=== PATIENT | male | born 1945 | race Caucasian/White ===

== ENCOUNTER 2018-07-07 11:53 | Emergency (ER) | payer MEDICARE, OTHER, SELFPAY ==
[2018-07-07 11:54] VITALS: BP 154/82; PULSE 96; RESP 17; TEMP 37.9; O2SAT 97; BMI 27.9
[2018-07-07] MEDS: 0.9% Normal Saline 1,000 ML 999 ML IV (12:52)
[2018-07-07 12:55] LABS: Mucous, Urine 0 SEEN /hpf (<or=2+)
[2018-07-07 12:56] LABS: Absolute Lymphocyte Count 0.92 X10^3/ul (0.83-4.51); Absolute Neutrophil Count 13.9 X10^3/uL (2.0-7.7); Basophil# 0.04 X10^3/uL; Basophil% 0.3 % (0-1); Eosinophil# 0.04 X10^3/uL; Eosinophils% 0.3 % (0-5); Hematocrit 41.8 % (40-54); Hemoglobin 14.1 g/dl (13.0-16.5); Lymphocyte # 0.92 X10^3/ul (4.0); Lymphocyte % 5.8 % (19-41); Mean Corp Hgb Conc 33.7 g/gl (32-36); Mean Corpuscular Hgb 31.3 pg (27.0-32.0); Mean Corpuscular Volume 92.9 fL (80-94); Mean Platelet Vol. 9.7 fl (6.2-12.0); Monocyte# 1.09 X10^3/uL; Monocyte% 6.8 % (0-10); Neutrophil # 13.85 X10^3/uL (2.7-7.7); Neutrophil % 86.6 % (47-70); Platelet Count 143 K/mm3 (150-450); RBC Distribution Width CV 12.2 % (11.6-14.6)
[2018-07-07 12:56] LABS: Color, Urine Yellow (Yellow); Glucose, Dipstick Normal (Normal); Ketone-Dipstick Negative (Negative); Leukocyte Esterase-Dipstick 500 /ul (Negative); Nitrite-Dipstick Positive (Negative); Occult Blood-Urine 150 /ul (Negative); Protein-Dipstick 30 mg/dl (Negative); Urine Bilirubin Dipstick Negative (Negative); Urine Clarity Cloudy (Clear); Urine Urobilinogen 1 mg/dl (Normal)
[2018-07-07 12:57] LABS: POSITIVE COUNT NO; POSITIVE DIFFERENTIAL NO; POSITIVE MORPHOLOGY NO
[2018-07-07 13:04] LABS: Bacteria 2+ /hpf (None Seen); Red Blood Cells-Urine 0-5 SEEN /hpf (0-5); Squamous Epithelial Cells - UA 0-5 SEEN /hpf (0-5); White Blood Cells 50-100 SEEN /hpf (0-5)
[2018-07-07 13:06] LABS: Anion Gap 10 (5-15); BUN 16 mg/dL (7-18); BUN/Creat Ratio 14.3 RATIO (10-20); Calcium,Total 8.9 mg/dL (8.5-10.1); Chloride 105 mmol/L (98-107); Creatinine, Serum 1.12 mg/dL (0.70-1.30); EST Glomerular Filtration Rate 69 mL/min (>60); Est Glom Filt Rate - Afr Amer 83 mL/min (>60); Estimated Creatinine Clearance 61.56 ml/min; Glucose 108 mg/dL (74-106); Potassium 4.1 mmol/L (3.5-5.1); Sodium Level 141 mmol/L (136-145)
[2018-07-07 13:11] LABS: Lactic Acid 1.8 mmol/L (0.4-2.0)
--- NOTE | 2018-07-07 13:25 | ED.DCSUM_ITS ---
- ER Visit Summary Date of Service: 07/07/18 Chief Complaint: Fever and UTI History of Present Illness: The patient is a 73 M who presents with dysuria frequency and urgency. This is been present for about 3 days. He was seen at the urgent care earlier today and diagnosed with a UTI and prescribed Cipro. His temperature was 100.5. He states the healthcare provider warned them multiple times that if his temperature was over 101 however he needed to go to the emergency department. He was monitoring his temperature at home and had a fever of 101.3. He also reports some associated headache and nausea. He complains of chronic cough and chronic back pain which are unchanged. He does have a history of BPH. No vomiting. No diarrhea. Physical Examination: Temperature 100.2 vitals otherwise unremarkable Moist mucous membranes Heart regular rate and rhythm Lungs clear Abdomen soft nontender Alert Test Results: Laboratory studies notable for white blood cell count 16,000. Urinalysis is consistent with infection with 500 leukocyte esterase, positive nitrates, 50-100 WBCs and 2+ bacteria. Renal function is normal and lactic acid is normal. Emergency Department Course and Treatment: Patient was treated with IV fluids here. On reevaluation he states that he feels well. He does have a leukocytosis but he does not have evidence of severe sepsis or septic shock. We discussed hospital observation versus close outpatient follow-up. The patient would prefer to go home. He was instructed on specific signs and symptoms to monitor for. He was given clear instructions to return to the emergency departm ent for any new or worsening symptoms and will follow up with his primary care physician as an outpatient. We also sent a urine culture. Patient discharged. Treatment Plan: [] Disposition: Discharge Impression: UTI This note was generated with [employer] dictation software. It may contain incorrect words, spelling, and punctuation that were not noted in review of the chart prior to signing ED Disposition - Plan for ED Patient: Chief Complaint: Fever Referrals: Adam Jones MD [Primary Care Provider] -
--- NOTE | 2018-07-07 13:25 | ED.DEP ---
ED Disposition - Plan for ED Patient: Chief Complaint: Fever Instructions: ED UTI Cystitis Male Referrals: Adam Jones MD [Primary Care Provider] -
[2018-07-07 13:36] VITALS: PULSE 95; RESP 17; O2SAT 100
== END 2018-07-07 13:37 | disposition home or self-care (01) ==
LOC: ED 12:37
PROVIDERS: Emergency Provider Emergency Medicine; Family Provider Family Medicine; PCP Family Medicine
DX: N39.0 Urinary tract infection, site not specified (principal); I25.10 Atherosclerotic heart disease of native coronary artery without angina pectoris; I25.2 Old myocardial infarction; I10 Essential (primary) hypertension; N40.1 Benign prostatic hyperplasia with lower urinary tract symptoms; R35.0 Frequency of micturition; R39.15 Urgency of urination; Z79.82 Long term (current) use of aspirin; Z79.899 Other long term (current) drug therapy
CPT/HCPCS: 36415; 80048; 81001; 83605; 85025; 87040; 87086; 87088; 96360; 99283; J7030

== ENCOUNTER 2018-07-08 19:12 | Emergency (ER) | payer MEDICARE, OTHER, SELFPAY ==
[2018-07-08 19:13] VITALS: BP 115/77; PULSE 122; RESP 19; TEMP 39.4; O2SAT 98; BMI 26.6
[2018-07-08 20:22] LABS: Absolute Lymphocyte Count 0.89 X10^3/ul (0.83-4.51); Absolute Neutrophil Count 15.9 X10^3/uL (2.0-7.7); Basophil# 0.02 X10^3/uL; Basophil% 0.1 % (0-1); Differential Indicated SCAN CRITERIA MET; Eosinophil# 0.01 X10^3/uL; Eosinophils% 0.1 % (0-5); Hematocrit 39.2 % (40-54); Hemoglobin 12.9 g/dl (13.0-16.5); Lymphocyte # 0.89 X10^3/ul (4.0); Lymphocyte % 4.9 % (19-41); Mean Corp Hgb Conc 32.9 g/gl (32-36); Mean Corpuscular Hgb 30.6 pg (27.0-32.0); Mean Corpuscular Volume 93.1 fL (80-94); Mean Platelet Vol. 10.4 fl (6.2-12.0); Monocyte# 1.53 X10^3/uL; Monocyte% 8.3 % (0-10); Neutrophil # 15.85 X10^3/uL (2.7-7.7); Neutrophil % 86.4 % (47-70); POSITIVE COUNT NO; POSITIVE DIFFERENTIAL YES; POSITIVE MORPHOLOGY YES; Platelet Count 116 K/mm3 (150-450); RBC Distribution Width CV 12.8 % (11.6-14.6); RBC Distribution Width SD 43.4 fl (35.1-43.9); Red Blood Count 4.21 M/mm3 (4.6-6.2); White Blood Count 18.3 K/mm3 (4.4-11.0)
[2018-07-08] MEDS: 0.9% Normal Saline 1,000 ML 1000 ML IV (20:22)
[2018-07-08] MEDS: Ceftriaxone 1 GM/50 ML BAG IV (20:22)
[2018-07-08] MEDS: Ibuprofen 600 MG Tablet PO (20:22)
[2018-07-08 20:31] LABS: Anion Gap 7 (5-15); BUN 19 mg/dL (7-18); BUN/Creat Ratio 14.8 RATIO (10-20); Calcium,Total 8.8 mg/dL (8.5-10.1); Chloride 105 mmol/L (98-107); Creatinine, Serum 1.28 mg/dL (0.70-1.30); EST Glomerular Filtration Rate 59 mL/min (>60); Est Glom Filt Rate - Afr Amer 71 mL/min (>60); Estimated Creatinine Clearance 53.86 ml/min; Glucose 104 mg/dL (74-106); Potassium 3.7 mmol/L (3.5-5.1); Sodium Level 137 mmol/L (136-145)
[2018-07-08 20:43] LABS: Anisocytosis RARE; Macrocytosis RARE; Platelet Estimate SLT DEC (ADEQ)
[2018-07-08 22:03] VITALS: BP 137/86; PULSE 87; RESP 17; TEMP 37.1; O2SAT 96
--- NOTE | 2018-07-08 22:13 | ED.VISSUMM ---
- ER Visit Summary Date of Service: 07/08/18 Chief Complaint: Fever History of Present Illness: The patient is a 73 M history of hypertension and BPH. Prior CABG and bovine heart valve. Patient was seen and treated yesterday in the emergency department. Diagnosed with a UTI. And discharged home on Cipro. He had blood and urine culture sent yesterday which have not returned as of yet. He had continued fever today and they brought him in for further evaluation. He has had nausea and vomited once today. No diarrhea. No cough. Physical Examination: Vital signs are stable. Fever is 102.9. Pulse ox 98% on room air. No hypoxia. Initial blood pressure is 115/77. He does not look septic. He does not look toxic. He does not look significantly dehydrated. H EENT exam unremarkable. Moist mucous membranes. Neck nontender. No meningismus. Lungs there to auscultation bilaterally. Heart regular rhythm rate about 120 no murmur. Abdomen soft. Nondistended. Normal bowel sounds. Mild suprapubic discomfort. No hernias or masses. No peritoneal signs. He is moving all 4 extremities. Calves are nontender without edema. Skin is without rashes. No petechiae or purpura. Back is nontender. Neurologically he is awake and alert with no focal motor deficits. I did do a rectal exam on the patient he has a firm nontender and non-boggy prostate. Currently he does not have signs of a prostate infection. Test Results: CBC showed a white count of 18,300. Yesterday it was 16,000. Hemoglobin of 12.1. No bands. Chemistries normal. Creatinine of 1.2. Emergency Department Course and Treatment: Patient treated with IV fluids. P.o. Motrin in the ER. And 1 g of IV Rocephin. Repeat exam he is doing very well at 2205. He feels comfortable being discharged home. He has been up ambulating. His blood pressure is stable. Currently he is afebrile. Both he and his are comfortable with him being discharged home. Treatment Plan: Tenuous current medications and his current antibiotic. Follow-up with his primary care physician Dr. Jones in the next several days. Return if worse. Disposition discharge Impression: Acute fever secondary to UTI This note was generated with [employer] dictation software. It may contain incorrect words, spelling, and punctuation that were not noted in review of the chart prior to signing ED Disposition - Plan for ED Patient: Chief Complaint: Fever Referrals: Adam Jones MD [Primary Care Provider] -
--- NOTE | 2018-07-08 22:18 | ED.DEP ---
ED Disposition - Plan for ED Patient: Disposition: Home or Assisted Living Chief Complaint: Fever Instructions: ED UTI Cystitis Male Referrals: Adam Jones MD [Primary Care Provider] - As soon as possible Additional Instructions: Plenty of fluids and rest. Tylenol for fever and limited Motrin. Continue your current antibiotics. If the blood or urine cultures come back and are different than the antibiotic you are on he will be notified. Follow-up with your doctor this week. Return if feeling worse.
[2018-07-08 22:29] VITALS: BP 146/70; PULSE 76; RESP 20; O2SAT 96
[2018-07-10 09:12] LABS: Pathologist Review Reviewed
== END 2018-07-08 22:30 | disposition home or self-care (01) ==
PROVIDERS: Emergency Provider Emergency Medicine; Family Provider Family Medicine; PCP Family Medicine
DX: N39.0 Urinary tract infection, site not specified (principal); R50.9 Fever, unspecified; I10 Essential (primary) hypertension; N40.0 Benign prostatic hyperplasia without lower urinary tract symptoms; I25.10 Atherosclerotic heart disease of native coronary artery without angina pectoris; Z95.1 Presence of aortocoronary bypass graft
CPT/HCPCS: 80048; 85025; 96365; 96366; 99284; J7030; A4216

== ENCOUNTER → 2020-04-13 09:55 | Outpatient (CLI) | payer MEDICARE, OTHER, SELFPAY ==
[2020-04-13 09:14] VITALS: BMI 27.5
[2020-04-13 10:55] LABS: AST(SGOT) 20 U/L (15-37); Alanine Aminotransfer ALT/SGPT 18 U/L (16-61); Albumin, Serum 3.6 g/dL (3.2-5.0); Alkaline Phosphatase 84 U/L (45-117); Bilirubin, Direct 0.16 mg/dL (0.00-0.30); Cholesterol 113 mg/dL (200); Globulin 3.2 g/dL (2.2-4.2); High Density Lipoprotein 34 mg/dL; Protein, Total 6.8 g/dL (6.4-8.2); Triglycerides 109 mg/dL; Very Low Density Lipoprotein 22 mg/dL (5-40)
== END ==
PROVIDERS: PCP Family Medicine; Referring Provider Internal Medicine Cardiovascular Disease; Visit Provider Internal Medicine Cardiovascular Disease
DX: E78.00 Pure hypercholesterolemia, unspecified (principal)
CPT/HCPCS: 36415; 80061; 80076

== ENCOUNTER → 2020-04-28 06:40 | Outpatient (CLI) | payer MEDICARE, OTHER, SELFPAY ==
[2020-04-13 09:14] VITALS: BMI 27.5
--- NOTE | 2020-04-28 06:41 | ECHOD_ITS ---
Reason For Study: VALVE REPL Procedure This was a 2D Doppler, Color Flow transthoracic echocardiogram. Exam performed in department. Left Ventricle Normal LV size. Left ventricular systolic function is normal. The estimated ejection fraction is 55 %. No regional wall motion abnormalities noted. Right Ventricle Normal RV size. Normal systolic function. Atria Normal left atrium. Normal right atrium. Mitral Valve Normal mitral valve. Aortic Valve Bioprosthetic aortic valve. Stable appearing bioprosthetic aortic valve apparatus. Great Vessels Mildly dilated aortic root. The pulmonary artery is normal size. Mobile echo noted in RV outflow tract- small. Pericardium/Pleural No pericardial effusion. MMode/2D Measurements & Calculations LVIDd: 4.5 cm IVSd: 1.1 cm Ao root diam: 4.6 cm LVIDs: 2.7 cm LVPWd: 1.1 cm RVDd: 3.7 cm FS: 39.5 % LAV(MOD-bp): 52.2 ml SV(MOD-sp4): 46.0 ml LVAd ap4: 28.7 cm2 LAV(MOD-bp) Indexed: 25.6 ml/m2 EDV(MOD-sp4): 83.6 ml LAV(MOD-sp2): 52.8 ml EDV(sp4-el): 83.8 ml LAV(MOD-sp4): 43.7 ml LVAs ap4: 17.7 cm2 ESV(MOD-sp4): 37.6 ml ESV(sp4-el): 37.3 ml EF(MOD-sp4): 55.1 % EF(sp4-el): 55.5 % SV(sp4-el): 46.5 ml LA dimension(2D): 3.8 cm LA A4 area: 15.8 cm2 RA A4 area: 14.9 cm2 Time Measurements MV dec time: 0.30 sec Doppler Measurements & Calculations MV E max ranjeet: 52.0 cm/sec Lat Peak E' Ranjeet: 7.2 cm/sec Med Peak E' Ranjeet: 7.2 cm/sec MV A max ranjeet: 36.1 cm/sec E/E' lat: 7.3 E/E' med: 7.3 MV E/A: 1.4 Ao V2 max: 181.3 cm/sec AI max ranjeet: 462.3 cm/sec LV V1 max: 77.7 cm/sec Ao max P.2 mmHg AI max P.5 mmHg LV V1 max P.4 mmHg Ao V2 mean: 125.4 cm/sec LV V1 mean P.4 mmHg Ao mean P.0 mmHg AI dec slope: 219.3 cm/sec2 LV V1 mean: 55.5 cm/sec Ao V2 VTI: 36.9 cm AI P1/2t: 617.5 msec LV V1 VTI: 18.6 cm PA V2 max: 85.5 cm/sec TR max ranjeet: 197.2 cm/sec TR max P.6 mmHg Interpretation Summary Normal LV size. Left ventricular systolic function is normal. The estimated ejection fraction is 55 %. Stable appearing bioprosthetic aortic valve apparatus. Mildly dilated aortic root. Ordering Physician: Tiago Howell Referring Physician: LETITIA CABRERA Performed By: Guicho MCDOWELL, Desiree FISHMAN and Student
--- NOTE | 2020-04-28 13:03 | STRESSREP_ITS ---
Stress Test Report Exercise myocardial perfusion stress test. 74-year-old man with a history of a bioprosthetic aortic valve. Stress protocol: Resting EKG demonstrates sinus bradycardia with a rate of 53 bpm normal intervals are noted resting blood pressure is 120/74 mmHg. The patient exercised according to regular Dane protocol for total duration of 9 minutes. The maximum heart rate attained was 146 bpm which was 99% of maximum predicted heart rate the maximum workload was 10.1 metabolic equivalents. The patient maintained sinus rhythm throughout the recording. At rest there were no ST or T wave changes noted to suggest ischemia at peak exercise upsloping ST changes only were noted with no meet the criteria for ischemia. The resting blood p ressure was 120/74 with a peak blood pressure 154/70 mmHg. Myocardial perfusion protocol. 11.4 mCi of technetium 99m sestamibi was injected at rest. The patient exercised according to regular Dane protocol for a total duration of 9 minutes. At peak exercise 33.3 mCi of technetium 99m sestamibi was injected stress images were obtained stress and rest images were reconstructed and compared in the short axis vertical long horizontal long axis. Gated images were also obtained Perfusion SPECT analysis: Review of the stress images demonstrate normal uptake of tracer noted in all areas of the myocardium the resting images similar demonstrate normal uptake of tracer noted in all areas of the myocardium. No areas of reversibility are noted suggest ischemia no previous infarct is noted. Gated SPECT analysis: The gated ejection fraction is noted to be 59%. Conclusion: Normal exercise myocardial perfusion stress test with no evidence of ischemia at a high workload. Preserved ejection fraction.
== END ==
PROVIDERS: PCP Family Medicine; Referring Provider Internal Medicine Cardiovascular Disease; Visit Provider Internal Medicine Cardiovascular Disease
DX: I25.10 Atherosclerotic heart disease of native coronary artery without angina pectoris (principal); Z95.1 Presence of aortocoronary bypass graft
CPT/HCPCS: 78452; 93017; 93306; A9500; A4216

== ENCOUNTER → 2020-05-10 07:42 | Outpatient (CLI) | payer MEDICARE, OTHER, SELFPAY ==
[2020-04-13 09:14] VITALS: BMI 27.5
--- NOTE | 2020-05-10 07:42 | CT_ITS ---
STUDY: CTA CHEST REASON FOR EXAM: Male, 74 years old. DILATED AORTA, PREV VALVE REPLACEMENT SURG, HTN RADIATION DOSAGE (If Supplied By Facility): CTDIvol = ( 14.61 ) mGy, DLP = ( 484.06 ) mGycm TECHNIQUE: The examination was performed with the intravenous administration of 100ML ISOVUE 370. Post-processing of the angiographic images was performed, with multiplanar reformation and 3D reconstruction. Individualized dose optimization techniques were used for this CT. COMPARISON: None. FINDINGS: Small benign-appearing bilateral axillary lymph nodes. Normal enhancement of the main pulmonary artery and right and left pulmonary arteries. Normal enhancement of the bilateral peripheral pulmonary arteries. There is no demonstrated pulmonary embolism. There is aneurysmal dilatation of the ascending aorta. The transverse diameter of the ascending aorta measures 46 mm''s. There is no demonstrated aortic dissection. There are calcifications of the coronary arteries. Sternal cerclage wires and vascular clips are present from a prior sternotomy and coronary artery bypass graft procedure (CABG). Normal mediastinum. Normal hilar regions. Normal visualized trachea and bronchi. The lungs are well expanded. Minimal increased markings at the lung bases suggestive of linear scarring. Normal pleura. Normal chest wall structures. There are degenerative changes of thoracic spine. Normal visualized upper abdomen. CT/CTA Chest W/WO Contrast IMPRESSION: There is aneurysmal dilatation of the ascending aorta measuring 46 mm. Electronically Signed: Loco Bee, at 8:58 EDT , Service support ,
[2020-05-10 08:20] LABS: CREATININE FINGERSTICK 1.1 mg/dL (0.70-1.30); EGFR FINGERSTICK > 60.0000 mL/min (>60)
== END ==
PROVIDERS: PCP Family Medicine; Referring Provider Internal Medicine Cardiovascular Disease; Visit Provider Internal Medicine Cardiovascular Disease
DX: Z95.2 Presence of prosthetic heart valve (principal)
CPT/HCPCS: 71275; Q9967

== ENCOUNTER 2022-04-04 06:22 | Day surgery (SDC) | payer OTHER, SELFPAY ==
[2022-04-04] MEDS: Lactated Ringers 1,000 ML 15 ML IV (06:35)
[2022-04-04 06:43] VITALS: BP 121/74; PULSE 65; RESP 16; TEMP 36.6; O2SAT 99; BMI 26.9
--- NOTE | 2022-04-04 07:30 | COLBX_PTH ---
PATIENT: PURA VEGA LOC: EN U#:[id number] AGE/SX: 76/M ROOM: RE04/04/[address]: Dr. Rakesh Tipton MD : 1945 BED: DIS: 04/04/2022 SPEC #: [id number] RECD: 04/04/22 11:27 STATUS: LISSETTE YESIKA #: [id number] CHRIS: 04/04/22 07:[address]: Rakesh Tipton DEPT: SURGICAL PATHOLOGY RECD BY: Soy Rollins ENTERED: 04/04/22 13:49 SP TYPE: COLON BX OTHR DR: Dr. Wade Barclay MD Tissues: Sigmoid colon biopsy Procedures: Surgery Specimen Level IV HEADER OPERATION: Colonoscopy (MAC) PRE-OP DIAGNOSIS: History of colon polyps TISSUE SUBMITTED: Sigmoid polyp MICROSCOPIC DIAGNOSIS Sigmoid colon polyp, biopsy: Hyperplastic polyp. AM:marie 04/05/2022 MICROSCOPIC DESCRIPTION Slides are reviewed. GROSS DESCRIPTION Received in fixative is one container labeled with the patient's name and designated sigmoid polyp. The specimen consists of multiple irregular fragments of light feliciano soft tissue that in aggregate measure 1 x 0.5 x 0.1 cm. The specimen is totally submitted in one cassette. / SJ:marie 04/04/2022 TC:5 CPT: 09985
--- NOTE | 2022-04-04 07:31 | PCM.HP.BLA ---
History and Physical Date of Admission: 04/04/22 Intake Vital Signs ? 03/13/2208:08 Height 5 ft 10 in Weight: 196 lb 8 oz BMI 28.2 BP 121/76 H Blood Pressure Location Rt brachial Position Sitting Respiration 16 Pulse 56 L Pulse Source Monitor Temp 97.5 F L Temp Source Temporal Pulse Oximetry (%) 97 Oxygen Delivery Method room air Intake Visit Reasons:?COLONOSCOPY Chief Complaint: colonoscopy consult Integrity Assessor Required: No Accompanied by: Is patient in pain?: No Allergies No Known Allergies Allergy (Verified 04/19/21 08:53) Medications aspirin 81 mg PO DAILY@0800? tab.chew 09/04/16 [Rx Confirmed 03/13/22] hydrochlorothiazide 25 mg tablet 25 mg PO DAILY #90 tab 04/19/21 [Rx Confirmed 03/13/22] tiotropium bromide 2.5 mcg/actuation mist for inhalation 2 inh INHALATION QAM 04/19/21 [History Confirmed 03/13/22] lisinopril 20 mg tablet 20 mg PO QDAY #90 tab 08/12/21 [Rx Confirmed 03/13/22] atorvastatin 40 mg tablet 40 mg PO QHS #90 tab 11/14/21 [Rx Confirmed 03/13/22] pantoprazole 40 mg tablet,delayed release 40 mg PO DAILY 03/13/22 [History Confirmed 03/13/22] paroxetine HCl 20 mg tablet 20 mg PO DAILY 03/13/22 [History Confirmed 03/13/22] PFSH Medical History? Atherosclerotic heart disease of [place] coronary artery without angina pectoris COPD (chronic obstructive pulmonary disease) Essential (primary) hypertension History of non-ST elevation myocardial infarction (NSTEMI) (08/2016) Hyperlipidemia Non-rheumatic aortic stenosis Thoracic aortic aneurysm (TAA) Surgical History? H/O coronary artery bypass surgery (10/11/16) History of aortic valve replacement (10/11/16) History of left heart catheterization (09/02/16) Family History? Father CAD (coronary artery disease)Brother CAD (coronary artery disease) Social History? Smoking Status:? Never smoker alcohol intake:? never caffeine:? Yes Type: coffee Number of servings: 3 HPI HPI HPI: PURA VEGA, is a 76 M who presents to the office today for history of polyps.? Patient has last colonoscopy in 2014 and had 3 polyps at that time and was recommended to have another one in 3 years and did not.? The patient is denying any abdominal pain or blood in his stool. ROS General General: No weight change, appetite, fatigue, colon cancer, breast cancer or weakness HEENT HEENT: No difficulty swallowing, eye injury, eye surgery, swollen glands or hoarseness Endo Endocrine: No thyroid disease, diabetes mellitus, thyroid cancer, Hair loss, heat intolerance or cold intolerance Skin Skin: No rash or changing moles Breast Breast: No left breast lump, right breast lump, nipple discharge, breast pain, abnormal mammogram, abnormal US or breast enlargement Musc Musculoskeletal: Yes arthritis; No back problems, rheumatoid arthritis, gout or joint pain Cardio Cardiovascular: Yes murmur and heart disease; No pacemaker, atrial fibrillation, high blood pressure, heart attack, heart stent, palpitations, shortness of breat with exertion or chest pain Psych Psychiatric: Yes anxiety; No depression or hearing voices Additional Details: PTSD Resp Respiratory: No shortness of breath, No sleep apnea, No cough, Yes COPD, No asthma, No emphysema and No wheezing Gastro Gastrointestinal: No abdominal pain, No nausea or vomiting, No diarrhea, No constipation, No blood in stool, No acid reflux, No hemorrhoids, No ulcers, No gallbladder problem and No black,tarry stools Nj Hematologic: Yes blood thinners, No blood disorders, No bleeding, No anemia and No blood clots Additional Details: 81mg ASA Neuro Neurologic: No system reviewed and no additional complaints, except as documented, No as per HPI, No abnormal gait, No abnormal hearing, No abnormal movements, No abnormal speech, No behavioral changes, No burning sensations, No confusion, No convulsions, No disequilibrium, No dizziness, No localized weakness, No frequent falls, No headache(s), No lack of coordination, No loss of vision, No memory loss, No numbness, No other visual disturbances, No radicular pain, No restless legs, No sensory deficit, No syncope, No tingling, No tremor(s), No weakness and No other Exam Const General: cooperative Orientation: alert and oriented x3 HENMT Head: normal to inspection Neck Neck: normal visual inspection and full ROM Chest Chest palpation & inspection: normal inspection of the chest Resp Effort & Inspection: normal respiratory effort Auscultation: clear to auscultation bilaterally Cardio Rate: regular rate Rhythm: regular rhythm GI Inspection: non-distended Palpation: soft and nontender Skin General: no rashes or lesions noted Neuro General: patient alert and patient oriented x3 Extrem General: full ROM Psych Appearance: grossly normal Mental Status: mental status grossly normal Assessment and Plan Assessment and Plan (1) History of colon polyps: ?Status:?Acute ? ? ? Orders:?Orders: ? Colonoscopy Today ?Plan - Dr. Rakesh Tipton MD: Patient has a history of colon polyps and needs a surveillance colonoscopy. I explained endoscopy in detail to the patient.? I explained the risks including but not limited to stroke or heart attack with anesthesia, perforation of the GI tract, bleeding, infection.? I explained that any of these could necessitate further emergency surgery.? The patient understands and all questions were answered sufficiently.? The patient wishes to proceed with procedure. Rakesh Tipton MD Pager: [facility] [address] [place] [address], [address] [place] [address] Office: I have re-examined the patient. There are no clinical changes since date of exam.
[2022-04-04 07:52] VITALS: BP 121/74; BP 71/50; PULSE 53; RESP 16; O2SAT 98
[2022-04-04 07:53] VITALS: BP 121/74; BP 72/56; PULSE 57; RESP 16; TEMP 36.2; O2SAT 99
--- NOTE | 2022-04-04 07:54 | OP.CCLET_ITS ---
04/04/2022 Out Of Town Doctor Re : Colonoscopy procedure for Guilherme Young Dear [facility] Doctor This procedure was performed on Monday, April 04, 2022. My impressions and recommendations are as follows: Impressions : - One small polyp in the sigmoid colon, removed with a hot snare. Resected and retrieved. - The examination was otherwise normal on direct and retroflexion views. Recommendations : - Discharge patient to home. - Resume previous diet. - Continue present medications. - Await pathology results. - Repeat colonoscopy date to be determined after pending pathology results are reviewed for surveillance based on pathology results. My findings are described in the full procedure note, which is enclosed. If I can be of further assistance, please feel free to contact me at Doctor phone number(s): , Work: . Sincerely, Rakesh Tipton MD 04/04/2022 7:53:45 AM This report has been signed electronically.
--- NOTE | 2022-04-04 07:54 | OP.COLON_ITS ---
Patient Name: Guilherme Young Procedure Date: 04/04/2022 7:22 AM Date of : 1945 Age: 76 Procedure: Colonoscopy Indications: High risk colon cancer surveillance: Personal history of colonic polyps Providers: Rakesh Tipton MD Medicines: Monitored Anesthesia Care Patient Profile: This is a 76 year old male. Refer to note in patient chart for documentation of history and physical. Last Colonoscopy: 5 years ago. Complications: No immediate complications. Procedure: Pre-Anesthesia Assessment: - Prior to the procedure, a History and Physical was performed, and patient medications and allergies were reviewed. The patient's tolerance of previous anesthesia was also reviewed. The risks and benefits of the procedure and the sedation options and risks were discussed with the patient. All questions were answered, and informed consent was obtained. Prior Anticoagulants: The patient has taken no previous anticoagulant or antiplatelet agents. After reviewing the risks and benefits, the patient was deemed in satisfactory condition to undergo the procedure. After I obtained informed consent, the scope was passed under direct vision. Throughout the procedure, the patient's blood pressure, pulse, and oxygen saturations were monitored continuously. The colonoscope was introduced through the anus and advanced to the cecum, identified by appendiceal orifice and ileocecal valve. The colonoscopy was performed without difficulty. The patient tolerated the procedure well. The quality of the bowel preparation was good. Scope In: 7:33:25 AM Scope Withdrawal Time 0 hours 10 minutes 20 seconds Scope Out: 7:49:11 AM Total Procedure Duration Time 0 hours 15 minutes 46 seconds Findings: A small polyp was found in the sigmoid colon. The polyp was removed with a hot snare. Resection and retrieval were complete. The exam was otherwise without abnormality on direct and retroflexion views. Impression: - One small polyp in the sigmoid colon, removed with a hot snare. Resected and retrieved. - The examination was otherwise normal on direct and retroflexion views. Recommendation: - Discharge patient to home. - Resume previous diet. - Continue present medications. - Await pathology results. - Repeat colonoscopy date to be determined after pending pathology results are reviewed for surveillance based on pathology results. Procedure Code(s): --- Professional --- 75841, Colonoscopy, flexible; with removal of tumor(s), polyp(s), or other lesion(s) by snare technique Diagnosis Code(s): --- Professional --- Z86.010, Personal history of colonic polyps D12.5, Benign neoplasm of sigmoid colon CPT copyright 2017 [employer]. All rights reserved. The codes documented in this report are preliminary and upon global chief creative officer review may be revised to meet current compliance requirements. Rakesh Tipton MD 04/04/2022 7:53:45 AM This report has been signed electronically. Number of Addenda: 0 Note Initiated On: 04/04/2022 7:22 AM
[2022-04-04 08:05] VITALS: BP 121/74; BP 84/57; PULSE 52; RESP 16; O2SAT 96
[2022-04-04 08:10] VITALS: BP 121/74; BP 73/46; PULSE 53; RESP 16; O2SAT 97
[2022-04-04 08:13] VITALS: BP 101/73; BP 121/74; PULSE 58; RESP 16; TEMP 36.6; O2SAT 97
== END 2022-04-04 09:01 | disposition home or self-care (01) ==
LOC: EN 06:23 → AC 06:27
PROVIDERS: PCP Family Medicine; Referring Provider Family Medicine; Visit Provider Surgery
PROC: 0DJD8ZZ Inspection of Lower Intestinal Tract, Via Natural or Artificial Opening Endoscopic (ICD-10-PCS; CPT 45378; principal; 2022-04-04 07:25)
DX: Z12.11 Encounter for screening for malignant neoplasm of colon (principal); J44.9 Chronic obstructive pulmonary disease, unspecified; D12.5 Benign neoplasm of sigmoid colon; I25.10 Atherosclerotic heart disease of native coronary artery without angina pectoris; I25.2 Old myocardial infarction; I10 Essential (primary) hypertension; Z95.1 Presence of aortocoronary bypass graft; Z95.4 Presence of other heart-valve replacement; Z79.82 Long term (current) use of aspirin; Z79.899 Other long term (current) drug therapy; Z86.010 Personal history of colon polyps
CPT/HCPCS: 45385; 88305; J7120; J2405

== ENCOUNTER 2022-05-20 12:41 | Emergency (ER) | payer MEDICARE, OTHER, SELFPAY ==
[2022-05-20 12:42] VITALS: BP 154/68; PULSE 76; RESP 16; TEMP 36.3; O2SAT 99; BMI 27.2
--- NOTE | 2022-05-20 12:58 | EDS_ITS ---
HPI History of Present Illness Chief Complaint: Back Detail of Chief Complaint: Back pain that started initially 3 days ago. Informant: patient Narrative Narrative: Patient presents the emergency department complaint of back pain which she thinks is sciatica that started 3 days ago. Patient states that 3 days ago he climbed a ladder and when he came back down the ladder he had pain in his right low back going down his right leg. Symptoms gradually improved and mostly resolved yesterday and he felt well this morning when he first woke up. Patient climbed a ladder again and when he walked back down the ladder he noted that discomfort came back and stating that there is severe pain radiating down the back of his right leg to his ankle. He denies any weakness in the extremity. He denies change in bowel or bladder function. He denies fall or injury. He denies recent illness. Prior similar symptoms: No PFSH PFS Medical History (Updated 05/20/22 @ 13:[address] Debbie Palacios, DO) Anxiety Arthritis Atherosclerotic heart disease of [place] coronary artery without angina pectoris Back pain Chronic cough COPD (chronic obstructive pulmonary disease) Depression Essential (primary) hypertension Former smoker History of colon polyps History of non-ST elevation myocardial infarction (NSTEMI) (08/2016) Hyperlipidemia Leg cramps Non-rheumatic aortic stenosis Shortness of breath on exertion Thoracic aortic aneurysm (TAA) Wears dentures Wears glasses Wears hearing aid Home Medications aspirin 81 mg chewable tablet 81 mg PO DAILY@0800 09/04/16 [Rx Last Taken Unknown] tiotropium bromide 2.5 mcg/actuation mist for inhalation (Spiriva Respimat) 2 inh inhalation QAM 04/19/21 [History Last Taken Unknown] lisinopril 20 mg tablet 20 mg PO QDAY #90 tabs 08/12/21 [Rx Last Taken Unknown] pantoprazole 40 mg tablet,delayed release 40 mg PO DAILY 03/13/22 [History Last Taken Unknown] paroxetine HCl 20 mg tablet 20 mg PO DAILY 03/13/22 [History Last Taken Unknown] potassium 99 mg tablet 99 mg PO DAILY 03/29/22 [History Last Taken Unknown] hydrochlorothiazide 25 mg tablet 25 mg PO DAILY #90 tabs 04/17/22 [Rx Last Taken Unknown] atorvastatin 40 mg tablet 40 mg PO QHS 04/20/22 [History Last Taken Unknown] cyclobenzaprine 10 mg tablet 10 mg PO TID PRN Muscle Spasm #20 TABLETS 05/20/22 [Rx Last Taken Unknown] hydrocodone-acetaminophen 5-325mg 5mg-325mg 1 tab PO Q4H PRN PRN Pain 3 days #15 TABLETS 05/20/22 [Rx Last Taken Unknown] methylprednisolone 4 mg tablets in a dose pack (Medrol (Anuel)) 4 mg PO DAILY #21 tabs 05/20/22 [Rx Last Taken Unknown] Allergy/AdvReac Type Severity Reaction Status Date / Time No Known Allergies Allergy Verified 05/20/22 12:42 Family History Father CAD (coronary artery disease) Brother CAD (coronary artery disease) Surgical History H/O coronary artery bypass surgery (10/11/16) History of aortic valve replacement (10/11/16) History of left heart catheterization (09/02/16) Hx of colonoscopy Hx of surgical procedure Social History Smoking Status: Former smoker alcohol intake: never caffeine: Yes Type: coffee Number of servings: 3 ROS ROS ED Review of Systems ROS Unobtainable: other Constitutional Constitutional ED: Reports lethargy; Denies chills, fever(s), sweats or weight loss Eyes Eyes: Denies blurry vision, change in vision or diplopia ENT ENT ED: Denies rhinorrhea or sore throat Cardiovascular Cardiovascular: Reports chest pain and racing heartbeat; Denies orthopnea Respiratory/Chest Respiratory/Chest: Reports dyspnea and dyspnea on exertion; Denies cough, orthopnea or sputum Gastrointestinal Gastrointestinal: Denies abdominal pain, diarrhea, nausea or vomiting Genitourinary Genitourinary ED: Denies dysuria, hematuria or urinary frequency Musculoskeletal Musculoskeletal: Reports back pain and other Details: Back pain with pain down right leg ; Denies arthralgias, myalgias or neck pain Integumentary Denies abscess, Abrasions or rash Neurologic Neurologic: Denies headache(s) or weakness Psychiatric Psychiatric: Denies anxiety, depression or suicidal thoughts Endocrine Endocrinology: Denies polydipsia, polyphagia or polyuria Hematologic/Lymphatic Hematologic/Lymphatic: Denies easy bleeding, easy bruising or lymphadenopathy Allergic/Immunologic Allergic/Immunologic ED: Denies mouth swelling, tongue swelling or urticaria EXAM Physical Exam Const Vital Signs: 05/20/22 12:42 Temperature 97.3 F L Temperature Source Temporal Pulse Rate 76 Respiratory Rate 16 Blood Pressure 154/68 H Blood Pressure Mean 96 Pulse Ox 99 Oxygen Delivery Method Room Air Positive well nourished and well developed General Appearance ED: well developed and NAD HEENT Reports TM's clear and moist mucous membranes normocephalic and atraumatic; Negative for trauma or tenderness Tympanic Membrane ED: Yes TM's clear Eyes PERRL and EOMs intact bilaterally General Eye ED: Negative for pale conjunctiva or scleral icterus Neck no lymphadenopathy, supple and no JVD General: Negative for tenderness Chest Wall inspection of chest normal and palpation of chest normal Chest: Negative for tenderness Resp normal respiratory effort and clear to auscultation bilaterally Effort and Inspection: Negative for respiratory distress or pain with movement Auscultation: Negative for rhonchi, wheezes or diminished lung sounds Cardio regular rate, regular rhythm, S1 normal heart sound, S2 normal heart sound and no murmurs Peripheral Pulses: pulses 2+ throughout GI normal to inspection, nondistended, normoactive bowel sounds, soft to palpation, non-tender, non-distended and no masses Back/Spine no CVA tenderness and no thoracic nor lumbar tenderness Back/Spine Narrative: I am unable to reproduce patient's pain with palpation of his back. Patient has a positive straight leg raise while seated at approximately 45 degrees. Deep tendon reflexes are +2-4 bilaterally at the patella and Achilles. Patient has normal 5 extension bilaterally. Patient has normal sensation to light touch. Extremity normal to inspection Extremity Narrative: Normal pulses both lower extremities. Extremities are warm with normal cap refill. General Extremety ED: Negative for edema General Extremity: Negative for edema Neuro oriented x3, CN's II-XII intact bilaterally, no sensory deficits noted and gait normal Sensorium / Orientation: awake, alert, oriented to person, oriented to place and oriented to time Motor Exam: strength 5/5 throughout and strength abnormal Psych mental status grossly normal Skin no rashes or lesions noted and no wounds MDM MDM MDM Narrative Medical decision making narrative: Patient was medicated with Dilaudid, Norflex, and Zofran. I suspect he has sciatica. I do not feel any type of x-rays and or imaging is indicated. No red flag symptoms or signs of cauda equina. Patient will be given a prescription for Flexeril, [place], and Medrol Dosepak. Patient to follow-up with primary care physician in 3 to 5 days. Patient advised to return if worsening pain, weakness in extremity, change in bowel or bladder function, or condition should worsen anyway. Discharge Plan Triage Chief Complaint: Back ED Provider: Debbie Palacios Dx/Rx/DC Orders Clinical Impression: Sciatica Instructions: ED Back Pain (Acute or Chronic), ED Sciatica Prescriptions: New cyclobenzaprine [cyclobenzaprine] 10 mg tablet 10 mg PO TID PRN (Reason: Muscle Spasm) Qty: 20 0RF hydrocodone-acetaminophen [hydrocodone-acetaminophen] 5-325 mg tablet 1 tab PO Q4H PRN PRN (Reason: Pain) 3 Days Qty: 15 0RF methylprednisolone [Medrol (Anuel)] 4 mg tablets,dose pack 4 mg PO DAILY Qty: 21 0RF No Action Spiriva Respimat 2.5 mcg/actuation mist 2 inh inhalation QAM pantoprazole 40 mg tablet,delayed release (DR/EC) 40 mg PO DAILY paroxetine HCl 20 mg tablet 20 mg PO DAILY aspirin 81 MG tablet,chewable 81 mg PO DAILY@0800 0RF potassium 99 mg Tablet 99 mg PO DAILY atorvastatin 40 mg tablet 40 mg PO QHS lisinopril 20 mg tablet 20 mg PO QDAY Qty: 90 3RF hydrochlorothiazide 25 mg tablet 25 mg PO DAILY Qty: 90 3RF Primary Care Provider: Wade Barclay Referrals: Wade Barclay MD [Primary Care Provider] - 3-5 Days Disposition Disposition: Home, Self Care
[2022-05-20] MEDS: Orphenadrine 60 MG/2 ML Ampul IM (13:05)
[2022-05-20] MEDS: HYDROmorphone 1 MG/ML Syringe IM (13:05)
[2022-05-20] MEDS: Ondansetron 4 MG/2 ML Vial IM (13:05)
[2022-05-20] MEDS: predniSONE 20 MG Tablet 40 MG PO (13:47)
[2022-05-20] MEDS: HYDROmorphone 1 MG/ML Syringe IV (13:48)
== END 2022-05-20 14:22 | disposition home or self-care (01) ==
LOC: ED 13:11
PROVIDERS: Emergency Provider Emergency Medicine; PCP Family Medicine; Visit Provider Emergency Medicine
DX: M54.41 Lumbago with sciatica, right side (principal); J44.9 Chronic obstructive pulmonary disease, unspecified; I25.10 Atherosclerotic heart disease of native coronary artery without angina pectoris; I25.2 Old myocardial infarction; I10 Essential (primary) hypertension; E78.5 Hyperlipidemia, unspecified; Z95.1 Presence of aortocoronary bypass graft; Z95.4 Presence of other heart-valve replacement; Z79.82 Long term (current) use of aspirin; Z79.899 Other long term (current) drug therapy; Z87.891 Personal history of nicotine dependence
CPT/HCPCS: 96372; 96374; 99281; 99283; J2405

== ENCOUNTER 2022-05-26 14:56 | Observation (INO) | payer OTHER, SELFPAY ==
[2022-05-26 15:02] VITALS: BP 105/78; PULSE 88; RESP 18; TEMP 36.2; O2SAT 97; BMI 27.2
--- NOTE | 2022-05-26 15:49 | CT_ITS ---
STUDY: CT BRAIN WITHOUT CONTRAST REASON FOR EXAM: Male, 76 years old. Altered mental status. Hallucinations. RADIATION DOSAGE (If Supplied By Facility): CTDIvol = ( 44.99 ) mGy, DLP = ( 762.36 ) mGycm TECHNIQUE: Transaxial CT imaging of the brain was performed without administration of intravenous contrast material. Individualized dose optimization techniques were used for this CT. COMPARISON: No relevant priors. FINDINGS: Normal soft tissue structures. Normal calvarium. Normal size ventricles and extra-axial spaces for the patient''s age. Normal white matter tracts of the cerebral hemispheres. Normal basal ganglia and thalami. Normal brainstem. Normal cerebellum. There is no intracranial hemorrhage. There are no findings of an acute ischemic infarction. Normal visualized paranasal sinuses. CT/Brain/Head without Contrast IMPRESSION: No acute intracranial or calvarial abnormality. Electronically Signed: José Miguel Smith DO at 17:03 EDT ,
--- NOTE | 2022-05-26 15:49 | CT_ITS ---
STUDY: CT LUMBAR SPINE WITHOUT CONTRAST REASON FOR EXAM: Male, 76 years old. Neck pain. Lower leg pain. RADIATION DOSAGE (If Supplied By Facility): CTDIvol = ( 14.72 ) mGy, DLP = ( 401.9 ) mGycm TECHNIQUE: The patient was scanned in a multi detector CT scanner. High resolution transaxial imaging was performed. Images were obtained from L1 to the sacrum. Sagittal and coronal images were reconstructed. Individualized dose optimization techniques were used for this CT. COMPARISON: None FINDINGS: Mild dextroscoliosis with convexity at L3. Normal lumbar lordosis. Normal alignment of the lumbar vertebral bodies. Normal vertebrae of the lumbar spine. L1-2: Minimal endplate spondylosis. Slight loss of disc height with minimal bulging annulus. Mild facet joint degenerative change. Normal central canal and bilateral lateral recesses. Normal bilateral intervertebral neural foramina. L2-3: Normal endplates. Mild bulging annulus without loss of disc height. Facet joint degenerative change. Normal central canal and bilateral lateral recesses. Normal bilateral intervertebral neural foramina. L3-4: Endplate spondylosis. Marked loss of disc height with vacuum disc phenomenon diffusely bulging annulus. Facet joint degenerative change. Normal central canal and bilateral lateral recesses. Normal bilateral intervertebral neural foramina. L4-5: Normal endplates. Mild loss of disc height with bulging annulus. Facet joint degenerative change. Normal central canal and bilateral lateral recesses. Normal bilateral intervertebral neural foramina. L5-S1: Normal endplates. Mild bulging annulus. Facet joint degenerative change. Normal central canal and bilateral lateral recesses. Normal bilateral intervertebral neural foramina. Atherosclerotic changes of the abdominal aorta and iliac arteries. CT/Spine Lumbar without Contrast IMPRESSION: Mild degenerative change lumbar spine with dextroscoliosis. Electronically Signed: José Miguel Smith DO at 17:06 EDT Reading Location ID and State: [id number] Tel [phone], Service support ,
--- NOTE | 2022-05-26 15:58 | EKG12_ITS ---
Test Reason : Blood Pressure : / mmHG Vent. Rate : 073 BPM Atrial Rate : 073 BPM P-R Int : 156 ms QRS Dur : 088 ms QT Int : 396 ms P-R-T Axes : 057 001 059 degrees QTc Int : 436 ms Sinus rhythm with Premature supraventricular complexes Otherwise normal ECG Confirmed by SONIA LOPEZ, SABAS ([id number]), purchasing expeditor CHRISTIN SRIVASTAVA ([id number]) on 05/29/2022 9:38:35 AM Referred By: Confirmed By:DANIEL SCOTT MD
--- NOTE | 2022-05-26 16:02 | EX.ED.DYSGE1 ---
HPI <MICHELA Knight - Last Filed: 05/26/22 18:05> History of Present Illness Chief Complaint: Lower Extremity Injury Narrative Narrative: 76-year-old male with history of PTSD, CAD, hypertension hyperlipidemia presents to the emergency department with 1 week of right lower back pain, pain down the right leg. Patient was seen here in the emergency department on May 20, patient was given hydrocodone, Flexeril and Medrol Dosepak, patient had limited relief to his back, right leg however patient did began to have visual hallucinations. Per the , she called the doctor, the patient was taken off the hydrocodone, prednisone and was switched to Percocet. The hallucinations persisted, last evening, the patient was on his hands and knees looking at bugs, the stated that there were none there. Patient is still having pain to the right leg, negative for any bowel or bladder incontinence negative for any weakness, negative for any fever or chills. PFSH <MICHELA Knight - Last Filed: 05/26/22 18:05> [facility] Medical History (Updated 05/26/22 @ 18:05 by MICHELA Knight) Anxiety Arthritis Atherosclerotic heart disease of [place] coronary artery without angina pectoris Back pain Chronic cough COPD (chronic obstructive pulmonary disease) Depression Essential (primary) hypertension Former smoker History of colon polyps History of non-ST elevation myocardial infarction (NSTEMI) (08/2016) Hyperlipidemia Leg cramps Non-rheumatic aortic stenosis Shortness of breath on exertion Thoracic aortic aneurysm (TAA) Wears dentures Wears glasses Wears hearing aid Home Medications aspirin 81 mg chewable tablet 81 mg PO DAILY@0800 09/04/16 [Rx Last Taken Unknown] tiotropium bromide 2.5 mcg/actuation mist for inhalation (Spiriva Respimat) 2 inh inhalation QAM 04/19/21 [History Last Taken Unknown] lisinopril 20 mg tablet 20 mg PO QDAY #90 tabs 08/12/21 [Rx Last Taken Unknown] pantoprazole 40 mg tablet,delayed release 40 mg PO DAILY 03/13/22 [History Last Taken Unknown] paroxetine HCl 20 mg tablet 20 mg PO DAILY 03/13/22 [History Last Taken Unknown] potassium 99 mg tablet 99 mg PO DAILY 03/29/22 [History Last Taken Unknown] hydrochlorothiazide 25 mg tablet 25 mg PO DAILY #90 tabs 04/17/22 [Rx Last Taken Unknown] atorvastatin 40 mg tablet 40 mg PO QHS 04/20/22 [History Last Taken Unknown] cyclobenzaprine 10 mg tablet 10 mg PO TID PRN Muscle Spasm #20 TABLETS 05/20/22 [Rx Last Taken Unknown] hydrocodone-acetaminophen 5-325mg 5mg-325mg 1 tab PO Q4H PRN PRN Pain 3 days #15 TABLETS 05/20/22 [Rx Last Taken Unknown] methylprednisolone 4 mg tablets in a dose pack (Medrol (Anuel)) 4 mg PO DAILY #21 tabs 05/20/22 [Rx Last Taken Unknown] Allergy/AdvReac Type Severity Reaction Status Date / Time acetaminophen [From [place]] AdvReac Hallucinati Verified 05/26/22 15:01 ons hydrocodone [From [place]] AdvReac Hallucinati Verified 05/26/22 15:01 ons oxycodone AdvReac Hallucinati Verified 05/26/22 15:01 ons prednisone AdvReac Other Verified 05/26/22 15:01 Family History Father CAD (coronary artery disease) Brother CAD (coronary artery disease) Surgical History H/O coronary artery bypass surgery (10/11/16) History of aortic valve replacement (10/11/16) History of left heart catheterization (09/02/16) Hx of colonoscopy Hx of surgical procedure Social History Smoking Status: Former smoker alcohol intake: never caffeine: Yes Type: coffee Number of servings: 3 ROS <MICHELA Knight - Last Filed: 05/26/22 18:05> ROS ED ROS Narrative Constitutional: Negative for fever, chills, weight loss, weakness Eyes: Negative for vision loss, vision change, double vision ENT: Negative for any sore throat, ear pain, congestion Cardiovascular: Negative for any chest pain, tightness, palpitations Respiratory: Negative for any cough, sputum production, hemoptysis, dyspnea, dyspnea on exertion, orthopnea Gastrointestinal: Negative for any abdominal pain, nausea, vomiting, diarrhea, constipation, blood in stool, blood in vomit : Negative for any urinary frequency, dysuria, retention, blood in urine Muscle skeletal: Negative for any muscle joint pain, stiffness, myalgias, arthralgias, neck pain. Positive back pain that rates on the right leg Neurological: Negative for any headache, syncope, numbness or tingling, dizziness. Positive for visual hallucinations Skin: Negative for any rashes, lumps, itching, abrasions, lacerations Psychiatric: Negative for any depression, anxiety, stress, suicidal ideation, homicidal ideation Hematologic: Negative for any easy bruising, excessive bruising, easy bleeding Allergies: Negative for any eczema, hives, rash EXAM <MICHELA Knight - Last Filed: 05/26/22 18:05> Physical Exam Narrative Exam Narrative: Vital signs reviewed. HEET: Head normocephalic atraumatic, TMs clear bilaterally. Posterior pharynx is clear, moist mucous membranes. Nares clear bilaterally. Pupils are equal round reactive to light Neck: Supple with no lymphadenopathy or tenderness. No signs of meningismus, negative jolt sign. Cardiac: Regular rate and rhythm no murmurs gallops or rubs, equal peripheral pulses bilaterally. Respiratory: Lungs clear to auscultation bilaterally. No chest tenderness. Abdomen: Soft, nontender, nondistended. No abdominal bruit or pulsatile masses. No hepatosplenomegaly Extremities: No peripheral edema, no signs of gross trauma or deformity. Active full range of motion of all extremities. Neuro: Cranial nerves II through XII intact, no focal neurological deficits. Skin: Clean dry and intact with no rash, purpura, petechiae, vesicles or pustules. Backs/flank: No CVA tenderness, no midline spinal tenderness, no deformity. Patient is a positive straight leg test, patient physical examination yields no red flag signs. Patient has no saddle paresthesia. Patient is full range of motion of the right leg. +2 pedal pulse. Psych: Normal mood and affect. No SI, HI or acute psychosis. Const Vital Signs: 05/26/22 15:02 Temperature 97.2 F L Temperature Source Temporal Pulse Rate 88 Respiratory Rate 18 Blood Pressure 105/78 Blood Pressure Mean 87 Pulse Ox 97 Oxygen Delivery Method Room Air <Dr. Seun Pack DO - Last Filed: 05/26/22 18:44> Physical Exam Const Vital Signs: 05/26/22 15:02 Temperature 97.2 F L Temperature Source Temporal Pulse Rate 88 Respiratory Rate 18 Blood Pressure 105/78 Blood Pressure Mean 87 Pulse Ox 97 Oxygen Delivery Method Room Air [facility] <MICHELA Knight - Last Filed: 05/26/22 18:05> [facility] Lab Data Labs: Laboratory Results - last 24 hr 05/26/22 05/26/22 05/26/22 16:00 16:00 17:20 WBC 7.5 RBC 4.22 L Hgb 13.1 Hct 39.2 L MCV 92.9 MCH 31.0 MCHC 33.4 RDW Std Deviation 42.8 RDW Coeff of [place]lyss[place] 12.6 Plt Count 157 MPV 9.4 Immature Gran % (Auto) 0.400 Neut % (Auto) 60.1 Lymph % (Auto) 22.8 [place] % (Auto) 9.9 Eos % (Auto) 6.3 H Baso % (Auto) 0.5 Absolute Neuts (auto) 4.5 Absolute Lymphs (auto) 1.70 Nucleated RBC % 0 Sodium 140 Potassium 3.6 Chloride 106 Carbon Dioxide 28.0 Anion Gap 6 BUN 32 H Creatinine 1.34 H Estim Creat Clear Calc 49.18 Est GFR (MDRD) Af Amer 67 Est GFR (MDRD) Non-Af 55 L BUN/Creatinine Ratio 23.9 H Glucose 112 H Calcium 9.1 Urine Color Yellow Urine Clarity Clear Urine pH 6.5 Ur Specific [place] 1.020 Urine Protein Negative Urine Glucose (UA) Normal Urine Ketones Negative Urine Occult Blood Negative Urine Nitrite Negative Urine Bilirubin Negative Urine Urobilinogen 1 H Ur Leukocyte Esterase Negative Urine RBC 0 SEEN Urine WBC 0 SEEN Ur Squamous Epith Cells 0-5 SEEN Urine Bacteria 0 SEEN Urine Mucus 0 SEEN Radiography Diagnostic Testing: Clinical Impression(s) from Imaging Studies Brain CT 05/26/22 15:49 IMPRESSION: No acute intracranial or calvarial abnormality. Electronically Signed: José Miguel Smith DO at 17:03 EDT Reading Location ID and State: [facility] / [place] Tel [phone], Service support , Lumbar Spine CT 05/26/22 15:49 IMPRESSION: Mild degenerative change lumbar spine with dextroscoliosis. Electronically Signed: José Miguel Smith DO at 17:06 EDT Reading Location ID and State: [address] [place] [address] Tel [phone], Service support , Treatment and Re-Evaluation Narrative: Patient appears to be in no distress, patient is alert and orient x4, patient presents emerged part with hallucinations, as well as right lower back pain rating down the right leg. Patient does have hallucinations here, states he is seeing spider webs, things hanging from the ceiling as well as the curtain, he feels that he can feel them however he does not see them when they are in his hands. Patient received basic laboratory values. Patient CBC was unremarkable, patient's chemistries show slight renal dysfunction with a creatinine of 1.3, GFR 55, patient's urinalysis was negative for any infection. Patient did receive a CT scan of the brain this showed no acute intracranial abnormality. Patient did receive a CT of the lumbar spine, this showed some mild degenerative change in lumbar spine with dextroscoliosis. No discitis, patient's physical examination was negative for any cauda equina, negative for any saddle paresthesia, bowel or bladder incontinence. I do believe the patient's hallucinations is coming from the Flexeril, however could be coming from the Percocet, hydrocodone, steroids. Due to the patient's age, altered mental status, continuing to chart picker bugs on the floor and continuing to see bugs in the room, I believe the patient will need admitted to the hospital. The patient will then be able to have a pain control plan. Patient will be admitted to hospitalist, patient is agreeable with the plan is stable for discharge. <Dr. Seun Pack, DO - Last Filed: 05/26/22 18:44> [facility] Lab Data Attestation: I reviewed the patient's lab results. Labs: Laboratory Results - last 24 hr 05/26/22 05/26/22 05/26/22 16:00 16:00 17:20 WBC 7.5 RBC 4.22 L Hgb 13.1 Hct 39.2 L MCV 92.9 MCH 31.0 MCHC 33.4 RDW Std Deviation 42.8 RDW Coeff of [place]lyssa 12.6 Plt Count 157 MPV 9.4 Immature Gran % (Auto) 0.400 Neut % (Auto) 60.1 Lymph % (Auto) 22.8 [place] % (Auto) 9.9 Eos % (Auto) 6.3 H Baso % (Auto) 0.5 Absolute Neuts (auto) 4.5 Absolute Lymphs (auto) 1.70 Nucleated RBC % 0 Sodium 140 Potassium 3.6 Chloride 106 Carbon Dioxide 28.0 Anion Gap 6 BUN 32 H Creatinine 1.34 H Estim Creat Clear Calc 49.18 Est GFR (MDRD) Af Amer 67 Est GFR (MDRD) Non-Af 55 L BUN/Creatinine Ratio 23.9 H Glucose 112 H Calcium 9.1 Urine Color Yellow Urine Clarity Clear Urine pH 6.5 Ur Specific [place] 1.020 Urine Protein Negative Urine Glucose (UA) Normal Urine Ketones Negative Urine Occult Blood Negative Urine Nitrite Negative Urine Bilirubin Negative Urine Urobilinogen 1 H Ur Leukocyte Esterase Negative Urine RBC 0 SEEN Urine WBC 0 SEEN Ur Squamous Epith Cells 0-5 SEEN Urine Bacteria 0 SEEN Urine Mucus 0 SEEN Radiography Diagnostic Testing: Clinical Impression(s) from Imaging Studies Brain CT 05/26/22 15:49 IMPRESSION: No acute intracranial or calvarial abnormality. Electronically Signed: José Miguel ChuDO michael at 17:03 EDT Reading Location ID and State: [address] [place] [address] Tel [phone], Service support , Lumbar Spine CT 05/26/22 15:49 IMPRESSION: Mild degenerative change lumbar spine with dextroscoliosis. Electronically Signed: José Miguel Smith DO at 17:06 EDT Reading Location ID and State: [address] [place] [address] Tel [phone], Service support , Treatment and Re-Evaluation Narrative: Patient appears to be in no distress, patient is alert and orient x4, patient presents emerged part with hallucinations, as well as right lower back pain rating down the right leg. Patient does have hallucinations here, states he is seeing spider webs, things hanging from the ceiling as well as the curtain, he feels that he can feel them however he does not see them when they are in his hands. Patient received basic laboratory values. Patient CBC was unremarkable, patient's chemistries show slight renal dysfunction with a creatinine of 1.3, GFR 55, patient's urinalysis was negative for any infection. Patient did receive a CT scan of the brain this showed no acute intracranial abnormality. Patient did receive a CT of the lumbar spine, this showed some mild degenerative change in lumbar spine with dextroscoliosis. No discitis, patient's physical examination was negative for any cauda equina, negative for any saddle paresthesia, bowel or bladder incontinence. I do believe the patient's hallucinations is coming from the Flexeril, however could be coming from the Percocet, hydrocodone, steroids. Due to the patient's age, altered mental status, continuing to chart picker bugs on the floor and continuing to see bugs in the room, I believe the patient will need admitted to the hospital. The patient will then be able to have a pain control plan. Patient will be admitted to hospitalist, patient is agreeable with the plan is stable for admission. I performed a history and physical examination of the patient and discussed management plan with the physician assistant golf professional. I reviewed the physician assistant golf professional's note and agree with the documented findings and plan of care. Patient with lumbar radiculopathy. He was prescribed Flexeril and [place] and Medrol. He became confused on these medicines and was recommended that he stop the [place] that is prescribed oxycodone) continue to take the Flexeril and continues to have altered mental status. There is no of emergent MRI at this time. Seun Pack DO, MS Discharge Plan Dx/Rx/DC Orders Clinical Impression: Hallucination, drug-induced, Sciatica, Intractable back pain Disposition Disposition: Acute Care Hospital [facility]
[2022-05-26 16:10] LABS: Absolute Neutrophil Count 4.5 X10^3/uL (2.0-7.7); Basophil# 0.04 X10^3/uL; Basophil% 0.5 % (0-1); Eosinophil# 0.47 X10^3/uL; Eosinophils% 6.3 % (0-5); Hematocrit 39.2 % (40-54); Hemoglobin 13.1 g/dL (13.0-16.5); Lymphocyte % 22.8 % (19-41); Mean Corp Hgb Conc 33.4 g/dL (32-36); Mean Corpuscular Volume 92.9 fL (80-94); Mean Platelet Vol. 9.4 fl (6.2-12.0); Monocyte# 0.74 X10^3/uL; Monocyte% 9.9 % (0-10); NRBC Flagged by Analyzer 0 % (0-5); Neutrophil # 4.47 X10^3/uL (2.7-7.7); Neutrophil % 60.1 % (47-70); Platelet Count 157 K/mm3 (150-450); RBC Distribution Width CV 12.6 % (11.6-14.6); RBC Distribution Width SD 42.8 fl (35.1-43.9); Red Blood Count 4.22 M/mm3 (4.6-6.2); White Blood Count 7.5 K/mm3 (4.4-11.0)
[2022-05-26 16:23] LABS: Anion Gap 6 (5-15); BUN 32 mg/dL (7-18); BUN/Creat Ratio 23.9 RATIO (10-20); Calcium,Total 9.1 mg/dL (8.5-10.1); Chloride 106 mmol/L (98-107); Creatinine, Serum 1.34 mg/dL (0.70-1.30); EST Glomerular Filtration Rate 55 mL/min (>60); Est Glom Filt Rate - Afr Amer 67 mL/min (>60); Estimated Creatinine Clearance 49.18 ml/min; Glucose 112 mg/dL (74-106); Potassium 3.6 mmol/L (3.5-5.1); Sodium Level 140 mmol/L (136-145)
[2022-05-26 17:00] VITALS: BP 110/80; PULSE 75; RESP 18; O2SAT 97
--- NOTE | 2022-05-26 17:28 | HP.PCM.HOS_ITS ---
HPI - General General Date of Admission: 05/26/22 Date of Service: 05/26/22 Chief Complaint: hallucinations, right lower back pain HPI Narrative PURA VEGA, is a 76 M with a PMH as outlined who presents via the ED on 05/26/2022 with a complaint of RLE and back pain as well as hallucinations. He had presented about a week ago with right lower back pain which radiated down his right leg. He was given hydrocodone, Flexeril and Medrol Dosepak in the ED at that time and discharged home. However according to the patient did not have much improvement with his pain but subsequently started having visual hallucinations. She called his PCP and he was taken off the prednisone and hydrocodone and switch to Percocet. However hallucinations persisted and so she brought him into the ED. He still complains of pain to the right lower extremity and right back and the back pain radiates down the back of his right leg. He says he is able to ambulate but gets tired because of the pain. He denies any fever, any chills, any nausea vomiting or any other symptoms. He denies any numbness or tingling or any bladder or bowel incontinence. Review of systems otherwise negative. Vitals in the ED were BP of 117/82, pulse rate of 70 and respiratory rate of 18 breaths/min. He was saturating at 97% on room air and temperature was 98.1 Fahrenheit. CBC was unremarkable and BMP was remarkable only for creatinine of 1.34. Urinalysis was negative for any evidence of UTI. Lumbar spine CT showed mild degenerative changes of the lumbar spine with dextroscoliosis and CT of the brain done on account of hallucination showed no acute intracranial calvarial abnormality. He has been admitted to be managed for debility due to right lower extremity pain which is likely due to sciatica from lumbar spinal stenosis as well as visual hallucinations which is likely a side effect of the opiates and prednisone he has been taking. [facility] Medical History (Updated 05/26/22 @ 19:[address] Alison Michael MD) Anxiety Arthritis Atherosclerotic heart disease of [place] coronary artery without angina pectoris Back pain Chronic cough COPD (chronic obstructive pulmonary disease) Depression Essential (primary) hypertension Former smoker History of colon polyps History of non-ST elevation myocardial infarction (NSTEMI) (08/2016) Hyperlipidemia Leg cramps Non-rheumatic aortic stenosis Shortness of breath on exertion Thoracic aortic aneurysm (TAA) Wears dentures Wears glasses Wears hearing aid Home Medications aspirin 81 mg chewable tablet 81 mg PO DAILY@0800 09/04/16 [Rx Last Taken Unknown] tiotropium bromide 2.5 mcg/actuation mist for inhalation (Spiriva Respimat) 2 inh inhalation QAM 04/19/21 [History Last Taken Unknown] lisinopril 20 mg tablet 20 mg PO QDAY #90 tabs 08/12/21 [Rx Last Taken Unknown] pantoprazole 40 mg tablet,delayed release 40 mg PO DAILY 03/13/22 [History Last Taken Unknown] paroxetine HCl 20 mg tablet 20 mg PO DAILY 03/13/22 [History Last Taken Unknown] potassium 99 mg tablet 99 mg PO DAILY 03/29/22 [History Last Taken Unknown] hydrochlorothiazide 25 mg tablet 25 mg PO DAILY #90 tabs 04/17/22 [Rx Last Taken Unknown] atorvastatin 40 mg tablet 40 mg PO QHS 04/20/22 [History Last Taken Unknown] cyclobenzaprine 10 mg tablet 10 mg PO TID PRN Muscle Spasm #20 TABLETS 05/20/22 [Rx Last Taken Unknown] hydrocodone-acetaminophen 5-325mg 5mg-325mg 1 tab PO Q4H PRN PRN Pain 3 days #15 TABLETS 05/20/22 [Rx Last Taken Unknown] methylprednisolone 4 mg tablets in a dose pack (Medrol (Anuel)) 4 mg PO DAILY #21 tabs 05/20/22 [Rx Last Taken Unknown] Allergy/AdvReac Type Severity Reaction Status Date / Time acetaminophen [From [place]] AdvReac Hallucinati Verified 05/26/22 15:01 ons hydrocodone [From [place]] AdvReac Hallucinati Verified 05/26/22 15:01 ons oxycodone AdvReac Hallucinati Verified 05/26/22 15:01 ons prednisone AdvReac Other Verified 05/26/22 15:01 Family History Father CAD (coronary artery disease) Brother CAD (coronary artery disease) Surgical History H/O coronary artery bypass surgery (10/11/16) History of aortic valve replacement (10/11/16) History of left heart catheterization (09/02/16) Hx of colonoscopy Hx of surgical procedure Social History Smoking Status: Former smoker alcohol intake: never caffeine: Yes Type: coffee Number of servings: 3 ROS Constitutional Constitutional: Denies anorexia, chills, fatigue, malaise or weakness Eyes Eyes: Denies blurry vision or change in vision ENT HEENT: Denies dysphagia Cardiovascular Cardiovascular: Denies chest pain, dyspnea on exertion, edema, lightheadedness, orthopnea, palpitations, paroxysmal nocturnal dyspnea, rapid heart rate or syncope Respiratory/Chest Respiratory/Chest: Denies cough, dyspnea, productive cough, shortness of breath at rest or shortness of breath with exertion Gastrointestinal Gastrointestinal: Denies abdominal pain, constipation, diarrhea, nausea or vomiting Genitourinary Genitourinary: Denies dysuria Musculoskeletal Musculoskeletal: Reports back pain; Denies arthralgias, joint pain, joint stiffness, joint swelling, myalgias or neck pain Neurologic Neurologic: Reports confusion and other Details: visual hallucinations ; Denies disequilibrium, dizziness, focal weakness, headache(s), numbness, seizure-like activity, seizures or syncope Psychiatric Psychiatric: Denies anxiety or depression Hematologic/Lymphatic Hematologic/Lymphatic: Denies anemia Vital Signs Vital Signs Vital Signs: 05/26/22 15:02 Temperature 97.2 F L Temperature Source Temporal Pulse Rate 88 Respiratory Rate 18 Blood Pressure 105/78 Blood Pressure Mean 87 Pulse Ox 97 Oxygen Delivery Method Room Air Weight Weight: 190 lb Body Mass Index (BMI) 27.2 Physical Exam Const alert, oriented x3 and no apparent distress General Appearance: cooperative HEENT normocephalic, head/scalp atraumatic, hearing grossly normal bilaterally and moist oral mucous membranes Mouth: oral and palatal mucosa normal Eyes PERRL, EOMs intact bilaterally and conjunctivae normal Neck no lymphadenopathy, supple and no JVD Resp normal respiratory effort, no retractions, no use of accessory muscles and clear to auscultation bilaterally Cardio regular rate, regular rhythm, S1 normal heart sound, S2 normal heart sound and no murmurs GI normal to inspection, nondistended, normoactive bowel sounds, soft to palpation, non-tender and non-distended Extremity normal to inspection and no clubbing, cyanosis or edema Neuro oriented x3, CN's II-XII intact bilaterally and moves all extremities Neuro Narrative: positive straight leg raising test of RLE Sensorium / Orientation: awake and alert Psych affect normal Results Lab / Micro Data Result Diagrams: 05/26/22 16:00 05/26/22 16:00 Labs: Laboratory Results - last 24 hr 05/26/22 16:00: WBC 7.5, RBC 4.22 L, Hgb 13.1, Hct 39.2 L, MCV 92.9, MCH 31.0, MCHC 33.4, RDW Std Deviation 42.8, RDW Coeff of Alyssa 12.6, Plt Count 157, MPV 9.4, Immature Gran % (Auto) 0.400, Neut % (Auto) 60.1, Lymph % (Auto) 22.8, [place] % (Auto) 9.9, Eos % (Auto) 6.3 H, Baso % (Auto) 0.5, Absolute Neuts (auto) 4.5, Absolute Lymphs (auto) 1.70, Nucleated RBC % 0 05/26/22 16:00: Sodium 140, Potassium 3.6, Chloride 106, Carbon Dioxide 28.0, Anion Gap 6, BUN 32 H, Creatinine 1.34 H, Estim Creat Clear Calc 49.18, Est GFR (MDRD) Af Amer 67, Est GFR (MDRD) Non-Af 55 L, BUN/Creatinine Ratio 23.9 H, Glucose 112 H, Calcium 9.[address] 05/26/22 15:49 IMPRESSION: No acute intracranial or calvarial abnormality. Electronically Signed: José Miguel Smith DO at 17:03 EDT Reading Location ID and State: [facility] / [place] Tel [phone], Service support , Lumbar Spine CT 05/26/22 15:49 IMPRESSION: Mild degenerative change lumbar spine with dextroscoliosis. Electronically Signed: José Miguel Smith DO at 17:06 EDT Reading Location ID and State: [facility] / [place] Tel [phone], Service support , Assessment & Plan Assessment/Plan (1) Sciatica: (2) Hallucination, drug-induced: (3) Lumbar stenosis: PLAN: Plan #Back and RLE pain due to sciatica and lumbar spinal stenosis * Admit to [facility] * Lumbar spine CT showed no degenerative changes of the lumbar spine with dextroscoliosis * He had positive straight leg raising test of the right lower extremity. * Consult PT OT * Fall precautions. * Give p.o. Tylenol and p.o. ibuprofen. Patient does not want any opiates so cannot give morphine or oxycodone or any other opiates * Will get MRI of the lumbar spine with and without contrast to evaluate spinal stenosis better. * #Visual hallucinations * Likely due to polypharmacy. Patient was on prednisone, flexeril, and opiates and the synergistic effects likely resulted in this confusion and visual sensations. * Opiates discontinued as well as prednisone and Flexeril * will monitor for now * #CAD s/p CABG * Had CABG in 2017 * On aspirin and high intensity statin * #History of nonrheumatic aortic valve stenosis: S/p aortic valve replacement in October 2016 #Hypertension: On hydrochlorothiazide and lisinopril #Hyperlipidemia: On statin #COPD: On tiotropium inhaler. Breathing treatments bronchodilators. DVT prophylaxis: lovenox Code status: full code * Patient and counseled extensively about different types of CODE STATUS including full code, DNR CCA and DNR CCA. Patient elects to be full code. * Total [id number] time 17 minutes. Charges/Coding Visit Charges OBSV E&M: 61390 Initial observation care L3 Procedures Hospitalists Procedures: 79732 Advncd Care Plan 30 Min
[2022-05-26 17:30] LABS: Bacteria 0 SEEN /hpf (None Seen); Mucous, Urine 0 SEEN /hpf (<or=2+); Red Blood Cells-Urine 0 SEEN /hpf (0-5); White Blood Cells 0 SEEN /hpf (0-5)
[2022-05-26 17:36] LABS: Color, Urine Yellow (Yellow); Glucose, Dipstick Normal (Normal); Ketone-Dipstick Negative (Negative); Leukocyte Esterase-Dipstick Negative /ul (Negative); Nitrite-Dipstick Negative (Negative); Occult Blood-Urine Negative /ul (Negative); Protein-Dipstick Negative (Negative); Urine Bilirubin Dipstick Negative (Negative); Urine Clarity Clear (Clear); Urine Urobilinogen 1 mg/dl (Normal); Urine pH 6.5 (5.0 - 8.0)
[2022-05-26 18:07] LABS: Squamous Epithelial Cells - UA 0-5 SEEN /hpf (0-5)
[2022-05-26 18:53] VITALS: BP 117/82; PULSE 70; RESP 18; TEMP 36.7; O2SAT 97
[2022-05-26 20:01] VITALS: BMI 27.2
[2022-05-26 20:17] VITALS: BP 138/87; PULSE 64; RESP 16; TEMP 36.6; O2SAT 99
[2022-05-26] MEDS: Acetaminophen 325 MG Tablet 650 MG PO (20:27)
[2022-05-26] MEDS: Atorvastatin Calcium 40 MG Tablet PO (21:31)
[2022-05-27] MEDS: Acetaminophen 325 MG Tablet 650 MG PO ×3 (02:49→20:54)
[2022-05-27 03:17] VITALS: BP 157/97; PULSE 65; RESP 16; TEMP 36.4; O2SAT 98
--- NOTE | 2022-05-27 05:55 | MRI_ITS ---
STUDY: MRI LUMBAR SPINE WITHOUT CONTRAST REASON FOR EXAM: Male, 76 years old. spinal stenosis, right leg pain TECHNIQUE: Standardized fat and water weighted pulse sequences were obtained in the sagittal and axial planes. COMPARISON: None FINDINGS: T12-L1: Moderate disc desiccation. Normal lumbar lordosis. There is no substantial scoliosis. Normal conus medullaris that terminates at the L1-2: Moderate disc desiccation, mild disc bulging, mild bilateral facet arthropathy, mild bilateral neural foraminal encroachment. L2-3: Moderate disc desiccation, mild disc bulging, moderate bilateral facet arthropathy, moderate bilateral neural foraminal encroachment. L3-4: Moderate disc desiccation and loss of disc space height, mild disc bulging, moderate bilateral facet arthropathy, moderate left intraforaminal disc herniation, severe left and moderate right neural foraminal encroachment. L4-5: Moderate disc desiccation, moderate loss of disc space height, mild disc bulging, moderate bilateral facet arthropathy, severe bilateral neural foraminal encroachment. L5-S1: Moderate disc desiccation, mild loss of disc space height, mild disc bulging, moderate bilateral facet arthropathy, moderate right intraforaminal disc herniation, moderate left and severe right-sided neural foraminal encroachment. Normal visualized sacral ala. Normal visualized paraspinous soft tissue structures. MRI/Spine Lumbar (Routine) IMPRESSION: Moderate right intraforaminal disc herniation L5-S1. Moderate left intraforaminal disc herniation L3-4. Mild disc bulging throughout the lumbar spine. Multilevel degenerative disc disease, facet arthropathy and neural foraminal encroachment as above. Electronically Signed: Matias Allen MD, TRUPTI at 12:04 EDT ,
[2022-05-27 07:18] VITALS: PULSE 68; RESP 16; O2SAT 94
[2022-05-27] MEDS: Ipratropium 0.5 MG/2.5 ML SOLUTION INHALATION ×2 (07:18→14:03)
[2022-05-27 07:51] LABS: Absolute Lymphocyte Count 1.79 X10^3/uL (0.83-4.51); Absolute Neutrophil Count 4.7 X10^3/uL (2.0-7.7); Basophil# 0.03 X10^3/uL; Basophil% 0.4 % (0-1); Eosinophils% 7.7 % (0-5); Hematocrit 37.2 % (40-54); Hemoglobin 12.5 g/dL (13.0-16.5); Lymphocyte # 1.79 X10^3/ul (0.83-4.51); Lymphocyte % 22.8 % (19-41); Mean Corp Hgb Conc 33.6 g/dL (32-36); Mean Corpuscular Hgb 31.3 pg (27.0-32.0); Mean Platelet Vol. 10.1 fl (6.2-12.0); Monocyte# 0.67 X10^3/uL; Monocyte% 8.5 % (0-10); NRBC Flagged by Analyzer 0 % (0-5); Neutrophil # 4.71 X10^3/uL (2.7-7.7); Neutrophil % 60.1 % (47-70); Platelet Count 148 K/mm3 (150-450); RBC Distribution Width CV 12.4 % (11.6-14.6); RBC Distribution Width SD 42.6 fl (35.1-43.9); White Blood Count 7.8 K/mm3 (4.4-11.0)
[2022-05-27 08:05] LABS: Anion Gap 4 (5-15); BUN 32 mg/dL (7-18); BUN/Creat Ratio 28.6 RATIO (10-20); Calcium,Total 8.9 mg/dL (8.5-10.1); Chloride 108 mmol/L (98-107); Creatinine, Serum 1.12 mg/dL (0.70-1.30); EST Glomerular Filtration Rate 68 mL/min (>60); Est Glom Filt Rate - Afr Amer 82 mL/min (>60); Estimated Creatinine Clearance 58.84 ml/min; Glucose 109 mg/dL (74-106); Sodium Level 141 mmol/L (136-145)
[2022-05-27 08:49] VITALS: BP 140/83; PULSE 65; RESP 18; TEMP 36.6; O2SAT 98
[2022-05-27] MEDS: Paroxetine 20 MG Tablet PO (09:02)
[2022-05-27] MEDS: Lisinopril 20 MG Tablet PO (09:02)
[2022-05-27] MEDS: Pantoprazole Sodium 40 MG Tablet PO (09:03)
[2022-05-27] MEDS: Aspirin 81 MG TAB.CHEW PO (09:03)
[2022-05-27] MEDS: hydroCHLOROthiazide 25 MG Tablet PO (09:03)
[2022-05-27] MEDS: Enoxaparin 40 MG/0.4 ML Syringe SC (09:03)
[2022-05-27] MEDS: Ibuprofen 400 MG Tablet PO ×2 (09:03→17:46)
[2022-05-27] MEDS: Potassium Chloride Oral Tablet 10 MEQ PO (09:03)
--- NOTE | 2022-05-27 09:10 | NURSING ---
verified per MRI request: pt states past experience with MRI was awful, it was dark and i wanted to get up and run out, it scared me. states he is unsure if he was able to complete MRI. states he does not have any shrapnel nor bullets in his body.
--- NOTE | 2022-05-27 09:47 | PN.HOSP_ITS ---
Subjective Subjective Patient seen and examined. was by his bedside. Patient is still having significant pain in his RLE; pain is certainly not well controlled. He is currently on tylenol and ibuprofen. Patient and his again today refused to let him take any other pain meds such as opiates or even steroids or muscle relaxants because many people had told them not to take it. I enquired who the many people were, and they said he had 2 daughters in law who were nurses in [facility] and another relative who was a medic at the [employer]; they had all told him he should not take any opiates, steroids or muscle relaxants. I tried to limit patient and his that his pain was not well controlled on the Tylenol and ibuprofen, and that he had had hallucinations previously because he had been placed on muscle relaxants, opiates and steroids all at the same time. As such I felt a low dose opiate such as 5 mg of oxycodone every 6 hours as needed would be beneficial for breakthrough pain. Patient's was adamant that she did not want him to have the medication and stated that she had to be okay with the medication before patient took it. I explained to patient's that the decision about taking the medication would ultimately live with the patient because he was alert and oriented and could make decisions for himself. Patient's got angry at this point and stormed out of the room. Patient did express understanding of my point about adding on a low-dose opiate for breakthrough pain and said he was willing to try that to get his pain better controlled. I explained to patient that if his pain was still not controlled on this, I would get a pain management consult on Sunday for a steroid shot; I did remind patient that his had also refused to allow him to have a steroid shot but I did think it was worth a try if his pain remained persistent. I explained to patient that I would be willing to call his daughter son-in-law who works in the hospital as nurses to explain to them my medical reasoning for suggesting low-dose opiates as an adjunct to his pain regimen so that would all be on the same page about the medical plan. Patient was in agreement and requested that we call his [id number] Joann. Patient did not have Joann's phone number and stated that his had the phone number. Medical team asked for Joann's phone number from patient's but she refused to giv e us the number. Objective Data Objective Data Vital Signs: Vital Signs Temp Pulse Resp BP Pulse Ox O2 Del Method 97.9 F 65 18 140/83 H 98 Room Air 05/27/22 08:49 05/27/22 08:49 05/27/22 08:49 05/27/22 08:49 05/27/22 08:49 05/27/22 08:49 Oxygen Delivery Method Room Air Weight: 190 lb 7.67 oz Body Mass Index (BMI) 27.2 Intake & Output: Intake and Output for Last 24 Hours 05/25/22 05/26/22 05/27/22 23:59 23:59 23:59 Intake Total 500 / 500 Output Total 300 / 300 Balance 500 / 500 -300 / -300 Lab / Micro Data Result Diagrams: 05/27/22 07:05 05/27/22 07:05 Labs: Laboratory Results - last 24 hr 05/26/22 16:00: WBC 7.5, RBC 4.22 L, Hgb 13.1, Hct 39.2 L, MCV 92.9, MCH 31.0, MCHC 33.4, RDW Std Deviation 42.8, RDW Coeff of Alyssa 12.6, Plt Count 157, MPV 9.4, Immature Gran % (Auto) 0.400, Neut % (Auto) 60.1, Lymph % (Auto) 22.8, [place] % (Auto) 9.9, Eos % (Auto) 6.3 H, Baso % (Auto) 0.5, Absolute Neuts (auto) 4.5, Absolute Lymphs (auto) 1.70, Nucleated RBC % 0 05/26/22 16:00: Sodium 140, Potassium 3.6, Chloride 106, Carbon Dioxide 28.0, Anion Gap 6, BUN 32 H, Creatinine 1.34 H, Estim Creat Clear Calc 49.18, Est GFR (MDRD) Af Amer 67, Est GFR (MDRD) Non-Af 55 L, BUN/Creatinine Ratio 23.9 H, Glucose 112 H, Calcium 9.1 05/26/22 17:20: Urine Color Yellow, Urine Clarity Clear, Urine pH 6.5, Ur Specific [place] 1.020, Urine Protein Negative, Urine Glucose (UA) Normal, Urine Ketones Negative, Urine Occult Blood Negative, Urine Nitrite Negative, Urine Bilirubin Negative, Urine Urobilinogen 1 H, Ur Leukocyte Esterase Negative, Urine RBC 0 SEEN, Urine WBC 0 SEEN, Ur Squamous Epith Cells 0-5 SEEN, Urine Bacteria 0 SEEN, Urine Mucus 0 SEEN 05/27/22 07:05: WBC 7.8, RBC 4.00 L, Hgb 12.5 L, Hct 37.2 L, MCV 93.0, MCH 31.3, MCHC 33.6, RDW Std Deviation 42.6, RDW Coeff of Alyssa 12.4, Plt Count 148 L, MPV 10.1, Immature Gran % (Auto) 0.500, Neut % (Auto) 60.1, Lymph % (Auto) 22.8, [place] % (Auto) 8.5, Eos % (Auto) 7.7 H, Baso % (Auto) 0.4, Absolute Neuts (auto) 4.7, Absolute Lymphs (auto) 1.79, Nucleated RBC % 0 05/27/22 07:05: Sodium 141, Potassium 4.0, Chloride 108 H, Carbon Dioxide 29.0, Anion Gap 4 L, BUN 32 H, Creatinine 1.12, Estim Creat Clear Calc 58.84, Est GFR (MDRD) Af Amer 82, Est GFR (MDRD) Non-Af 68, BUN/Creatinine Ratio 28.6 H, Glucose 109 H, Calcium 8.9 Radiography Diagnostic Testing: Radiology Impression Brain CT 05/26/22 15:49 IMPRESSION: No acute intracranial or calvarial abnormality. Electronically Signed: José Miguel Smith DO at 17:03 EDT Reading Location ID and State: [address] [place] [address] Tel [phone], Service support , ADDENDUM: 05/27/22 0853 IMPRESSION: Mild cortical and central atrophy. Mild chronic microvascular ischemic change. Head CT clear for MRI as there is no evidence of metallic foreign body within the cranial vault. Electronically Signed: Matias Allen MD, TRUPTI at 8:46 EDT Reading Location ID and State: [facility] / [place] Tel , Service support , Lumbar Spine CT 05/26/22 15:49 IMPRESSION: Mild degenerative change lumbar spine with dextroscoliosis. Electronically Signed: José Miguel Smith DO at 17:06 EDT Reading Location ID and State: [address] [place] [address] Tel [phone], Service support , Physical Exam Const alert, oriented x3 and no apparent distress HEENT head/scalp atraumatic and moist oral mucous membranes Head and Scalp: normocephalic Mouth: oral and palatal mucosa normal Eyes PERRL and EOMs intact bilaterally Resp normal respiratory effort, no retractions, no use of accessory muscles and clear to auscultation bilaterally Cardio regular rate, regular rhythm, S1 normal heart sound, S2 normal heart sound and no murmurs GI normal to inspection, nondistended, normoactive bowel sounds, soft to palpation, non-tender and non-distended Extremity normal to inspection, full ROM and no clubbing, cyanosis or edema Neuro oriented x3, CN's II-XII intact bilaterally, moves all extremities and no focal motor deficits Sensorium / Orientation: awake and alert Motor Exam: strength 5/5 throughout Psych affect normal Assessment & Plan Assessment/Plan (1) Sciatica: (2) Hallucination, drug-induced: (3) Lumbar stenosis: PLAN: Plan #Back and RLE pain due to sciatica and lumbar spinal stenosis * pain still not well controlled * on PO tylenol and ibuprofen * Lumbar spine CT showed no degenerative changes of the lumbar spine with dextroscoliosis * He had positive straight leg raising test of the right lower extremity. * PT OT on board * Fall precautions. * patient ok with addition of PO oxycodone 5mg every 6 hours as needed today * MRI of lumbar spine pending * Give p.o. Tylenol and p.o. ibuprofen. Patient does not want any opiates so cannot give morphine or oxycodone or any other opiates * Will get MRI of the lumbar spine with and without contrast to evaluate spinal stenosis better. * #Visual hallucinations * Likely due to polypharmacy. Patient was on prednisone, flexeril, and opiates and the synergistic effects likely resulted in this confusion and visual sensations. * prednisone and flexeril dc'd. low dose opiate started today * visual hallucinations havent recurred * #CAD s/p CABG * Had CABG in 2017 * On aspirin and high intensity statin * #History of nonrheumatic aortic valve stenosis: S/p aortic valve replacement in October 2016 #Hypertension: On hydrochlorothiazide and lisinopril #Hyperlipidemia: On statin #COPD: On tiotropium inhaler. Breathing treatments bronchodilators. DVT prophylaxis: lovenox Code status: full code * Charges/Coding Visit Charges OBSV E&M: 63376 Subsequent observation care L2
[2022-05-27] MEDS: LORazepam 1 MG Tablet PO (10:14)
[2022-05-27] MEDS: oxyCODONE 5 MG Tablet PO (11:42)
[2022-05-27 14:03] VITALS: RESP 16
[2022-05-27 14:48] VITALS: BP 115/76; PULSE 65; RESP 18; TEMP 36.6; O2SAT 97
--- NOTE | 2022-05-27 15:18 | CASEMGMT ---
Per nursing, pt is hallucinating again after having oxycodone. This RN CM to room with SHAH form and is at bedside. SHAH form explained, voices understanding and signs SHAH form. Original to chart and copy to pt. Pt/ voice no further questions/concerns/needs. SStaten RN CM
--- NOTE | 2022-05-27 17:07 | CASEMGMT ---
Social Work As per admiting electronic systems security assessment, Yani Young is pt's medical POA. Forms not on file for LW/POA, pt will bring in. BRENDA Gordon
--- NOTE | 2022-05-27 18:43 | NURSING ---
pt resting in bed. pt initially denies any current visual hallucinations. spouse at bedside and states well tell her about the fog. pt then states well i did see some fog in here earlier. nurse inquired further pt states it was in that grate again above my bed, it had strings and stuff hanging down from it and stuff. i know it isn't real though.
[2022-05-27 20:00] VITALS: BP 136/84; PULSE 66; RESP 16; TEMP 36.6; O2SAT 97
[2022-05-27] MEDS: Atorvastatin Calcium 40 MG Tablet PO (20:54)
[2022-05-28 02:00] VITALS: BP 151/87; PULSE 76; RESP 16; TEMP 36.8; O2SAT 97
[2022-05-28 06:12] LABS: Absolute Neutrophil Count 4.2 X10^3/uL (2.0-7.7); Basophil# 0.05 X10^3/uL; Basophil% 0.7 % (0-1); Eosinophil# 0.55 X10^3/uL; Eosinophils% 7.4 % (0-5); Hematocrit 38.3 % (40-54); Hemoglobin 12.6 g/dL (13.0-16.5); Lymphocyte % 25.4 % (19-41); Mean Corp Hgb Conc 32.9 g/dL (32-36); Mean Corpuscular Hgb 31.1 pg (27.0-32.0); Mean Corpuscular Volume 94.6 fL (80-94); Mean Platelet Vol. 10.1 fl (6.2-12.0); Monocyte# 0.77 X10^3/uL; Monocyte% 10.3 % (0-10); NRBC Flagged by Analyzer 0 % (0-5); Neutrophil # 4.18 X10^3/uL (2.7-7.7); Neutrophil % 55.9 % (47-70); Platelet Count 146 K/mm3 (150-450); RBC Distribution Width CV 12.4 % (11.6-14.6); Red Blood Count 4.05 M/mm3 (4.6-6.2); White Blood Count 7.5 K/mm3 (4.4-11.0)
[2022-05-28 06:34] LABS: Anion Gap 4 (5-15); BUN 28 mg/dL (7-18); BUN/Creat Ratio 20.9 RATIO (10-20); Calcium,Total 8.9 mg/dL (8.5-10.1); Chloride 104 mmol/L (98-107); Creatinine, Serum 1.34 mg/dL (0.70-1.30); EST Glomerular Filtration Rate 55 mL/min (>60); Est Glom Filt Rate - Afr Amer 67 mL/min (>60); Estimated Creatinine Clearance 49.18 ml/min; Glucose 100 mg/dL (74-106); Potassium 4.3 mmol/L (3.5-5.1); Sodium Level 140 mmol/L (136-145)
[2022-05-28 07:06] VITALS: PULSE 68; RESP 16; O2SAT 97
[2022-05-28] MEDS: Ipratropium 0.5 MG/2.5 ML SOLUTION INHALATION ×2 (07:06→13:51)
[2022-05-28 08:00] VITALS: BP 143/85; PULSE 62; RESP 16; TEMP 36.4; O2SAT 96
[2022-05-28] MEDS: hydroCHLOROthiazide 25 MG Tablet PO (08:25)
[2022-05-28] MEDS: Aspirin 81 MG TAB.CHEW PO (08:25)
[2022-05-28] MEDS: Enoxaparin 40 MG/0.4 ML Syringe SC (08:25)
[2022-05-28] MEDS: Lisinopril 20 MG Tablet PO (08:27)
[2022-05-28] MEDS: Paroxetine 20 MG Tablet PO (08:27)
[2022-05-28] MEDS: Pantoprazole Sodium 40 MG Tablet PO (08:27)
[2022-05-28] MEDS: Potassium Chloride Oral Tablet 10 MEQ PO (08:31)
--- NOTE | 2022-05-28 09:43 | PN.HOSP_ITS ---
Subjective Subjective Patient seen and examined. He still complains of aggravating pain in his RLE. He tried the oxycodone yesterday, but started having visual hallucinations, so this was discontinued. Review of systems is otherwise negative. Objective Data Objective Data Vital Signs: Vital Signs Temp Pulse Resp BP Pulse Ox O2 Del Method 97.5 F L 62 16 143/85 H 96 Room Air 05/28/22 08:00 05/28/22 08:00 05/28/22 08:00 05/28/22 08:00 05/28/22 08:00 05/28/22 08:00 Oxygen Delivery Method Room Air Weight: 190 lb 7.67 oz Body Mass Index (BMI) 27.2 Intake & Output: Intake and Output for Last 24 Hours 05/26/22 05/27/22 05/28/22 23:59 23:59 23:59 Intake Total 500 / 500 Output Total 300 / 300 Balance 500 / 500 -300 / -300 Lab / Micro Data Result Diagrams: 05/28/22 05:00 05/28/22 05:00 Labs: Laboratory Results - last 24 hr 05/28/22 05:00: WBC 7.5, RBC 4.05 L, Hgb 12.6 L, Hct 38.3 L, MCV 94.6 H, MCH 31.1, MCHC 32.9, RDW Std Deviation 43.0, RDW Coeff of Alyssa 12.4, Plt Count 146 L, MPV 10.1, Immature Gran % (Auto) 0.300, Neut % (Auto) 55.9, Lymph % (Auto) 25.4, [place] % (Auto) 10.3 H, Eos % (Auto) 7.4 H, Baso % (Auto) 0.7, Absolute Neuts (auto) 4.2, Absolute Lymphs (auto) 1.90, Nucleated RBC % 0 05/28/22 05:00: Sodium 140, Potassium 4.3, Chloride 104, Carbon Dioxide 32.0, Anion Gap 4 L, BUN 28 H, Creatinine 1.34 H, Estim Creat Clear Calc 49.18, Est GFR (MDRD) Af Amer 67, Est GFR (MDRD) Non-Af 55 L, BUN/Creatinine Ratio 20.9 H, Glucose 100, Calcium 8.9 Radiography Diagnostic Testing: Radiology Impression Lumbar Spine MRI 08/27/22 05:55 IMPRESSION: Moderate right intraforaminal disc herniation L5-S1. Moderate left intraforaminal disc herniation L3-4. Mild disc bulging throughout the lumbar spine. Multilevel degenerative disc disease, facet arthropathy and neural foraminal encroachment as above. Electronically Signed: Matias Allen MD, TRUPTI at 12:04 EDT Reading Location ID and State: [facility] / [place] Tel , Service support , Physical Exam Const alert, oriented x3 and no apparent distress General Appearance: cooperative HEENT normocephalic, head/scalp atraumatic, hearing grossly normal bilaterally and moist oral mucous membranes Head and Scalp: normocephalic Mouth: oral and palatal mucosa normal Eyes PERRL, EOMs intact bilaterally and conjunctivae normal Neck no lymphadenopathy, supple and no JVD Resp normal respiratory effort, no retractions, no use of accessory muscles and clear to auscultation bilaterally Cardio regular rate, regular rhythm, S1 normal heart sound, S2 normal heart sound and no murmurs GI normal to inspection, nondistended, normoactive bowel sounds, soft to palpation, non-tender and non-distended Extremity normal to inspection, full ROM and no clubbing, cyanosis or edema Neuro oriented x3, CN's II-XII intact bilaterally, moves all extremities and no focal motor deficits Sensorium / Orientation: awake and alert Motor Exam: strength 5/5 throughout Psych affect normal Assessment & Plan Assessment/Plan (1) Sciatica: (2) Hallucination, drug-induced: (3) Lumbar stenosis: PLAN: Plan #Back and RLE pain due to sciatica and lumbar spinal stenosis * pain still not well controlled * on PO tylenol and ibuprofen * Lumbar spine CT showed no degenerative changes of the lumbar spine with dextroscoliosis * He had positive straight leg raising test of the right lower extremity on admission * PT OT on board * Fall precautions. * oxycodone stopped o/a of patient having hallucinations * MRI of lumbar spine showed moderate right intraforaminal disc herniation L5-S1 and moderate left intraforaminal disc herniation in L3-4, as well as mild disc bulging throughout the lumbar spine and multilevel degenerative disc disease, facet arthropathy * since we are limited in the pain meds he can be given, as he gets hallucinations with opiates, steroids and muscle relaxants, I think it is prudent to consult pain management for a pain shot. Dr Menchaca is away till june 06, so will consult Dr Aguilar * * * #Visual hallucinations * Likely due to polypharmacy. Patient was on prednisone, flexeril, and opiates and the synergistic effects likely resulted in this confusion and visual sensations. * prednisone and flexeril dc'd. * visual hallucinations recurred after he was given one dose of oxycodone yesterday, so it was discontinued. * * #CAD s/p CABG * Had CABG in 2017 * On aspirin and high intensity statin * #History of nonrheumatic aortic valve stenosis: S/p aortic valve replacement in October 2016 #Hypertension: On hydrochlorothiazide and lisinopril #Hyperlipidemia: On statin #COPD: On tiotropium inhaler. Breathing treatments bronchodilators. DVT prophylaxis: lovenox Code status: full code * Charges/Coding Visit Charges OBSV E&M: 53433 Subsequent observation care L2
[2022-05-28] MEDS: 0.9% Saline Lock 10 ML Syringe IV (10:39)
--- NOTE | 2022-05-28 13:02 | DS.PCM_ITS ---
Providers Date of Admission: 05/26/22 Date of Discharge: 05/28/22 Primary Care Physician: Dr. 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 * oxycodone stopped o/a of patient having hallucinations * MRI of lumbar spine showed moderate right intraforaminal disc herniation L5-S1 and moderate left intraforaminal disc herniation in L3-4, as well as mild disc bulging throughout the lumbar spine and multilevel degenerative disc disease, facet arthropathy * since we are limited in the pain meds he can be given, as he gets hallucinations with opiates, steroids and muscle relaxants, I think it is prudent to consult pain management for a pain shot. Dr Menchaca is away till june 06, so will consult Dr Aguilar * * * #Visual hallucinations * Likely due to polypharmacy. Patient was on prednisone, flexeril, and opiates and the synergistic effects likely resulted in this confusion and visual sensations. * prednisone and flexeril dc'd. * visual hallucinations recurred after he was given one dose of oxycodone yesterday, so it was discontinued. * * #CAD s/p CABG * Had CABG in 2017 * On aspirin and high intensity statin * #History of nonrheumatic aortic valve stenosis: S/p aortic valve replacement in October 2016 #Hypertension: On hydrochlorothiazide and lisinopril #Hyperlipidemia: On statin #COPD: On tiotropium inhaler. Breathing treatments bronchodilators. DVT prophylaxis: lovenox Code status: full code * Medications at Discharge Home Medications aspirin 81 mg chewable tablet 81 mg PO DAILY@0800 12/05/16 tiotropium bromide 2.5 mcg/actuation mist for inhalation (Spiriva Respimat) 2 inh inhalation QAM 04/19/21 lisinopril 20 mg tablet 20 mg PO QDAY #90 tabs 08/12/21 pantoprazole 40 mg tablet,delayed release 40 mg PO DAILY 03/13/22 paroxetine HCl 20 mg tablet 20 mg PO DAILY 03/13/22 potassium 99 mg tablet 99 mg PO DAILY 03/29/22 hydrochlorothiazide 25 mg tablet 25 mg PO DAILY #90 tabs 04/17/22 atorvastatin 40 mg tablet 40 mg PO QHS 04/20/22 acetaminophen 325 mg capsule (Tylenol) 650 mg PO Q6H PRN Pain 05/26/22 Hospital Course Operations None Procedures None Summary of Care Provided Minutes Spent on Discharge: 40 Hospital Course: PURA VEGA, is a 76 M with a PMH as outlined who presents via the ED on 05/02 with a complaint of RLE and back pain as well as hallucinations.? He had presented about a week ago with right lower back pain which radiated down his right leg.? He was given hydrocodone, Flexeril and Medrol Dosepak in the ED at that time and discharged home.? However according to the patient did not have much improvement with his pain but subsequently started having visual hallucinations.? She called his PCP and he was taken off the prednisone and hydrocodone and switch to Percocet.? However hallucinations persisted and so she brought him into the ED.? He still complains of pain to the right lower extremity and right back and the back pain radiates down the back of his right leg.? He says he is able to ambulate but gets tired because of the pain.? He denies any fever, any chills, any nausea vomiting or any other symptoms.? He denies any numbness or tingling or any bladder or bowel incontinence.? Review of systems otherwise negative. Vitals in the ED were BP of 117/82, pulse rate of 70 and respiratory rate of 18 breaths/min.? He was saturating at 97% on room air and temperature was 98.1 Fahrenheit.? CBC was unremarkable and BMP was remarkable only for creatinine of 1.34.? Urinalysis was negative for any evidence of UTI.? Lumbar spine CT showed mild degenerative changes of the lumbar spine with dextroscoliosis and CT of the brain done on account of hallucination showed no acute intracranial calvarial abnormality.? He was admitted to be managed for debility due to right lower extremity pain which is likely due to sciatica from lumbar spinal stenosis as well as visual hallucinations which is likely a side effect of the opiates and prednisone he had been taking. HE was placed on tylenol and ibuprofen. MRI of the lumbar spine showed moderate right intraforaminal disc herniation L5-S1 and moderate left intraforaminal disc herniation in L3-4, as well as mild disc bulging throughout the lumbar spine and multilevel degenerative disc disease, facet arthropathy. Pain still wasnt very well controlled, and patient was given PO oxycodone, but subsequently had visual hallucinations, so this was discontinued. Decision was made to consult pain management for a pain shot as there were limited meds we could give for his back pain. His pain management physician Dr Menchaca was however signed out till June 06; I did try to consult Dr Del Real, but he was only seeing his patients. Patient worked with PT/OT and didnt have any need for further therapy. He was therefore discharted home on 05/28/2022. He is to follow up with his pain management doctor within 1-2 weeks. He was discharged home on PO tylenol. Patient seen and examined prior to discharge. He had no active complaints and had an uneventful night. Review of systems otherwise negative. Labs and vitals reviewed. Home medication reviewed and reconciled. requested that patient be given driving restrictions in light of his episodic hallucinations especially when he takes pain meds. He is to follow-up with his primary care doctor and start driving when cleared by his primary care doctor. Physical Exam Const alert, oriented x3 and no apparent distress General Appearance: cooperative and comfortable Orientation / Consciousness: awake HEENT normocephalic, head/scalp atraumatic, hearing grossly normal bilaterally and moist oral mucous membranes Eyes PERRL, EOMs intact bilaterally and conjunctivae normal Neck no lymphadenopathy, supple and no JVD Resp normal respiratory effort, no retractions, no use of accessory muscles and clear to auscultation bilaterally Cardio regular rate, regular rhythm, S1 normal heart sound, S2 normal heart sound and no murmurs GI normal to inspection, nondistended, normoactive bowel sounds, soft to palpation, non-tender and non-distended Extremity normal to inspection, full ROM and no clubbing, cyanosis or edema Skin no rashes or lesions noted and no wounds Neuro oriented x3, CN's II-XII intact bilaterally, moves all extremities and no focal motor deficits Sensorium / Orientation: awake and alert Motor Exam: strength 5/5 throughout Psych affect normal Weight / BMI Weight Weight: 190 lb 7.67 oz Body Mass Index (BMI) 27.2 ABG / Lab / Microbiology Data Result Diagrams: 05/28/22 05:00 05/28/22 05:00 Laboratory: Laboratory Results - last 24 hr 05/28/22 05:00: WBC 7.5, RBC 4.05 L, Hgb 12.6 L, Hct 38.3 L, MCV 94.6 H, MCH 31.1, MCHC 32.9, RDW Std Deviation 43.0, RDW Coeff of Alyssa 12.4, Plt Count 146 L, MPV 10.1, Immature Gran % (Auto) 0.300, Neut % (Auto) 55.9, Lymph % (Auto) 25.4, [place]bot % (Auto) 10.3 H, Eos % (Auto) 7.4 H, Baso % (Auto) 0.7, Absolute Neuts (auto) 4.2, Absolute Lymphs (auto) 1.90, Nucleated RBC % 0 05/28/22 05:00: Sodium 140, Potassium 4.3, Chloride 104, Carbon Dioxide 32.0, Anion Gap 4 L, BUN 28 H, Creatinine 1.34 H, Estim Creat Clear Calc 49.18, Est GFR (MDRD) Af Amer 67, Est GFR (MDRD) Non-Af 55 L, BUN/Creatinine Ratio 20.9 H, Glucose 100, Calcium 8.9 D/C Instructions Discharge Diet: Low fat / Low cholesterol Discharge Activity: Return to Normal Activity Weight Bearing Status: Weight bearing as tolerated Additional Activity Instructions: No driving until cleared by PCP o/a of visual hallucinations Call your doctor if you observe: Uncontrolled pain Meaningful Use Info Meaningful Use Diagnoses (Choose all that apply): None applicable Discharge Plan Admission Admit Date/Time: 05/26/22 18:41 Primary Reason for Your Visit: intractable back adn RLE pain Attending Provider: Alison Micahel Primary Care Provider: Wade Barclay Instructions Forms: Work / School Excuse Patient Instructions: ED Sciatica Additional Instructions / Restrictions: No driving until cleared by PCP o/a of visual hallucinations Discharge Orders/Prescriptions Prescriptions: Continued Spiriva Respimat 2.5 mcg/actuation mist 2 inh inhalation QAM pantoprazole 40 mg tablet,delayed release (DR/EC) 40 mg PO DAILY paroxetine HCl 20 mg tablet 20 mg PO DAILY aspirin 81 MG tablet,chewable 81 mg PO DAILY@0800 0RF potassium 99 mg Tablet 99 mg PO DAILY atorvastatin 40 mg tablet 40 mg PO QHS acetaminophen [Tylenol] 325 mg Capsule 650 mg PO Q6H PRN (Reason: Pain) lisinopril 20 mg tablet 20 mg PO QDAY Qty: 90 3RF hydrochlorothiazide 25 mg tablet 25 mg PO DAILY Qty: 90 3RF Referrals / Follow Up: Wade Barclay MD [Primary Care Provider] - Within 1 Week Angelica Menchaca MD [Med Staff - Active Staff] - Within 1 Week Disposition Disposition (needs filled in before D/C Order can be placed): Home, Self Care Charges/Coding Visit Charges Inpatient E&M: 53949 Disch Hosp
[2022-05-28 13:21] VITALS: BP 137/88; PULSE 86; RESP 16; TEMP 36.8; O2SAT 97
[2022-05-28 13:51] VITALS: PULSE 66; RESP 16
== END 2022-05-28 14:23 | disposition home or self-care (01) ==
LOC: ED 18:14 → MS3 19:34
PROVIDERS: Nurse Practitioner; Admitting Provider Student in an Organized Health Care Education/Training Program; Emergency Provider Emergency Medicine; PCP Family Medicine; Visit Provider Student in an Organized Health Care Education/Training Program
DX: M51.16 Intervertebral disc disorders with radiculopathy, lumbar region (principal); G31.9 Degenerative disease of nervous system, unspecified; J44.9 Chronic obstructive pulmonary disease, unspecified; I25.10 Atherosclerotic heart disease of native coronary artery without angina pectoris; M48.061 Spinal stenosis, lumbar region without neurogenic claudication; M51.17 Intervertebral disc disorders with radiculopathy, lumbosacral region; E78.5 Hyperlipidemia, unspecified; R44.3 Hallucinations, unspecified; Z87.891 Personal history of nicotine dependence; I10 Essential (primary) hypertension; Z79.899 Other long term (current) drug therapy; Z79.82 Long term (current) use of aspirin; I25.2 Old myocardial infarction; Z95.2 Presence of prosthetic heart valve; Z95.1 Presence of aortocoronary bypass graft
CPT/HCPCS: 36415; 70450; 72131; 72148; 80048; 81001; 85025; 93005; 94640; 96360; 96361; 96372; 97161; 97165; 99218; 99284; J7040; A4216; G0378

== ENCOUNTER → 2022-06-14 | Outpatient (CLI) | payer MEDICARE, OTHER, SELFPAY ==
--- NOTE | 2022-06-14 08:08 | ECHOD_ITS ---
Reason For Study: Aortic dilatation, AVR, CABG Procedure This was a 2D Doppler, Color Flow transthoracic echocardiogram. Exam performed in department. Left Ventricle Normal LV size. Left ventricular systolic function is normal. The estimated ejection fraction is 55 %. Stage 1 diastolic dysfunction. Right Ventricle Normal RV size. Normal systolic function. Atria Normal left atrium. Normal right atrium. Mitral Valve Normal mitral valve. Tricuspid Valve Normal tricuspid valve. Aortic Valve Bioprosthetic aortic valve. Pulmonic Valve Normal pulmonic valve. Great Vessels Mild to moderately dilated aortic root. The pulmonary artery is normal size. Normal inferior vena cava. Pericardium/Pleural No pericardial effusion. MMode/2D Measurements & Calculations LVIDd: 4.0 cm IVSd: 1.5 cm LVOT diam: 2.0 cm LVIDs: 2.2 cm LVPWd: 1.1 cm LVOT area: 3.2 cm2 RVDd: 3.5 cm FS: 43.6 % Ao root diam: 4.7 cm LAV(MOD-bp): 39.2 ml LVAd ap4: 25.3 cm2 LAV(MOD-bp) Indexed: 18.9 ml/m2 LVLd ap4: 8.2 cm LAV(MOD-sp2): 43.7 ml EDV(MOD-sp4): 66.6 ml LAV(MOD-sp4): 32.0 ml EDV(sp4-el): 66.3 ml LVAs ap4: 15.8 cm2 LVLs ap4: 7.2 cm ESV(MOD-sp4): 31.5 ml ESV(sp4-el): 29.6 ml EF(MOD-sp4): 52.7 % EF(sp4-el): 55.4 % LVAd ap2: 26.8 cm2 SV(MOD-sp4): 35.1 ml SV(MOD-sp2): 42.7 ml LVLd ap2: 8.4 cm EDV(MOD-sp2): 73.9 ml EDV(sp2-el): 72.5 ml LVAs ap2: 16.8 cm2 LVLs ap2: 7.9 cm ESV(MOD-sp2): 31.1 ml ESV(sp2-el): 30.3 ml EF(MOD-sp2): 57.8 % SV(sp4-el): 36.7 ml LA A4 area: 13.5 cm2 RA A4 area: 14.8 cm2 Doppler Measurements & Calculations MV E max ranjeet: 44.8 cm/sec Lat Peak E' Ranjeet: 6.3 cm/sec Med Peak E' Ranjeet: 6.6 cm/sec MV A max ranjeet: 60.0 cm/sec E/E' lat: 7.1 E/E' med: 6.8 MV E/A: 0.75 Ao V2 max: 185.9 cm/sec LV V1 max: 125.9 cm/sec SV(LVOT): 73.4 ml Ao max P.8 mmHg LV V1 max P.3 mmHg Ao V2 mean: 117.7 cm/sec LV V1 mean P.1 mmHg Ao mean P.4 mmHg LV V1 mean: 83.7 cm/sec Ao V2 VTI: 34.9 cm LV V1 VTI: 22.9 cm MAL(I,D): 2.1 cm2 MAL(V,D): 2.2 cm2 PA V2 max: 113.4 cm/sec ECHO/Echo Complete Interpretation Summary Normal LV size. Left ventricular systolic function is normal. Mild to moderately dilated aortic root. The estimated ejection fraction is 55 %. Bioprosthetic aortic valve. Stage 1 diastolic dysfunction. Ordering Physician: TYREL FELIZ Referring Physician: Wade Barclay MD Performed By: Katja Caraballo RDCS
== END | disposition home or self-care (01) ==
LOC: CVS 07:59
PROVIDERS: PCP Family Medicine
DX: I77.810 Thoracic aortic ectasia (principal); Z95.1 Presence of aortocoronary bypass graft; Z95.2 Presence of prosthetic heart valve
CPT/HCPCS: 93306

== ENCOUNTER 2023-09-07 19:34 | Emergency (ER) | payer MEDICARE, OTHER, SELFPAY ==
[2023-09-07] VITALS (7 sets, daily range): BP systolic 171; BP diastolic 94; PULSE 57–67; RESP 16–22; TEMP 36.6; O2SAT 93–98; BMI 29.1
[2023-09-07] MEDS: Ipratropium/Albuterol Sulfate 3 ML AMPUL.NEB INHALATION (20:29)
[2023-09-07 20:40] LABS: Absolute Lymphocyte Count 1.59 X10^3/uL (0.83-4.51); Absolute Neutrophil Count 4.5 X10^3/uL (2.0-7.7); Basophil# 0.08 X10^3/uL; Eosinophil# 1.07 X10^3/uL; Eosinophils% 13.4 % (0-5); Hematocrit 38.3 % (40-54); Hemoglobin 12.5 g/dL (13.0-16.5); Lymphocyte # 1.59 X10^3/ul (0.83-4.51); Lymphocyte % 19.9 % (19-41); Mean Corp Hgb Conc 32.6 g/dL (32-36); Mean Corpuscular Hgb 30.6 pg (27.0-32.0); Mean Corpuscular Volume 93.6 fL (80-94); Mean Platelet Vol. 10.4 fl (6.2-12.0); Monocyte# 0.78 X10^3/uL; Monocyte% 9.8 % (0-10); NRBC Flagged by Analyzer 0 % (0-5); Neutrophil # 4.47 X10^3/uL (2.7-7.7); Neutrophil % 55.8 % (47-70); Platelet Count 133 K/mm3 (150-450); RBC Distribution Width CV 12.4 % (11.6-14.6); RBC Distribution Width SD 42.9 fl (35.1-43.9); Red Blood Count 4.09 M/mm3 (4.6-6.2)
[2023-09-07 20:49] LABS: D-Dimer Quantitative (DVT/PE) 2.62 FEU/ug/m (0.27-0.49)
[2023-09-07 20:50] LABS: Lactic Acid 1.1 mmol/L (0.4-1.9)
--- NOTE | 2023-09-07 20:50 | RAD_ITS ---
STUDY: X-RAY CHEST REASON FOR EXAM: Male, 78 years old. sob TECHNIQUE: AP portable COMPARISON: September 01 FINDINGS: The lungs are clear and expanded. There is no demonstrated pleural abnormality. Postop change status post median sternotomy Normal size heart. Normal mediastinum and cory. Normal visualized pulmonary arteries. Normal visualized aortic arch and descending thoracic aorta. Dorsal spine and shoulders demonstrate mild degenerative change. Normal visualized ribs, and clavicles.. There is no demonstrated abnormality of the visualized soft tissue structures of the upper abdomen. RAD/Chest 1 View (Portable) IMPRESSION: No acute cardiopulmonary pathology Electronically Signed: Jace Gallego MD at 21:29 EST ,
[2023-09-07 20:52] LABS: Anion Gap 1 (5-15); BUN 25 mg/dL (7-18); Calcium,Total 9.1 mg/dL (8.5-10.1); Chloride 109 mmol/L (98-107); Creatinine, Serum 1.39 mg/dL (0.70-1.30); EST Glomerular Filtration Rate 53 mL/min (>60); Est Glom Filt Rate - Afr Amer 64 mL/min (>60); Estimated Creatinine Clearance 45.95 ml/min; Glucose 130 mg/dL (74-106); Potassium 4.2 mmol/L (3.5-5.1); Sodium Level 141 mmol/L (136-145); Troponin-I HS 14 pg/mL (3.0-78.0)
--- NOTE | 2023-09-07 20:55 | CT_ITS ---
STUDY: CTA CHEST REASON FOR EXAM: Male, 78 years old. PE study, SOB, elevated dimer RADIATION DOSAGE (If Supplied By Facility): CTDIvol = ( 12.41 ) mGy, DLP = ( 501.36 ) mGycm TECHNIQUE: The examination was performed with the intravenous administration of IV 100mL [id number]-[id number]. Post-processing of the angiographic images was performed, with multiplanar reformation and 3D reconstruction. Individualized dose optimization techniques were used for this CT. COMPARISON: CTA of the chest May 10, 2020 FINDINGS: Normal enhancement of the main pulmonary artery and right and left pulmonary arteries. Normal enhancement of the bilateral peripheral pulmonary arteries. There is no demonstrated pulmonary embolism. There are atherosclerotic changes of the aorta and aneurysmal dilatation of the ascending aorta measuring approximately 4.7 cm. There is no demonstrated aortic dissection. Normal heart and pericardium. Mild coronary artery calcification noted Normal mediastinum. Normal hilar regions. Normal visualized trachea and bronchi. The lungs are well expanded. Normal pulmonary parenchyma. Normal pleura. Postop change status post median sternotomy and CABG. The dorsal spine demonstrates degenerative change Small hiatal hernia noted Normal visualized upper abdomen. CT/CTA Chest W/WO Contrast IMPRESSION: ASHD and nominal aortic aneurysm without evidence for periaortic leak or dissection. No evidence for pulmonary embolus. Electronically Signed: Jace Gallego MD at 21:52 EST ,
[2023-09-07 21:02] LABS: BNP,B-Type NATRIURETIC PEPTIDE 62.4 pg/mL (0-100)
[2023-09-07] MEDS: Albuterol 2.5 MG/3 ML VIAL.NEB. INHALATION (22:32)
[2023-09-07] MEDS: MethylPREDNISolone 125 MG/2 ML Vial IV (22:36)
--- NOTE | 2023-09-07 22:49 | CPS ---
[2232] x1 Albuterol given to pt. in ER. Pre-HR=54, RR=20 with diminished breath sounds and scattered wheezes through out. Post-HR=53, RR=20 with clearer breath sounds. Scattered wheezes through out still noted.
[2023-09-07] MEDS: Albuterol Sulfate 8 gm Inhaler (60 puffs) 2 PUFF INHALATION (23:51)
[2023-09-08] VITALS: RESP 18
[2023-09-08] MEDS: Azithromycin 250 MG Tablet 500 MG PO (00:06)
--- NOTE | 2023-09-08 00:06 | EDS_ITS ---
HPI History of Present Illness Chief Complaint: Chest Pain Informant: patient Narrative Narrative: Patient is 78-year-old male with history of COPD, thoracic aortic aneurysm, hypertension, hyperlipidemia and coronary artery disease status post CABG presenting with worsening shortness of breath. Patient takes daily Spiriva but does not follow with certified nurses aide. He recently flew to [place] and then took a cruise across the [place] back to the [place]. He returned to [place] today and him directly to the hospital. He is complaining of worsening shortness of breath difficulty breathing. This been going on for the past 3 to 4 days. Denies any fever or chills. Denies any URI symptoms. He has a chronic cough of green sputum but has been worse over the past few days. Has some mild chest discomfort on the left. His also recently had a cough but has been doing much better. He is not sure if he has a rescue inhaler to use at home. He does not have an albuterol nebulizer at home. No other complaints at this time. Denies any swelling of his legs. Denies a history of DVT or PE. [facility] Medical History Anxiety Arthritis Atherosclerotic heart disease of [place] coronary artery without angina pectoris Back pain Chronic cough COPD (chronic obstructive pulmonary disease) Depression Essential (primary) hypertension Former smoker Hallucination, drug-induced History of colon polyps History of non-ST elevation myocardial infarction (NSTEMI) (08/2016) Hyperlipidemia Intractable back pain Leg cramps Lumbar stenosis Non-rheumatic aortic stenosis Sciatica Shortness of breath on exertion Thoracic aortic aneurysm (TAA) Wears dentures Wears glasses Wears hearing aid Home Medications aspirin 81 mg chewable tablet 81 mg PO DAILY@0800 09/04/16 [Rx Last Taken Unknown] tiotropium bromide 2.5 mcg/actuation mist for inhalation (Spiriva Respimat) 2 inh inhalation QAM 04/19/21 [History Last Taken Unknown] pantoprazole 40 mg tablet,delayed release 40 mg PO DAILY 03/13/22 [History Last Taken Unknown] paroxetine HCl 20 mg tablet 20 mg PO DAILY 03/13/22 [History Last Taken Unknown] potassium 99 mg tablet 99 mg PO DAILY 03/29/22 [History Last Taken Unknown] acetaminophen 325 mg capsule (Tylenol) 650 mg PO Q6H PRN Pain 05/26/22 [History Last Taken Unknown] atorvastatin 40 mg tablet 40 mg PO QHS #90 tabs 11/16/22 [Rx Last Taken Unknown] hydrochlorothiazide 25 mg tablet 25 mg PO DAILY #90 tabs 11/16/22 [Rx Last Taken Unknown] lisinopril 20 mg tablet 20 mg PO QDAY #90 tabs 11/16/22 [Rx Last Taken Unknown] azithromycin 250 mg tablet 250 mg PO DAILY #4 TABLETS 09/08/23 [Rx Last Taken Unknown] dexamethasone 6 mg tablet 9 mg (1.5 x 6 mg) PO DAILY 5 days #8 tabs 09/08/23 [Rx Last Taken Unknown] Allergy/AdvReac Type Severity Reaction Status Date / Time cyclobenzaprine AdvReac Other Verified 09/07/23 19:37 hydrocodone [From [place]] AdvReac Hallucinati Verified 09/07/23 19:37 ons oxycodone AdvReac Hallucinati Verified 09/07/23 19:37 ons prednisone AdvReac Other Verified 09/07/23 19:37 Family History Father CAD (coronary artery disease) Brother CAD (coronary artery disease) Mother Cancer Brother Cancer Brother Cancer Surgical History H/O coronary artery bypass surgery (10/11/16) History of aortic valve replacement (10/11/16) History of left heart catheterization (09/02/16) Hx of colonoscopy Hx of surgical procedure Social History Smoking Status: Former smoker alcohol intake: never caffeine: Yes Type: coffee Number of servings: 3 ROS ROS ED Constitutional Constitutional ED: Denies chills or fever(s) ENT ENT ED: Denies rhinorrhea or sore throat Cardiovascular Cardiovascular: Reports chest pain; Denies orthopnea or palpitations Respiratory/Chest Respiratory/Chest: Reports cough, dyspnea and sputum; Denies orthopnea Gastrointestinal Gastrointestinal: Denies abdominal pain, nausea or vomiting Musculoskeletal Musculoskeletal: Denies arthralgias or myalgias Integumentary Denies rash Neurologic Neurologic: Denies headache(s) Psychiatric Psychiatric: Denies anxiety EXAM Physical Exam Const Vital Signs: 09/07/23 19:34 09/07/23 19:51 09/07/23 19:56 Temperature 97.9 F Temperature Source Temporal Pulse Rate 67 57 L Respiratory Rate 18 16 Respiratory Effort Short of Breath Respiratory Pattern Blood Pressure 171/94 H Blood Pressure Mean 119 Pulse Ox 98 97 Oxygen Delivery Method Room Air Room Air Room Air 09/07/23 20:06 09/07/23 20:29 09/07/23 22:39 Temperature Temperature Source Pulse Rate 62 63 Respiratory Rate 22 H 18 Respiratory Effort Respiratory Pattern Tachypnea Blood Pressure Blood Pressure Mean Pulse Ox 97 93 Oxygen Delivery Method Room Air Positive well nourished and well developed Constitutional Narrative: mild respiratory distress General Appearance ED: well developed HEENT Reports moist mucous membranes Eyes PERRL and EOMs intact bilaterally Neck supple and no JVD Chest Wall Chest Narrative: No chest wall crepitus Resp Resp Narrative: increased Work of breathing, supraclavicular retractions present Auscultation: wheezes and diminished lung sounds Cardio regular rate, regular rhythm and no murmurs GI non-tender and non-distended Extremity normal to inspection General Extremety ED: Negative for edema General Extremity: Negative for edema Neuro oriented x3 Sensorium / Orientation: alert Motor Exam: Negative for general weakness Psych mental status grossly normal Skin no wounds General Skin Exam: Negative for jaundice Rashes: no rashes MDM MDM MDM Narrative Medical decision making narrative: Patient evaluated with increased work of breathing. Physical exam most consistent with COPD exacerbation however differential also includes pulmonary emboli given his recent travel, pneumonia and less likely ACS. Patient given a DuoNeb with improvement of his respiratory symptoms. He is actually wheezing more and moving more air now. Chest x-ray reviewed by myself as well as radiology does not show any acute infiltrate. He does have a significantly elevated D-dimer at 2.62 and a CTA of the chest is ordered to rule out pulmonary emboli. No PE is found however patient does have findings consistent with atherosclerotic heart disease as well as an aortic aneurysm without signs of leak or rupture. Patient has documented history of aortic aneurysm and I do not think this requires emergent follow-up at this time. He has a very mild anemia with a hemoglobin of 12.5 which is nonspecific as well as chronic and I do not think related to his presentation. High since he troponin is normal and EKG does not show any acute ischemic changes. BNP is normal and clinically patient does not appear fluid overloaded. He does have a mild elevation of his creatinine however this is at his baseline. Patient is given Solu-Medrol. Will avoid prednisone at this time as he has a possible reaction or mental status change to it. Is given an additional albuterol treatment with further improvement of his respiratory symptoms. Is ambulated and states he feels much better would like to go home. Is offered observation given his respiratory distress upon arrival/severity of symptoms however he would like to try outpatient treatment. Is given an albuterol inhaler with instruction/spacer in the emergency room. Is put on 5- day course of Decadron to help decrease the inflammation in his lungs and is also given a short course of azithromycin as well. Given strict return precautions. Counseled to discuss getting a nebulizer from his primary care doctor when he follows up outpatient. I do think he would benefit from a home nebulizer for when he has these type of exacerbations. Discharged home in stable and improved condition. History & Record Review Additional record(s) reviewed:: Prior labs Lab Data Attestation: I reviewed the patient's lab results. Labs: Laboratory Results - last 24 hr 09/07/23 09/07/23 20:05 20:15 WBC 8.0 RBC 4.09 L Hgb 12.5 L Hct 38.3 L MCV 93.6 MCH 30.6 MCHC 32.6 RDW Std Deviation 42.9 RDW Coeff of Alyssa 12.4 Plt Count 133 L MPV 10.4 Immature Gran % (Auto) 0.100 Neut % (Auto) 55.8 Lymph % (Auto) 19.9 [place] % (Auto) 9.8 Eos % (Auto) 13.4 H Baso % (Auto) 1.0 Absolute Neuts (auto) 4.5 Absolute Lymphs (auto) 1.59 Nucleated RBC % 0 D-Dimer Quant (PE/DVT) 2.62 H* Sodium 141 Potassium 4.2 Chloride 109 H Carbon Dioxide 31.0 Anion Gap 1 L BUN 25 H Creatinine 1.39 H Estim Creat Clear Calc 45.95 Est GFR (MDRD) Af Amer 64 Est GFR (MDRD) Non-Af 53 L BUN/Creatinine Ratio 18.0 Glucose 130 H Lactic Acid 1.1 Calcium 9.1 Troponin I High Sens 14 B-Natriuretic Peptide 62.4 Radiography Chest X-Ray - ED: 1 View, Read by ED Physician, Read by Radiologist and No Acute Disease Diagnostic Testing: Clinical Impression(s) from Imaging Studies Chest X-Ray 09/07/23 20:50 IMPRESSION: No acute cardiopulmonary pathology Electronically Signed: Jace Gallego MD at 21:29 EST , Chest CTA 09/07/23 20:55 IMPRESSION: ASHD and nominal aortic aneurysm without evidence for periaortic leak or dissection. No evidence for pulmonary embolus. Electronically Signed: Jace Gallego MD at 21:52 EST , Rhythm Strip Rhythm Strip: Sinus Rhythm Rate: 57 Ectopy: None EKG Initial EKG: Attestation: I personally reviewed and interpreted this EKG as follows: Interpretation: Sinus Bradycardia Comments: Sinus bradycardia at a rate of 57 bpm Normal axis Normal intervals Normal ST segments Discharge Plan Triage Chief Complaint: Chest Pain Other Complaint: Shortness of Breath ED Provider: Myranda Sharma Dx/Rx/DC Orders Clinical Impression: Acute exacerbation of chronic obstructive pulmonary disease Instructions: ED COPD Flare Prescriptions: New dexamethasone 6 mg tablet 9 mg PO DAILY 5 Days Qty: 8 0RF azithromycin 250 mg tablet 250 mg PO DAILY Qty: 4 0RF No Action Spiriva Respimat 2.5 mcg/actuation mist 2 inh inhalation QAM pantoprazole 40 mg tablet,delayed release (DR/EC) 40 mg PO DAILY paroxetine HCl 20 mg tablet 20 mg PO DAILY aspirin 81 MG tablet,chewable 81 mg PO DAILY@0800 0RF potassium 99 mg Tablet 99 mg PO DAILY acetaminophen [Tylenol] 325 mg Capsule 650 mg PO Q6H PRN (Reason: Pain) lisinopril 20 mg tablet 20 mg PO QDAY Qty: 90 3RF atorvastatin 40 mg tablet 40 mg PO QHS Qty: 90 3RF hydrochlorothiazide 25 mg tablet 25 mg PO DAILY Qty: 90 3RF Primary Care Provider: Wade Barclay Referrals: Wade Barclay MD [Primary Care Provider] - Activity Restrictions/Additional Instructions: Continue to use your Spiriva inhaler daily. Use the albuterol inhaler given to you in the ER with a spacer. Take 1 to 2 puffs every 4-6 hours as needed for shortness of breath or wheezing. If your breathing worsens please return immediately to the emergency room. Make sure you are drinking plenty of fluids. Disposition Disposition: Home, Self Care Discharge Date/Time: 09/08/23 00:15
== END 2023-09-08 00:15 | disposition home or self-care (01) ==
PROVIDERS: Emergency Provider Emergency Medicine; PCP Family Medicine; Visit Provider Emergency Medicine
DX: J44.1 Chronic obstructive pulmonary disease with (acute) exacerbation (principal); I25.10 Atherosclerotic heart disease of native coronary artery without angina pectoris; I10 Essential (primary) hypertension; R06.02 Shortness of breath; I25.2 Old myocardial infarction; E78.5 Hyperlipidemia, unspecified; F41.9 Anxiety disorder, unspecified; Z87.891 Personal history of nicotine dependence; Z79.82 Long term (current) use of aspirin; Z79.899 Other long term (current) drug therapy; Z95.1 Presence of aortocoronary bypass graft
CPT/HCPCS: 71045; 71275; 80048; 83605; 83880; 84484; 85025; 85379; 87428; 93005; 94640; 96374; 99285; Q9967; A4216

== ENCOUNTER 2023-10-15 17:32 | Inpatient (IN) | payer OTHER, SELFPAY ==
[2023-10-15 17:34] VITALS: BP 160/94; PULSE 69; RESP 16; TEMP 36.4; O2SAT 98; BMI 29.6
[2023-10-15 17:37] VITALS: O2SAT 97
--- NOTE | 2023-10-15 17:43 | EKG12_ITS ---
Test Reason : SOB Blood Pressure : / mmHG Vent. Rate : 065 BPM Atrial Rate : 065 BPM P-R Int : 174 ms QRS Dur : 104 ms QT Int : 414 ms P-R-T Axes : 053 -02 059 degrees QTc Int : 430 ms Normal sinus rhythm Normal ECG Confirmed by JEANA LOPEZ, WILLIAM ([id number]), fashion editor CHRISTIN SRIVASTAVA ([id number]) on 10/17/2023 9:16:21 AM Referred By: BOB Confirmed By:WILLIAM HILLS MD
[2023-10-15] MEDS: Albuterol 2.5 MG/3 ML VIAL.NEB. INHALATION (17:45)
[2023-10-15 17:46] VITALS: PULSE 68; RESP 16
[2023-10-15 17:53] LABS: Absolute Lymphocyte Count 1.93 X10^3/uL (0.83-4.51); Absolute Neutrophil Count 4.6 X10^3/uL (2.0-7.7); Basophil# 0.09 X10^3/uL; Eosinophil# 1.33 X10^3/uL; Eosinophils% 15.3 % (0-5); Hematocrit 40.9 % (40-54); Hemoglobin 13.3 g/dL (13.0-16.5); Lymphocyte # 1.93 X10^3/ul (0.83-4.51); Lymphocyte % 22.2 % (19-41); Mean Corp Hgb Conc 32.5 g/dL (32-36); Mean Corpuscular Hgb 30.6 pg (27.0-32.0); Mean Platelet Vol. 10.1 fl (6.2-12.0); Monocyte# 0.72 X10^3/uL; Monocyte% 8.3 % (0-10); NRBC Flagged by Analyzer 0 % (0-5); Neutrophil # 4.59 X10^3/uL (2.7-7.7); Neutrophil % 52.9 % (47-70); Platelet Count 155 K/mm3 (150-450); RBC Distribution Width CV 11.9 % (11.6-14.6); RBC Distribution Width SD 41.2 fl (35.1-43.9); Red Blood Count 4.35 M/mm3 (4.6-6.2); White Blood Count 8.7 K/mm3 (4.4-11.0)
[2023-10-15] MEDS: MethylPREDNISolone 125 MG/2 ML Vial IV (17:54)
--- NOTE | 2023-10-15 18:05 | RAD_ITS ---
STUDY: X-RAY CHEST REASON FOR EXAM: Male, 78 years old. copd TECHNIQUE: AP portable COMPARISON: September 07, 2023 FINDINGS: Lungs are mildly hyperinflated but clear. There is no demonstrated pleural abnormality. Postop change status post median sternotomy Normal size heart. Normal mediastinum and cory. Normal visualized pulmonary arteries. Mildly calcified aortic arch and descending thoracic aorta. Normal visualized thoracic spine. Normal visualized ribs, clavicles, and shoulders. There is no demonstrated abnormality of the visualized soft tissue structures of the upper abdomen. RAD/Chest 1 View (Portable) IMPRESSION: Mild hyperinflation. No acute cardiopulmonary pathology Electronically Signed: Jace Gallego MD at 18:46 EST ,
--- OUTSIDE RECORDS SUMMARY | 2023-10-15 18:18 | XMS RPT_ITS | CCD ---
Author Name Unknown Address [address] [place] [address] Organization [facility] Care Team Providers Care Building Maintenance Repairer Name Role Phone Sobia Phillips RN Unavailable Unavailable Neisha Rajput Unavailable Holger Swann Unavailable Unavailable Neisha Rajput Unavailable LETITIA CABRERA Admitting Unavailable DEBORAH, LETITIA Noriega Attending Unavailable DEBORAH, LETITIA Noriega Primary Care Unavailable LETITIA CABRERA Consulting Unavailable PROVIDER, UNKNOWN Consulting Unavailable PROVIDER, UNKNOWN Consulting Unavailable PROVIDER, UNKNOWN Consulting Unavailable LETITIA CABRERA Admitting Unavailable DEBORAH, LETITIA Noriega Attending Unavailable DEBORAH, LETITIA Noriega Primary Care Unavailable LETITIA CABRERA Consulting Unavailable PROVIDER, UNKNOWN Consulting Unavailable PROVIDER, UNKNOWN Consulting Unavailable PROVIDER, UNKNOWN Consulting Unavailable Unavailable Primary Care Provider Unavailabl e Unavailable Primary Care Provider Unavailabl e DAISY MURPHY Referring Unavailable DAISY MURPHY Attending Unavailable TYERL BERMUDEZ Referring Unavailable TYREL BERMUDEZ Attending Unavailable Medications Current Medications Medication Drug Class(es) Dates Sig (Normalized) Sig (Original) hydroCHLOROthiazide 25 mg oral tablet (3 sources) Thiazide Diuretic take 1 tablet by mouth once daily hydroCHLOROthiazide 25 MG tablet Take 25 mg by mouth daily. 0 Active PARoxetine hydrochloride 20 mg oral tablet (3 sources) Serotonin Reuptake Inhibitor take 1 tablet by mouth once daily PARoxetine 20 MG tablet Take 20 mg by mouth daily. 0 Active potassium 99 mg extended release oral tablet (3 sources) Potassium 99 MG tablet Take by mouth. 0 Active Completed/Discontinued Medications Medication Drug Class(es) Dates Sig (Normalized) Sig (Original) OXYCODONE-ACETAMINO PHEN (7 sources) Opioid Agonist Start: 11-10-2016 PERCOCET 5-325 MG TABS as directed OXYCODONE-ACETAMINOP [facility] [phone] Tiago Howell MD Problems Active Problems Problem Classification Problem Date Documented Date Episodic/Chronic Acute myocardial infarction (4 sources) Non-ST elevation (NSTEMI) myocardial infarction; Translations: [Non-ST elevation (NSTEMI) myocardial infarction] Onset: 11-08-2016 11-08-2016 Chronic Aortic; peripheral; and visceral artery aneurysms (4 sources) Ascending aorta dilatation; Translations: [Thoracic aortic ectasia] Onset: 05-12-2022 Chronic Coronary atherosclerosis and other heart disease (4 sources) Atherosclerotic heart disease of [place] coronary artery without angina pectoris; Translations: [Atherosclerotic heart disease of [place] coronary artery without angina pectoris] Onset: 10-31-2016 10-31-2016 Chronic Disorders of lipid metabolism (4 sources) Dyslipidemia; Translations: [Lipoprotein deficiency] Onset: 11-08-2016 11-08-2016 Chronic Essential hypertension (3 sources) Essential hypertension; Translations: [Essential (primary) hypertension] Onset: 05-12-2022 05-12-2022 Chronic Heart valve disorders (12 sources) Aortic valve stenosis; Translations: [Nonrheumatic aortic (valve) stenosis with insufficiency] Onset: 10-31-2016 Resolved: 11-10-2016 11-10-2016 Chronic Unclassified (2 sources) Replacement of aortic valve ; Translations: [Presence of prosthetic heart valve] Onset: 10-31-2016 10-31-2016 Unclassified (2 sources) Long-term drug therapy; Translations: [Other alf (current) drug therapy] Onset: 11-08-2016 11-08-2016 Past or Other Problems Problem Classification Problem Date Documented Da te Episodic/Chronic Coronary atherosclerosis and other heart disease (4 sources) Presence of aortocoronary bypass graft; Translations: [Presence of aortocoronary bypass graft] Onset: 10-31-2016 11-10-2016 Episodic Nonspecific chest pain (8 sources) Chest pain; Translations: [Chest pain, unspecified] Onset: 09-11-2016 Resolved: 11-10-2016 11-10-2016 Episodic Other aftercare (2 sources) Other joint terminal attack controller (current) drug therapy; Translations: [Other alf (current) drug therapy] Onset: 11-08-2016 11-08-2016 Episodic Other lower respiratory disease (8 sources) Dyspnea; Translations: [Shortness of breath] Onset: 09-11-2016 Resolved: 11-10-2016 09-11-2016 Episodic Unclassified (2 sources) Coronary artery bypass graft; Translations: [Presence of aortocoronary bypass graft] Onset: 10-31-2016 10-31-2016 Results Test Name Value Interpretation Reference Range Facil ity Vital Signs Date Time Vital Sign Value Performing Clinician Eufemia lia 05-12-2022 13:26-0400 Body height 177.8 cm Quinton Haro MD Work Phone: [facility] 05-12-2022 13:26-0400 Body mass index (BMI) [Ratio] 28.12 kg/m2 Quinton Haro MD Work Phone: [facility] 05-12-2022 13:26-0400 Body weight 88.91 kg Quinton Haro MD Work Phone: [facility] 05-12-2022 13:26-0400 Diastolic blood pressure 54 mm[Hg] Quinton Haro MD Work Phone: [facility] 05-12-2022 13:26-0400 Heart rate 51 /min Quinton Haro MD Work Phone: [facility] 05-12-2022 13:26-0400 Systolic blood pressure 95 mm[Hg] Quinton Haro MD Work Phone: [facility] 03-27-2017 13:33-0400 BMI (Body Mass Index) 28.12 kg/m2 [facility] Work Phone: 03-27-2017 13:33-0400 BP Diastolic 60 mm[Hg] [facility] Work Phone: 03-27-2017 13:33-0400 BP Systolic 130 mm[Hg] [facility] Work Phone: 03-27-2017 13:33-0400 Height 177.8 cm Neisha [facility] Work Phone: 03-27-2017 13:33-0400 Pulse (Heart Rate) 52 /min Neisha Rajput [facility] Work Phone: 03-27-2017 13:33-0400 Respiratory Rate 20 /min Neisha Rajput [facility] Work Phone: 03-27-2017 13:33-0400 Weight 88.91 kg Neisha Rajput [facility] Work Phone: 11-10-2016 13:55-0500 Heart rate 59 /min Harsanthosh DeFinis [facility] Work Phone: 11-10-2016 12:36-0500 BMI (Body Mass Index) 26.83 kg/m2 Harumi DeFinis [facility] Work Phone: 11-10-2016 12:36-0500 BP Diastolic 60 mm[Hg] Harumi DeFinis [facility] Work Phone: 11-10-2016 12:36-0500 BP Systolic 140 mm[Hg] Harumi DeFinis [facility] Work Phone: 11-10-2016 12:36-0500 BSA (Body Surface Area) 2.03 m2 Harumi DeFinis [facility] Work Phone: 11-10-2016 12:36-0500 Height 177.8 cm Harumi DeFinis [facility] Work Phone: 11-10-2016 12:36-0500 Pulse (Heart Rate) 80 /min Harumi DeFinis [facility] Work Phone: 11-10-2016 12:36-0500 Pulse Oximetry 98 % Harumi DeFinis [facility] Work Phone: 11-10-2016 12:36-0500 Respiratory Rate 18 /min Harumi DeFinis [facility] Work Phone: 11-10-2016 12:36-0500 Weight 84.82 kg Harumi DeFinis [facility] Work Phone: Encounters Encounter Date Encounter Type Care Provider Facility Start: 06-11-2023 End: 06-11-2023 Subsequent hospital visit by physician Daisy Murphy APRN-BALANCE CLERK Work Phone: [facility] Procedures Date Procedure Procedure Detail Performing Clinician Start: 03-27-2017 End: 03-27-2017 COMPUTER AIDED DRAFTER Tiago Howell MD Start: 03-27-2017 End: 05-14-2017 Echocardiography Tiago Howell MD Start: 03-27-2017 End: 03-27-2017 Follow Up Appt 1 year Tiago Howell MD Start: 11-10-2016 End: 11-10-2016 Dietary management education, guidance, and counseling Holger Swann Start: 11-10-2016 End: 11-10-2016 Electrocardiogram, complete Tiago Ayala i, MD Start: 11-10-2016 End: 11-10-2016 Follow Up Appt 3 months Cathi Beasley Start: 11-10-2016 End: 11-10-2016 MMM Tiago Howell MD Start: 10-31-2016 Coronary artery bypass graft S/P CABG Holger Swann Start: 10-31-2016 Replacement of aortic valve Aortic valve replacement Holger Swann Plan of Treatment Date Care Activity Detail Author Start: 06-11-2023 End: 06-11-2023 Patient encounter procedure [facility] Start: 06-01-2023 Influenza vaccination INFLUENZA VACC INE (#1) [facility] Start: 06-01-2022 Influenza vaccination INFLUENZA VACC INE (#1) [facility] Start: 05-12-2022 End: 05-12-[address] ANGIO CHEST (NONCORONARY) Imaging Routine Ascending aorta dilation Expected: 05/12/2022, Expires: 05/12/2023 [facility] Immunizations Immunization Date Immunization Notes Care Provider Fa cili 07-21-2019 influenza virus vaccine, unspecified formulation Quinton Haro MD Work Phone: [facility] Payers Date Payer Category Payer Unknown [id number] 2014 Unknown GENERIC PAYOR ME DICARE SUPPLEMENT [id number] 2014-Present [phone] [place] [id number] 2014 Medicare [id number] 2014 Medicare MEDICARE MEDICAR E A AND B [id number] 2014-Present [address] [place] [address] [id number] 1945 Unknown [id number] 1945 Unknown [id number] 1945 Unknown [id number] 1945 Unknown [id number] Social History Date Type Detail Facility [facility]: [facility] End: 10-01-2005 History of tobacco use Current smoker [facility] Start: 05-12-2022 Cigarettes smoked current (pack per day) - Reported 0.5 [facility] Start: 05-12-2022 Tobacco use and exposure Smoke less tobacco non-user [facility] Start: 1945 Sex Assigned At Not on file [facility] End: 10-01-2005 History of tobacco use Cigarette Smoker [facility] Start: 05-12-2022 Tobacco use panel [facility] Instructions 05-12-2022 Patient Instructions Note Date & Type Note Facility 05-12-2022 Instructions Tyrel Bermudez APRN-JOSE - 05/12/2022 2:42 PM EDT Thank you for choosing [facility] Division of Cardiac Surgery [facility] for your cardiac surgical needs. We will plan to see you back in our clinic in 12 months for follow-up with Dr. Haro. In preparation for this appointment, we will need the following testing completed: CT Scan - in 1 year Echocardiogram both now near [place] and again in 1 year. For Questions regarding these appointments or if you need to cancel them, please call [phone] Haro s administrative underwriter. Guidelines for maintaining a healthy and stable Aorta - Blood Pressure Goals: SBP (top number) < 130, DBP (bottom number) < 90, Heart rate < 80. You should monitor these numbers at home on a regular basis. If you notice they are above these recommendations, please see you Primary Doctor (family doctor) or [facility] (heart doctor) right away. Avoid strenuous exercises that causes increased thoracic (chest) pressure - Activities such as weight lifting or exercises that cause you to bear down. If you have SEVERE chest pain or back pain, or feels of tearing/ripping in your chest or arms, please call 911 as this may be an indication that your aneurysm has become unstable and need immediate attention. Make sure to tell the EMS or Emergency Room personnel that you have an AORTIC ANEURYSM. documented in this encounter [facility] History of Present illness Narrative 05-12-2022 PEREZ Bailon - 05/12/2022 1:45 PM EDT Note Date & Type Note Facility 05-12-2022 History of Present illness Narrative Images from the original note were not included. Cardiothoracic Surgery H&P CC Shortness of breath with activity HPI Mr. Young is a 76 y.o. male with a past medical history of COPD, PTSD, HLD, HTN, aortic stenosis s/p AVR and CABG in [address] [place] Howell is their comfort filler in [place], [place], has provided the referral. He presents with symptoms of tiredness, Mild dizziness and SOB going up stairs for the past 1-2 years. They deny fever/chills, lightheadedness/syncope, chest pain, shortness of breath, palpitations, or edema. Home situation- supportive Social: Quit smoking, very little ETOH, no other substance use Urinary symptoms- none Recent blood transfusion?- no never NYHA Classification: [ ] Class I - Cardiac disease, but no symptoms and no limitation in ordinary physical activity, e.g. no shortness of breath when walking, climbing stairs etc. [X ] Class II - Mild symptoms (mild shortness of breath and/or angina) and slight limitation during ordinary activity. [ ] Class III - Marked limitation in activity due to symptoms, even during qnjk-zvyv-wzdbpuht activity, e.g. walking short distances (20-100 m). Comfortable only at rest. [ ] Class IV - Severe limitations. Experiences symptoms even while at rest. Mostly bedbound patients. Past Medical History Past Medical History: Diagnosis Date COPD (chronic obstructive pulmonary disease) Depression Hypertension PTSD (post-traumatic stress disorder) Past Surgical History: Procedure Laterality Date CORONARY ARTERY BYPASS GRAFT 2016 AORTIC VALVE REPLACEMENT 2015 OTHER SURGICAL Gland removal OTHER SURGICAL Multiple tooth pulls, false teeth VASECTOMY Family History No family history on file. Social History reports that he quit smoking about 16 years ago. He has a 15.00 pack-year smoking history. He has never used smokeless tobacco. No history on file for alcohol use and drug use. Social History Tobacco Use Smoking Status Former Smoker Packs/day: 0.50 Years: 30.00 Pack years: 15.00 Quit date: 2005 Years since quittin.6 Smokeless Tobacco Never Used Social History Substance and Sexual Activity Alcohol Use None Allergies No Known Allergies Current Medication Current Outpatient Medications Medication Sig Dispense Refill Aspirin (Aspirin 81) [address] tablet Take 81 mg by mouth daily. atorvastatin 40 MG tablet Take 40 mg by mouth daily. hydroCHLOROthiazide 25 MG tablet Take 25 mg by mouth daily. lisinopril 20 MG tablet Take 20 mg by mouth daily. pantoprazole Sodium 40 MG Pack Take 40 mg by mouth every morning before breakfast. PARoxetine 20 MG tablet Take 20 mg by mouth daily. Potassium 99 MG tablet Take by mouth. No current facility-administered medications for this visit. Physical Exam Vitals: 05/12/22 1326 BP: 95/54 Pulse: 51 Weight: 88.9 kg (196 lb) Height: 1.778 m (5' 10 ) General appearance: alert, cooperative, appears stated age Lungs: clear bilaterally Heart: regular rate and rhythm, no murmur noted Abdomen: soft, rounded Extremities: no lower extremity edema. Pulses: radial 2+ and symmetric Skin: Warm and dry. Musculoskeletal: gait is coordinated and symmetrical Neurologic: no gross focal deficits noted. Psych: appropriate mood and affect for clinical situation Right Groin Site: no erythema, excoriation or skin breakdown noted Left Groin Site: no erythema, excoriation or skin breakdown noted Bilateral breast folds: no erythema, excoriation or skin breakdown noted Sternum: no erythema, excoriation or skin breakdown noted Diagnostic Results/Procedures- Reviewed with Dr. Haro Prior echo and stress test in 03/2020 Normal stress echo 01/03/22 CT RECOMMENDATIONS: Patient evaluated with Dr. Haro and given the above data, Guilherme Young would benefit from echocardiogram to evaluate valve function. Followed by echo and CTA in 1 year with visit for surveillance. OPEN HEART SURGERY - STAFF NOTE Guilherme Young is a 76 y.o. male with a 50 mm ascending aorta following CAB 2 AVR (tissue) in [place] in 2016 who I had the pleasure of seeing today, in the company of his Daria with my advanced practice provider, Tyrel Bermudez APRN, CNP. They drove up from the [place] area about 1 1/2 h away. The patient was referred to me for aortic and aortic valve triaging. 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 I have physically seen the patient and reviewed the patient's history, medications, and current complaints. Please see Tyrel Bermudez APRN, CNP note for details regarding these. I have personally reviewed the imaging in regards to this issue and results are as follows: Echocardiogram: dated 28 April 2020 - NOT RECENT shows JUDSON 45 mm, ESD 27 mm, IVS 11 mm, aortic root 46 mm. There is no MR, no AI and no TR. The EF is 55 %. Cardiac Catheterization: dated no available and not after the cabg CT: dated December 2021 shows a 50 mm ascending aorta and heavy calcification of the origins of the great vessels. The CT is non-contrast. IMPRESSION: Guilherme Young is a 76 y.o. male with 50 mm ascending aorta. This is in the setting of previous sternotomy AVR / CAB 2. He has fatigue, dyspnea and light-headedness with activity and warrants investigation for structural valve deterioration (). RECOMMENDATIONS: I would recommend echocardiogram (this can be done closer to home) and repeat CTA and echo in a year here. We spoke about indications for surgery (for him the aorta would have to be closer to 6 cm in light of his reoperative requirement) and the need to investigate the possibility of of the tissue aortic valve. Many thanks for referring him to the [facility] at [facility]. Geoffrey Haro MD, MSc, [facility], [facility] organic section technical lead Drink Box Mechanic, [facility] Division of Cardiac Surgery [facility] [address] [place] [address] / [phone] (fax) [email or web address] in this encounter [facility] Evaluation note Note Date & Type Note Facility documented in this encounter [facility] Summary Purpose Family History No Family History Records FoundNo Family History Records FoundNo Family History Records FoundNo Family History Records Found Advance Directives No Advanced Directives Records FoundNo Advanced Directives Records FoundNo Advanced Directives Records FoundNo Advanced Directives Records Found Reason for Referral Specialty Diagnoses / Procedures Referred By Contac t Referred To Contact Diagnoses Ascending aorta dilation Procedures ECHOCARDIOGRAM AR ECHO HEART XTHORACIC,COMPLETE W DOPPLER Tyrel Bermudez APRN-CNP [address] [place] [address] Referral ID Status Reason Start Date Expiration Date V isits Requested Visits Authorized [id number] New Request 05/12/2022 06/06/2023 1 1 Specialty Diagnoses / Procedures Referred By Jesica hui Referred To Contact Diagnoses Ascending aorta dilation Procedures CT ANGIO CHEST (NONCORONARY) AR CT ANGIO, CHEST (NON-CORON), COMBO, INCL IMG PROC Tyrel Bermudez, TREE PLANTER-BALANCE CLERK [address] [place] [address] Referral ID Status Reason Start Date Expiration Date V isits Requested Visits Authorized [id number] New Request 05/12/2022 06/06/2023 1 1 Referral ID Status Reason Start Date Expiration Date V isits Requested Visits Authorized [id number] New Request 05/12/2022 06/06/2023 1 1 Additional Source Comments (unrecognized sect ion and content) No Status Records FoundNo Status Records FoundNo Status Records FoundNo Status Records Found INFORMATION SOURCE (unrecogn ized section and content) DATE CREATED AUTHOR AUTHOR'S ORGANIZ ATION 12/10/2019 [facility] DATE CREATED AUTHOR AUTHOR'S ORGANIZ ATION 04/06/2023 [facility] DATE CREATED AUTHOR AUTHOR'S ORGANIZ ATION 06/18/2023 [facility] Reason for Visit (unrecogniz ed section and content) Specialty Diagnoses / Procedures Referred By Contac t Referred To Contact Diagnoses Ascending aorta dilation Procedures CT ANGIO CHEST (NONCORONARY) AR CT ANGIO, CHEST (NON-CORON), COMBO, INCL IMG PROC Tyrel Bermudez, TREE PLANTER-BALANCE CLERK [address] [place] [address] Referral ID Status Reason Start Date Expiration Date V isits Requested Visits Authorized [id number] Pending Review 05/12/2022 06/06/2023 1 1 Specialty Diagnoses / Procedures Referred By Contac t Referred To Contact Diagnoses Aneurysm of ascending aorta without rupture Procedures CT ANGIO CHEST (NONCORONARY) AR CT ANGIO, CHEST (NON-CORON), COMBO, INCL IMG PROC Daisy Murphy, TREE PLANTER-BALANCE CLERK [address] [place] [address] Referral ID Status Reason Start Date Expiration Date V isits Requested Visits Authorized [id number] New Request 05/09/2023 06/02/2024 1 1 FOR RECORDS PERTAINING TO PATIENTS WHO ARE OR HAVE BEEN ENROLLED IN A CHEMICAL DEPENDENCY/SUBSTANCEABUSE PROGRAM, SOME INFORMATION MAY BE OMITTED. This clinical summary was aggregated from multiple sources. Caution should be exercised in using it in the provision of clinical care. This summary normalizes information from multiple sources, and as a consequence, information in this document may materially change the coding, format and clinical context of patient data. In addition, data may be omitted in some cases. CLINICAL DECISIONS SHOULD BE BASED ON THE PRIMARY CLINICAL RECORDS. [facility] [employer] [facility] provides no warranty or guarantee of the accuracy or completeness of information in this document.
[2023-10-15 18:27] LABS: Anion Gap 5 (5-15); BUN 16 mg/dL (7-18); BUN/Creat Ratio 11.6 RATIO (10-20); Calcium,Total 9.5 mg/dL (8.5-10.1); Chloride 108 mmol/L (98-107); Creatinine, Serum 1.38 mg/dL (0.70-1.30); EST Glomerular Filtration Rate 53 mL/min (>60); Est Glom Filt Rate - Afr Amer 64 mL/min (>60); Estimated Creatinine Clearance 51.54 ml/min; Glucose 88 mg/dL (74-106); Potassium 3.7 mmol/L (3.5-5.1); Sodium Level 142 mmol/L (136-145)
[2023-10-15 18:54] VITALS: BP 145/79; PULSE 78; RESP 24; O2SAT 95
--- NOTE | 2023-10-15 19:02 | EX.ED.DYSGE1 ---
HPI History of Present Illness Chief Complaint: Shortness of Breath Informant: patient Narrative Narrative: 78-year-old male with a history of COPD presenting to the emergency department with dyspnea. Patient was in [place] for about a month returning to beginning August. When he came back to the [facility] he was brought to the emergency department with dyspnea had negative CTA. States he really has not felt like his lungs return back to baseline since then. [facility] [place] [facility] appointment later this month. He notes some intermittent green phlegm. EMS was called today for worsening shortness of breath. He was found to be hypoxic and tripoding. They administered supplemental oxygen and breathing treatments with significantly improved the patient. Patient states that he has not been on any steroids since August and states that prednisone he cannot take due to side effects. No reported fever. Patient has an albuterol MDI and takes 2 Tropium daily. He does not have a nebulizer. He does not use oxygen at home. [facility] Medical History Anxiety Arthritis Atherosclerotic heart disease of [place] coronary artery without angina pectoris Back pain Chronic cough COPD (chronic obstructive pulmonary disease) Depression Essential (primary) hypertension Former smoker Hallucination, drug-induced History of colon polyps History of non-ST elevation myocardial infarction (NSTEMI) (08/2016) Hyperlipidemia Intractable back pain Leg cramps Lumbar stenosis Non-rheumatic aortic stenosis Sciatica Shortness of breath on exertion Thoracic aortic aneurysm (TAA) Wears dentures Wears glasses Wears hearing aid Home Medications aspirin 81 mg chewable tablet 81 mg PO DAILY@0800 09/04/16 [Rx Last Taken Unknown] tiotropium bromide 2.5 mcg/actuation mist for inhalation (Spiriva Respimat) 2 inh inhalation QAM 04/19/21 [History Last Taken Unknown] pantoprazole 40 mg tablet,delayed release 40 mg PO DAILY 03/13/22 [History Last Taken Unknown] paroxetine HCl 20 mg tablet 20 mg PO DAILY 03/13/22 [History Last Taken Unknown] potassium 99 mg tablet 99 mg PO DAILY 03/29/22 [History Last Taken Unknown] acetaminophen 325 mg capsule (Tylenol) 650 mg PO Q6H PRN Pain 05/26/22 [History Last Taken Unknown] atorvastatin 40 mg tablet 40 mg PO QHS #90 tabs 11/16/22 [Rx Last Taken Unknown] hydrochlorothiazide 25 mg tablet 25 mg PO DAILY #90 tabs 11/16/22 [Rx Last Taken Unknown] lisinopril 20 mg tablet 20 mg PO QDAY #90 tabs 11/16/22 [Rx Last Taken Unknown] azithromycin 250 mg tablet 250 mg PO DAILY #4 TABLETS 09/08/23 [Rx Last Taken Unknown] dexamethasone 6 mg tablet 9 mg (1.5 x 6 mg) PO DAILY 5 days #8 tabs 09/08/23 [Rx Last Taken Unknown] Allergy/AdvReac Type Severity Reaction Status Date / Time cyclobenzaprine AdvReac Other Verified 09/07/23 19:37 hydrocodone [From [place]] AdvReac Hallucinati Verified 09/07/23 19:37 ons oxycodone AdvReac Hallucinati Verified 09/07/23 19:37 ons prednisone AdvReac Other Verified 09/07/23 19:37 Family History Father CAD (coronary artery disease) Brother CAD (coronary artery disease) Mother Cancer Brother Cancer Brother Cancer Surgical History H/O coronary artery bypass surgery (10/11/16) History of aortic valve replacement (10/11/16) History of left heart catheterization (09/02/16) Hx of colonoscopy Hx of surgical procedure Social History Smoking Status: Former smoker alcohol intake: never caffeine: Yes Type: coffee Number of servings: 3 ROS ROS ED Constitutional Constitutional ED: Denies chills, fever(s) or weight loss Eyes Eyes: Denies change in vision or diplopia ENT ENT ED: Denies ear pain, rhinorrhea or sore throat Cardiovascular Cardiovascular: Denies chest pain, orthopnea, palpitations or racing heartbeat Respiratory/Chest Respiratory/Chest: Reports cough, dyspnea, dyspnea on exertion and sputum; Denies orthopnea Gastrointestinal Gastrointestinal: Denies abdominal pain, diarrhea, nausea or vomiting Genitourinary Genitourinary ED: Denies dysuria, hematuria or urinary frequency Musculoskeletal Musculoskeletal: Denies arthralgias or myalgias Integumentary Denies abscess or rash Neurologic Neurologic: Denies headache(s) or weakness Psychiatric Psychiatric: Denies anxiety, depression, suicidal ideation or suicidal thoughts Endocrine Endocrinology: Denies polydipsia, polyphagia or polyuria Allergic/Immunologic Allergic/Immunologic ED: Denies mouth swelling, tongue swelling or urticaria EXAM Physical Exam Const Vital Signs: 10/15/23 17:34 10/15/23 17:37 10/15/23 17:46 Temperature 97.5 F L Temperature Source Temporal Pulse Rate 69 68 Respiratory Rate 16 16 Respiratory Effort Short of Breath Respiratory Depth Shallow Respiratory Pattern Normal Blood Pressure 160/94 H Blood Pressure Mean 116 Pulse Ox 98 Oxygen Delivery Method Nasal Cannula Nasal Cannula Oxygen Flow Rate (L/min) 2 1 10/15/23 18:54 Temperature Temperature Source Pulse Rate 78 Respiratory Rate 24 H Respiratory Effort Respiratory Depth Respiratory Pattern Blood Pressure 145/79 H Blood Pressure Mean 101 Pulse Ox 95 Oxygen Delivery Method Oxygen Flow Rate (L/min) Positive well nourished and well developed General Appearance ED: well developed HEENT Reports normocephalic, head/scalp atraumatic and moist mucous membranes Eyes PERRL and EOMs intact bilaterally Neck no lymphadenopathy, supple and no JVD Resp Auscultation: wheezes expiratory wheezes and inspiratory wheezes Cardio regular rate, regular rhythm and no murmurs GI normal to inspection, nondistended, normoactive bowel sounds and non-tender Palpation: soft Back/Spine no CVA tenderness and normal ROM Extremity normal to inspection General Extremety ED: Negative for edema General Extremity: Negative for edema Neuro oriented x3 and CN's II-XII intact bilaterally Sensorium / Orientation: alert Motor Exam: strength 5/5 throughout Psych mental status grossly normal Mood & Affect: Negative for depressed or tearful Skin no rashes or lesions noted and no wounds MDM MDM MDM Narrative Medical decision making narrative: My independent interpretation of the chest x-ray is no acute process. White count 8.7 hemoglobin 13.3. CO2 of 29 which I suspect is lower than his baseline due to his tachypnea. Creatinine 1.38. I was able to wean him off of oxygen. He received another albuterol aerosol as well as Solu-Medrol. He was ambulated and desaturates to 89% but he begins to have significant work of breathing by the time he gets back to the room. He recovered slowly with time. At this point I think the patient should be admitted for further care. Patient's blood pressure is improving. His EKG is nonischemic and his symptoms are more pulmonary in nature. I doubt that this is ACS. History & Record Review Discussion w/independent historian: EMS personnel and Patient Additional record(s) reviewed:: Prior ED visit and Prior labs Lab Data Attestation: I reviewed the patient's lab results. Labs: Laboratory Results - last 24 hr 10/15/23 17:47 WBC 8.7 RBC 4.35 L Hgb 13.3 Hct 40.9 MCV 94.0 MCH 30.6 MCHC 32.5 RDW Std Deviation 41.2 RDW Coeff of Alyssa 11.9 Plt Count 155 MPV 10.1 Immature Gran % (Auto) 0.300 Neut % (Auto) 52.9 Lymph % (Auto) 22.2 Branch % (Auto) 8.3 Eos % (Auto) 15.3 H Baso % (Auto) 1.0 Absolute Neuts (auto) 4.6 Absolute Lymphs (auto) 1.93 Nucleated RBC % 0 Sodium 142 Potassium 3.7 Chloride 108 H Carbon Dioxide 29.0 Anion Gap 5 BUN 16 Creatinine 1.38 H Estim Creat Clear Calc 51.54 Est GFR (MDRD) Af Amer 64 Est GFR (MDRD) Non-Af 53 L BUN/Creatinine Ratio 11.6 Glucose 88 Calcium 9.5 Radiography Diagnostic Testing: Clinical Impression(s) from Imaging Studies Chest X-Ray 10/15/23 18:05 IMPRESSION: Mild hyperinflation. No acute cardiopulmonary pathology Electronically Signed: Jace Gallego MD at 18:46 EST Reading Location ID and State: [facility] / [place] Tel , Service support , EKG Initial EKG: Attestation: I personally reviewed and interpreted this EKG as follows: Comments: Normal sinus rhythm ventricular rate of 65 bpm. No concerning features of ACS. Management Discussion w/another healthcare provider: Hospitalist Discharge Plan Dx/Rx/DC Orders Clinical Impression: Essential (primary) hypertension, Atherosclerotic heart disease of [place] coronary artery without angina pectoris, Acute exacerbation of chronic obstructive pulmonary disease Disposition Disposition: [facility] Capacity Legal [employer] Lines Person Reflex Medical hold order details:: IF a medical hold is selected below, a suggested order for a MEDICAL HOLD will reflex upon signing the document. Next of kin: [place] law dictates a PRIORITY LIST for identifying legal decision-maker/legal next of kin in the following order (LNOK): 1st: The patient?s legal guardian, if any 2nd: The patient's spouse (if status is questionable, consult Risk Management) 3rd: The patient?s adult child(dana) (majority, if multiple children) 4th: The patient?s parents 5th: The patient?s adult siblings (majority, if multiple children siblings)
--- NOTE | 2023-10-15 19:04 | HP.PCM.HOS_ITS ---
[facility] - General General Date of Admission: 10/15/23 Date of Service: 10/15/23 Chief Complaint: SOB and Wheezing. HPI Narrative PURA YOUNG, is a 78 M with a past medical history of essential hypertension, hyperlipidemia, overweight; with BMI of 29.6 this admission, history of AVR (2016), history of CAD; s/p CABG x 2 (2016), history of thoracic aortic aneurysm (2021), history of lumbar stenosis, history of sciatica, depression, GERD and history of tobacco abuse (quit 2006); with subsequent COPD followed by pulmonology at the [facility] in [place], [place] who presents to [facility] ER complaining of SOB and wheezing. Mr. Young reports his symptoms began approximately September 07, 2023 with the gradual-onset of LOPES that progressed to SOB at rest. He also admits to a frequent cough productive of greenish-yellow sputum. Then earlier today his wheezing worsened with hypoxia and tripoding resulting in EMS activation. He told the ER that he has an allergy to prednisone that causes hallucinations but after speaking with the patient and his they actually meant to say Oxycodone; the pain medication - which causes him hallucinations. He denies using oxygen at home. He recently went for about a month long trip to [place] and returned in early August 2023 and he states he never felt like he was able to make it back to his baseline. He denies related fever, chills, nausea, vomiting, chest pain or palpitations. In the ER he was diagnosed with AE COPD complicated by clinical evidence of acute hypoxic respiratory insufficiency and he was then admitted to the general medical floor for ongoing care for a stay that is expected to be greater than 48 hours. [facility] Medical History Anxiety Arthritis Atherosclerotic heart disease of [place] coronary artery without angina pectoris Back pain Chronic cough COPD (chronic obstructive pulmonary disease) Depression Essential (primary) hypertension Former smoker Hallucination, drug-induced History of colon polyps History of non-ST elevation myocardial infarction (NSTEMI) (08/2016) Hyperlipidemia Intractable back pain Leg cramps Lumbar stenosis Non-rheumatic aortic stenosis Sciatica Shortness of breath on exertion Thoracic aortic aneurysm (TAA) Wears dentures Wears glasses Wears hearing aid Home Medications aspirin 81 mg chewable tablet 81 mg PO DAILY@0800 09/04/16 [Rx Last Taken Unknown] tiotropium bromide 2.5 mcg/actuation mist for inhalation (Spiriva Respimat) 2 inh inhalation QAM 04/19/21 [History Last Taken Unknown] pantoprazole 40 mg tablet,delayed release 40 mg PO DAILY 03/13/22 [History Last Taken Unknown] paroxetine HCl 20 mg tablet 20 mg PO DAILY 03/13/22 [History Last Taken Unknown] potassium 99 mg tablet 99 mg PO DAILY 03/29/22 [History Last Taken Unknown] acetaminophen 325 mg capsule (Tylenol) 650 mg PO Q6H PRN Pain 05/26/22 [History Last Taken Unknown] atorvastatin 40 mg tablet 40 mg PO QHS #90 tabs 11/16/22 [Rx Last Taken Unknown] hydrochlorothiazide 25 mg tablet 25 mg PO DAILY #90 tabs 11/16/22 [Rx Last Taken Unknown] lisinopril 20 mg tablet 20 mg PO QDAY #90 tabs 11/16/22 [Rx Last Taken Unknown] azithromycin 250 mg tablet 250 mg PO DAILY #4 TABLETS 09/08/23 [Rx Last Taken Unknown] dexamethasone 6 mg tablet 9 mg (1.5 x 6 mg) PO DAILY 5 days #8 tabs 09/08/23 [Rx Last Taken Unknown] Allergy/AdvReac Type Severity Reaction Status Date / Time cyclobenzaprine AdvReac Other Verified 09/07/23 19:37 hydrocodone [From [place]] AdvReac Hallucinati Verified 09/07/23 19:37 ons oxycodone AdvReac Hallucinati Verified 09/07/23 19:37 ons prednisone AdvReac Other Verified 09/07/23 19:37 Family History Father CAD (coronary artery disease) Brother CAD (coronary artery disease) Mother Cancer Brother Cancer Brother Cancer Surgical History H/O coronary artery bypass surgery (10/11/16) History of aortic valve replacement (10/11/16) History of left heart catheterization (09/02/16) Hx of colonoscopy Hx of surgical procedure Social History Smoking Status: Former smoker alcohol intake: never caffeine: Yes Type: coffee Number of servings: 3 ROS ROS Narrative Review of systems: General: Patient denies fevers or chills. HENT: Denies headache, denies stuffy nose, denies sore throat EYES: Denies changes in vision Resp: Patient admits to shortness of breath and wheezing with frequent cough productive of yellowish-green sputum. Cardiac: Denies chest pain or palpitations. GI: Denies abdominal pain, denies changes in bowel : Denies changes in urination. Extremity: Denies swelling. Musculoskeletal: Feels somewhat generally weak and unwell. Neuro: Denies any numbness/tingling. Heme: Denies easy bleeding or bruising. Skin: Denies rashes. Psychiatric: No complaints voiced due to uncontrolled depression or anxiety. Endocrine: No polyuria, polyphagia or polydipsisa. The rest of the 14 point ROS was negative except for positives in HPI. Vital Signs Vital Signs Vital Signs: 10/15/23 17:34 10/15/23 17:37 10/15/23 17:46 Temperature 97.5 F L Temperature Source Temporal Pulse Rate 69 68 Respiratory Rate 16 16 Respiratory Effort Short of Breath Respiratory Depth Shallow Respiratory Pattern Normal Blood Pressure 160/94 H Blood Pressure Mean 116 Pulse Ox 98 Oxygen Delivery Method Nasal Cannula Nasal Cannula Oxygen Flow Rate (L/min) 2 1 10/15/23 18:54 Temperature Temperature Source Pulse Rate 78 Respiratory Rate 24 H Respiratory Effort Respiratory Depth Respiratory Pattern Blood Pressure 145/79 H Blood Pressure Mean 101 Pulse Ox 95 Oxygen Delivery Method Oxygen Flow Rate (L/min) Weight Weight: 206 lb 9.17 oz Body Mass Index (BMI) 29.6 Physical Exam Const alert, oriented x3 and average body habitus General Appearance: cooperative HEENT normocephalic, head/scalp atraumatic, hearing grossly normal bilaterally, moist oral mucous membranes and oropharynx normal Eyes PERRL, EOMs intact bilaterally and conjunctivae normal Neck no lymphadenopathy and supple Resp Resp Narrative: Diminished air movement throughout with scattered wheezing. Auscultation: wheezes Cardio regular rate and regular rhythm GI normal to inspection, nondistended, normoactive bowel sounds, soft to palpation, non-tender and non-distended Extremity normal to inspection, full ROM and no clubbing, cyanosis or edema Skin Skin Narrative: Patient has no evidence of rash at this time. Neuro oriented x3, CN's II-XII intact bilaterally, moves all extremities and no focal motor deficits Sensorium / Orientation: awake, alert, oriented to person, oriented to place and oriented to time Speech: speech normal Motor Exam: strength 5/5 throughout Psych affect normal Results Medical Records Data Attestation: I reviewed the patient's medical records Lab / Micro Data Attestation: I reviewed the patient's lab results. 10/15/23 17:47 10/15/23 17:47 Labs: Laboratory Results - last 24 hr 10/15/23 17:47: WBC 8.7, RBC 4.35 L, Hgb 13.3, Hct 40.9, MCV 94.0, MCH 30.6, MCHC 32.5, RDW Std Deviation 41.2, RDW Coeff of Alyssa 11.9, Plt Count 155, MPV 10.1, Immature Gran % (Auto) 0.300, Neut % (Auto) 52.9, Lymph % (Auto) 22.2, [place] % (Auto) 8.3, Eos % (Auto) 15.3 H, Baso % (Auto) 1.0, Absolute Neuts (auto) 4.6, Absolute Lymphs (auto) 1.93, Nucleated RBC % 0, Sodium 142, Potassium 3.7, Chloride 108 H, Carbon Dioxide 29.0, Anion Gap 5, BUN 16, Creatinine 1.38 H, Estim Creat Clear Calc 51.54, Est GFR (MDRD) Af Amer 64, Est GFR (MDRD) Non-Af 53 L, BUN/Creatinine Ratio 11.6, Glucose 88, Calcium 9.5 Imagaing Radiology Impression Chest X-Ray 10/15/23 18:05 IMPRESSION: Mild hyperinflation. No acute cardiopulmonary pathology Electronically Signed: Jace Gallego MD at 18:46 EST , Assessment & Plan Assessment/Plan (1) Acute exacerbation of chronic obstructive pulmonary disease: (2) Respiratory insufficiency: PLAN: Plan 1. Acute exacerbation of COPD (complicated by alleged allergy to Prednisone which causes hallucinations) - Admit to general medical floor. Continue s teroids and nebulizers plus give IV Doxycycline. Give Tylenol prn pain or fever. 2. Acute hypoxic respiratory insufficiency due to #1 - Wean supplemental oxygen as tolerated. 3. Essential hypertension - Continue home regimen plus give prn IV Hydralazine for systolic blood pressure > 160 mm Hg. 4. Hyperlipidemia - Resume statin as previous. 5. Overweight; with BMI of 29.6 this admission - Weight loss will be recommended. Check TSH. 6. History of AVR (2016) - Noted. 7. History of CAD; s/p CABG x 2 (2016) - Stable. 8. History of thoracic aortic aneurysm (2021) - Noted. 9. History of lumbar stenosis - Noted. 10. History of sciatica - Stable. 11. Depression - Continue Paroxetine as previous. 12. GERD - Resume PPI. 13. DVT prophylaxis - Lovenox 40 mg subcu daily. Total time: Approximately 55 minutes. Charges/Coding Visit Charges Inpatient E&M: 75778 Init Hosp L2
[2023-10-15 19:54] VITALS: BP 145/79; PULSE 85; RESP 18; TEMP 36.6; O2SAT 95
--- OUTSIDE RECORDS SUMMARY | 2023-10-15 20:19 | XMS RPT_ITS | CCD ---
Author Name Unknown Address [address] [place] [address] Organization [facility] Care Team Providers Care Substitute Teacher Name Role Phone Sobia Phillips RN Unavailable [...] MURPHY Referring Unavailable DAISY MURPHY Attending Unavailable TYREL BERMUDEZ Referring Unavailable TYREL BERMUDEZ Attending Unavailable [...] PERCOCET 5-325 MG TABS as directed OXYCODONE-ACETAMINOP [facility] [id number] Tiago Howell MD Problems Active Problems Problem Classification Problem Date Documented Date Episodic/Chronic Acute myocardial infarction (4 sources) Non-ST elevation (NSTEMI) myocardial infarction; Translations: [Non-ST elevation (NSTEMI) myocardial infarction] Onset: 11-08-2016 11-08-2016 Chronic Aortic; peripheral; and visceral artery aneurysms (4 sources) Ascending aorta dilatation; Translations: [Thoracic aortic ectasia] Onset: 05-12-2022 Chronic Coronary atherosclerosis and other heart disease (4 sources) Atherosclerotic heart disease of [place] coronary artery without angina pectoris; Translations: [Atherosclerotic heart disease of [place] coronary artery without angina pectoris] Onset: 10-31-2016 [...] (2 sources) Long-term drug therapy; Translations: [Other chcf (current) drug therapy] Onset: 11-08-2016 11-08-2016 Past or Other Problems Problem Classification Problem Date Documented Da te Episodic/Chronic Coronary atherosclerosis and other heart disease (4 sources) Presence of aortocoronary bypass graft; Translations: [Presence of aortocoronary bypass graft] Onset: 10-31-2016 11-10-2016 Episodic Nonspecific chest pain (8 sources) Chest pain; Translations: [Chest pain, unspecified] Onset: 09-11-2016 Resolved: 11-10-2016 11-10-2016 Episodic Other aftercare (2 sources) Other long term care social worker (current) drug therapy; Translations: [Other chcf (current) drug therapy] Onset: 11-08-2016 11-08-2016 Episodic [...] 177.8 cm Quinton Haro MD Work Phone: [facility] 05-12-2022 13:26-0400 Body mass index (BMI) [Ratio] 28.12 kg/m2 Quinton Haro MD Work Phone: [facility] 05-12-2022 13:26-0400 Body weight 88.91 kg Quinton Haro MD Work Phone: [facility] 05-12-2022 13:26-0400 Diastolic blood pressure 54 mm[Hg] Quinton Haro MD Work Phone: [facility] 05-12-2022 13:26-0400 Heart rate 51 /min Quinton Haro MD Work Phone: [facility] 05-12-2022 13:26-0400 Systolic blood pressure 95 mm[Hg] Quinton Haro MD Work Phone: [facility] 03-27-2017 13:33-0400 BMI (Body Mass Index) [...] 13:33-0400 Respiratory Rate 20 /min Neisha Rajput [facility] Work Phone: 03-27-2017 13:33-0400 Weight 88.91 kg Neisha Rajput [facility] Work Phone: 11-10-2016 13:55-0500 Heart rate 59 /min Harsanthosh DeFinis [facility] Work Phone: 11-10-2016 12:36-0500 BMI (Body Mass Index) 26.83 kg/m2 Harumi DeFinis [facility] Work Phone: 11-10-2016 12:36-0500 BP Diastolic 60 mm[Hg] Harumi DeFinis [facility] Work Phone: 11-10-2016 12:36-0500 BP Systolic 140 mm[Hg] Harumi DeFinis [facility] Work Phone: 11-10-2016 12:36-0500 BSA (Body Surface Area) 2.03 m2 Harumi DeFinis [facility] Work Phone: 11-10-2016 12:36-0500 Height 177.8 cm Harumi DeFinis [facility] Work Phone: 11-10-2016 12:36-0500 Pulse (Heart Rate) 80 /min Harumi DeFinis [facility] Work Phone: 11-10-2016 12:36-0500 Pulse Oximetry 98 % Harumi DeFinis [facility] Work Phone: 11-10-2016 12:36-0500 Respiratory Rate 18 /min Harumi DeFinis [facility] Work Phone: 11-10-2016 12:36-0500 Weight 84.82 kg Harumi DeFinis [facility] Work Phone: Encounters Encounter Date Encounter Type Care Provider Facility Start: 06-11-2023 End: 06-11-2023 Subsequent hospital visit by physician Daisy Murphy APRN-PROGRAM MANAGEMENT MANAGER Work Phone: [facility] [place] Procedures Date Procedure Procedure Detail Performing Clinician Start: 03-27-2017 End: 03-27-2017 CHIEF CHEMIST Tiago Howell MD Start: 03-27-2017 End: 05-14-2017 Echocardiography Tiago Howell MD Start: 03-27-2017 End: 03-27-2017 Follow Up Appt 1 year Tiago Howell MD Start: 11-10-2016 End: 11-10-2016 Dietary management education, guidance, and counseling Holger Swann Start: 11-10-2016 End: 11-10-2016 Electrocardiogram, complete Tiago Ayala i, MD Start: 11-10-2016 End: 11-10-2016 Follow Up Appt 3 months Cathi Beasley Start: 11-10-2016 End: 11-10-2016 MMM Tiago Hoewll MD Start: 10-31-2016 Coronary artery bypass graft S/P CABG Holger Swann Start: 10-31-2016 Replacement of aortic valve Aortic valve replacement Holger Swann Plan of Treatment Date Care Activity Detail Author Start: 06-11-2023 End: 06-11-2023 Patient encounter procedure [facility] [place] Start: 06-01-2023 Influenza vaccination INFLUENZA VACC INE (#1) [facility] Start: 06-01-2022 Influenza vaccination INFLUENZA VACC INE (#1) [facility] Start: 05-12-2022 End: 05-12-[address] ANGIO CHEST (NONCORONARY) Imaging Routine Ascending aorta dilation Expected: 05/12/2022, Expires: 05/12/2023 [facility] Immunizations Immunization Date Immunization Notes Care Provider Fa cili 07-21-2019 influenza virus vaccine, unspecified formulation Quinton Haro MD Work Phone: [facility] Payers Date Payer Category Payer Unknown [id number] 2014 Unknown GENERIC PAYOR ME DICARE SUPPLEMENT [id number] 2014-Present [phone] [place] [id number] 2014 Medicare [id number] 2014 Medicare MEDICARE MEDICAR E A AND B [id number] 2014-Present [address] [place] [address] [id number] 1945 Unknown [id number] 1945 Unknown [id number] 1945 Unknown [id number] 1945 Unknown [id number] Social History Date Type Detail Facility Start: 05-12-2022 [facility] End: 10-01-2005 History of tobacco use Current smoker [facility] Start: 05-12-2022 Cigarettes smoked current (pack per day) - Reported 0.5 [facility] Start: 05-12-2022 Tobacco use and exposure Smoke less tobacco non-user [facility] Start: 1945 Sex Assigned At Not on file [facility] End: 10-01-2005 History of tobacco use Cigarette Smoker [facility] Start: 05-12-2022 Tobacco use panel [facility] Instructions 05-12-2022 Patient Instructions Note Date & Type Note Facility 05-12-2022 Instructions Tyrel Bermudez APRN-JOSE - 05/12/2022 2:42 PM EDT Thank you for choosing [facility] s Division of Cardiac Surgery & The [facility] for your cardiac surgical needs. We will plan to see you back in our clinic in 12 months for follow-up with Dr. Haro. In preparation for this appointment, we will need the following testing completed: CT Scan - in 1 year Echocardiogram both now near [place] and again in 1 year. For Questions regarding these appointments or if you need to cancel them, please call [phone] Haro s corporate administrative assistant. Guidelines for maintaining a healthy and stable Aorta - Blood Pressure Goals: SBP (top number) < 130, DBP (bottom number) < 90, Heart rate < 80. You should monitor these numbers at home on a regular basis. If you notice they are above these recommendations, please see you Primary Doctor (family doctor) or Interlocking Machine Operator (heart doctor) right away. Avoid strenuous exercises [...] AORTIC ANEURYSM. documented in this encounter [facility] History of Present illness Narrative 05-12-2022 PEREZ [...] s/p AVR and CABG in [address] [place] Howell is their hooker off in [place], [place], has provided the referral. He presents [...] in activity due to symptoms, even during sgnl-rkqs-nrrijtbr activity, e.g. walking short distances (20-100 m). [...] aorta following CAB 2 AVR (tissue) in [place] in 2016 who I had the pleasure of seeing today, in the company of his Daria with my advanced practice provider, Tyrel Bermudez APRN, CNP. They drove up from the [place] area about 1 1/2 h away. The [...] him to the [facility] at the [facility]. Geoffrey Haro MD, MSc, [facility], [facility] network systems operator Rubber Moulding Machine Operator, [facility] Division of Cardiac Surgery [facility] [address] [place] [address] / [phone] (fax) [email or web address] documented in this encounter [facility] Evaluation note Note Date & Type Note Facility documented in this encounter [facility] Summary Purpose Family History No Family History Records FoundNo Family History Records FoundNo Family History Records FoundNo Family History Records Found Advance Directives No Advanced Directives Records FoundNo Advanced Directives Records FoundNo Advanced Directives Records FoundNo Advanced Directives Records Found Reason for Referral Specialty Diagnoses / Procedures Referred By Contac t Referred To Contact Diagnoses Ascending aorta dilation Procedures ECHOCARDIOGRAM OR ECHO HEART XTHORACIC,COMPLETE W DOPPLER Tyrel Bermudez APRN-CNP [address] [place] [address] Referral ID Status Reason Start Date Expiration Date V isits Requested Visits Authorized [id number] New Request 05/12/2022 06/06/2023 1 1 Specialty Diagnoses / Procedures Referred By Jesica hui Referred To Contact Diagnoses Ascending aorta dilation Procedures CT ANGIO CHEST (NONCORONARY) OR CT ANGIO, CHEST (NON-CORON), COMBO, INCL IMG PROC Tyrel Bermudez, INVESTIGATOR FRAUD-PROGRAM MANAGEMENT MANAGER [address] [place] [address] Referral ID Status Reason Start Date Expiration Date V isits Requested Visits Authorized [id number] New Request 05/12/2022 06/06/2023 1 1 Referral ID Status Reason Start Date Expiration Date V isits Requested Visits Authorized [id number] New Request 05/12/2022 06/06/2023 1 1 Additional Source Comments (unrecognized sect ion and content) No Status Records FoundNo Status Records FoundNo Status Records FoundNo Status Records Found INFORMATION SOURCE (unrecogn ized section and content) DATE CREATED AUTHOR AUTHOR'S ORGANIZ ATION 12/10/2019 [facility] DATE CREATED AUTHOR AUTHOR'S ORGANIZ ATION 04/06/2023 [facility] DATE CREATED AUTHOR AUTHOR'S ORGANIZ ATION 06/18/2023 [facility] Reason for Visit (unrecogniz ed section and content) Specialty Diagnoses / Procedures Referred By Contac t Referred To Contact Diagnoses Ascending aorta dilation Procedures CT ANGIO CHEST (NONCORONARY) OR CT ANGIO, CHEST (NON-CORON), COMBO, INCL IMG PROC Tyrel Bermudez, INVESTIGATOR FRAUD-PROGRAM MANAGEMENT MANAGER [address] [place] [address] Referral ID Status Reason Start Date Expiration Date V isits Requested Visits Authorized [id number] Pending Review 05/12/2022 06/06/2023 1 1 Specialty Diagnoses / Procedures Referred By Contac t Referred To Contact Diagnoses Aneurysm of ascending aorta without rupture Procedures CT ANGIO CHEST (NONCORONARY) OR CT ANGIO, CHEST (NON-CORON), COMBO, INCL IMG PROC Daisy Murphy, INVESTIGATOR FRAUD-PROGRAM MANAGEMENT MANAGER [address] [place] [address] Referral ID Status Reason Start Date Expiration Date V isits Requested Visits Authorized [id number] New Request 05/09/2023 06/02/2024 1 1 FOR [...] BE BASED ON THE PRIMARY CLINICAL RECORDS. [facility] [employer] [facility]. provides no warranty or guarantee of the accuracy or completeness of information in this document.
[2023-10-15 21:00] VITALS: BMI 27.8
[2023-10-15 21:13] VITALS: O2SAT 100
[2023-10-15] MEDS: 0.9% Normal Saline (1000mL) 1,000 ML 70 ML IV (22:13)
[2023-10-15] MEDS: MethylPREDNISolone 125 MG/2 ML Vial 60 MG IV (22:13)
[2023-10-15] MEDS: MELATONIN 3 MG TABLET PO (22:13)
[2023-10-15] MEDS: guaiFENesin 1,200 MG Tablet 1200 MG PO (22:13)
[2023-10-15] MEDS: Atorvastatin Calcium 40 MG Tablet PO (22:13)
[2023-10-15] MEDS: Doxycycline 100 MG in Dextrose 5%-Water (250mL Bag) 250 ML 250 MG IV (22:14)
--- OUTSIDE RECORDS SUMMARY | 2023-10-15 23:46 | XMS RPT_ITS | CCD ---
Author Name Unknown Address [address] [place] [address] Organization [facility] Care Team Providers Care Freelance Programmer/App Developer Name Role Phone Sobia Phillips RN Unavailable Unavailable Neisah Rajput Unavailable Holger Swann Unavailable Unavailable Neisha [...] PERCOCET 5-325 MG TABS as directed OXYCODONE-ACETAMINOP [facility] [phone] Tiago Howell MD Problems Active Problems Problem Classification Problem Date Documented Date Episodic/Chronic Acute myocardial infarction (4 sources) Non-ST elevation (NSTEMI) myocardial infarction; Translations: [Non-ST elevation (NSTEMI) myocardial infarction] Onset: 11-08-2016 11-08-2016 Chronic Aortic; peripheral; and visceral artery aneurysms (4 sources) Ascending aorta dilatation; Translations: [Thoracic aortic ectasia] Onset: 05-12-2022 Chronic Coronary atherosclerosis and other heart disease (4 sources) Atherosclerotic heart disease of [place] coronary artery without angina pectoris; Translations: [Atherosclerotic heart disease of [place] coronary artery without angina pectoris] Onset: 10-31-2016 [...] (2 sources) Long-term drug therapy; Translations: [Other custodial (current) drug therapy] Onset: 11-08-2016 11-08-2016 Past or Other Problems Problem Classification Problem Date Documented Da te Episodic/Chronic Coronary atherosclerosis and other heart disease (4 sources) Presence of aortocoronary bypass graft; Translations: [Presence of aortocoronary bypass graft] Onset: 10-31-2016 11-10-2016 Episodic Nonspecific chest pain (8 sources) Chest pain; Translations: [Chest pain, unspecified] Onset: 09-11-2016 Resolved: 11-10-2016 11-10-2016 Episodic Other aftercare (2 sources) Other medical terminologist (current) drug therapy; Translations: [Other custodial (current) drug therapy] Onset: 11-08-2016 11-08-2016 Episodic [...] 177.8 cm Quinton Haro MD Work Phone: [facility] 05-12-2022 13:26-0400 Body mass index (BMI) [Ratio] 28.12 kg/m2 Quinton Haro MD Work Phone: [facility] 05-12-2022 13:26-0400 Body weight 88.91 kg Quinton Haro MD Work Phone: [facility] 05-12-2022 13:26-0400 Diastolic blood pressure 54 mm[Hg] Quinton Haro MD Work Phone: [facility] 05-12-2022 13:26-0400 Heart rate 51 /min Quinton Haro MD Work Phone: [facility] 05-12-2022 13:26-0400 Systolic blood pressure 95 mm[Hg] Quinton Haro MD Work Phone: [facility] 03-27-2017 13:33-0400 BMI (Body Mass Index) [...] 13:33-0400 Respiratory Rate 20 /min Neisha Rajput [facility] Work Phone: 03-27-2017 13:33-0400 Weight 88.91 kg Neisha Rajput [facility] Work Phone: 11-10-2016 13:55-0500 Heart rate 59 /min Harsanthosh DeFinis [facility] Work Phone: 11-10-2016 12:36-0500 BMI (Body Mass Index) 26.83 kg/m2 Harumi DeFinis [facility] Work Phone: 11-10-2016 12:36-0500 BP Diastolic 60 mm[Hg] Harumi DeFinis [facility] Work Phone: 11-10-2016 12:36-0500 BP Systolic 140 mm[Hg] Harumi DeFinis [facility] Work Phone: 11-10-2016 12:36-0500 BSA (Body Surface Area) 2.03 m2 Harumi DeFinis [facility] Work Phone: 11-10-2016 12:36-0500 Height 177.8 cm Harumi DeFinis [facility] Work Phone: 11-10-2016 12:36-0500 Pulse (Heart Rate) 80 /min Harumi DeFinis [facility] Work Phone: 11-10-2016 12:36-0500 Pulse Oximetry 98 % Harumi DeFinis [facility] Work Phone: 11-10-2016 12:36-0500 Respiratory Rate 18 /min Harumi DeFinis [facility] Work Phone: 11-10-2016 12:36-0500 Weight 84.82 kg Harumi DeFinis [facility] Work Phone: Encounters Encounter Date Encounter Type Care Provider Facility Start: 06-11-2023 End: 06-11-2023 Subsequent hospital visit by physician Daisy Murphy APRN-POULTRY DRESSING WORKER Work Phone: [facility] Procedures Date Procedure Procedure Detail Performing Clinician Start: 03-27-2017 End: 03-27-2017 PLASTICATOR Tiago Howell MD Start: 03-27-2017 End: 05-14-2017 [...] encounter procedure [facility] [place] Start: 06-01-2023 Influenza vaccination INFLUENZA VACC INE (#1) [facility] Start: 06-01-2022 Influenza vaccination INFLUENZA VACC INE (#1) [facility] Start: 05-12-2022 End: 05-12-[address] ANGIO CHEST (NONCORONARY) Imaging Routine Ascending aorta dilation Expected: 05/12/2022, Expires: 05/12/2023 [facility] Immunizations Immunization Date Immunization Notes Care Provider Fa cili 07-21-2019 influenza virus vaccine, unspecified formulation Quinton Haro MD Work Phone: [facility] Payers Date Payer Category Payer Unknown [id number] 2014 Unknown GENERIC PAYOR ME DICARE SUPPLEMENT [id number] 2014-Present [phone] [place] [id number] 2014 Medicare [id number] 2014 Medicare MEDICARE MEDICAR E A AND B [id number] 2014-Present [address] [place] [address] [id number] 1945 Unknown [id number] 1945 Unknown [id number] 1945 Unknown [id number] 1945 Unknown [id number] Social History Date Type Detail Facility Start: 05-12-[facility]22 [facility] End: 10-01-2005 History of tobacco use Current smoker [facility] Start: 05-12-2022 Cigarettes smoked current (pack per day) - Reported 0.5 [facility] Start: 05-12-2022 Tobacco use and exposure Smoke less tobacco non-user [facility] Start: 1945 Sex Assigned At Not on file [facility] End: 10-01-2005 History of tobacco use Cigarette Smoker [facility] Start: 05-12-2022 Tobacco use panel [facility] Instructions 05-12-2022 Patient Instructions Note Date & Type Note Facility 05-12-2022 Instructions Tyrel Bermudez APRN-JOSE - 05/12/2022 2:42 PM EDT Thank you for choosing [facility] s Division of Cardiac Surgery & The [facility] for your cardiac surgical needs. We will plan to see you back in our clinic in 12 months for follow-up with Dr. Haro. In preparation for this appointment, we will need the following testing completed: CT Scan - in 1 year Echocardiogram both now near [place] and again in 1 year. For Questions regarding these appointments or if you need to cancel them, please call [phone] Haro s administrative professional. Guidelines for maintaining a healthy and stable Aorta - Blood Pressure Goals: SBP (top number) < 130, DBP (bottom number) < 90, Heart rate < 80. You should monitor these numbers at home on a regular basis. If you notice they are above these recommendations, please see you Primary Doctor (family doctor) or Distribution Technician (heart doctor) right away. Avoid strenuous exercises [...] AORTIC ANEURYSM. documented in this encounter [facility] History of Present illness Narrative 05-12-2022 [...] s/p AVR and CABG in [address] [place] Howell is their radiology director in [place], [place], has provided the referral. He presents [...] in activity due to symptoms, even during yynd-vuvg-iesdqqtg activity, e.g. walking short distances (20-100 m). [...] aorta following CAB 2 AVR (tissue) in [place] in 2016 who I had the pleasure of seeing today, in the company of his Daria with my advanced practice provider, Tyrel Bermudez APRN, CNP. They drove up from the [place] area about 1 1/2 h away. The [...] him to the Aortic Center at the [facility]. Geoffrey Haro MD, MSc, [facility] packing and stamping machine operator Second Officer, [facility] Division of Cardiac Surgery [facility] [address] [place] [address] / [phone] (fax) [email or web address] documented in this encounter [facility] Evaluation note Note Date & Type Note Facility documented in this encounter [facility] Summary Purpose Family History No Family History Records FoundNo Family History Records FoundNo Family History Records FoundNo Family History Records Found Advance Directives No Advanced Directives Records FoundNo Advanced Directives Records FoundNo Advanced Directives Records FoundNo Advanced Directives Records Found Reason for Referral Specialty Diagnoses / Procedures Referred By Contac t Referred To Contact Diagnoses Ascending aorta dilation Procedures ECHOCARDIOGRAM NM ECHO HEART XTHORACIC,COMPLETE W DOPPLER Tyrel Bermudez APRN-CNP [address] [place] [address] Referral ID Status Reason Start Date Expiration Date V isits Requested Visits Authorized [id number] New Request 05/12/2022 06/06/2023 1 1 Specialty Diagnoses / Procedures Referred By Jesica hui Referred To Contact Diagnoses Ascending aorta dilation Procedures CT ANGIO CHEST (NONCORONARY) NM CT ANGIO, CHEST (NON-CORON), COMBO, INCL IMG PROC Tyrel Bermudez, LABEL MACHINE OPERATOR-POULTRY DRESSING WORKER [address] [place] [address] Referral ID Status Reason Start Date Expiration Date V isits Requested Visits Authorized [id number] New Request 05/12/2022 06/06/2023 1 1 Referral ID Status Reason Start Date Expiration Date V isits Requested Visits Authorized [id number] New Request 05/12/2022 06/06/2023 1 1 Additional Source Comments (unrecognized sect ion and content) No Status Records FoundNo Status Records FoundNo Status Records FoundNo Status Records Found INFORMATION SOURCE (unrecogn ized section and content) DATE CREATED AUTHOR AUTHOR'S ORGANIZ ATION 12/10/2019 [facility] DATE CREATED AUTHOR AUTHOR'S ORGANIZ ATION 04/06/2023 [facility] DATE CREATED AUTHOR AUTHOR'S ORGANIZ ATION 06/18/2023 [facility] Reason for Visit (unrecogniz ed section and content) Specialty Diagnoses / Procedures Referred By Contac t Referred To Contact Diagnoses Ascending aorta dilation Procedures CT ANGIO CHEST (NONCORONARY) NM CT ANGIO, CHEST (NON-CORON), COMBO, INCL IMG PROC Tyrel Bermudez, LABEL MACHINE OPERATOR-POULTRY DRESSING WORKER [address] [place] [address] Referral ID Status Reason Start Date Expiration Date V isits Requested Visits Authorized [id number] Pending Review 05/12/2022 06/06/2023 1 1 Specialty Diagnoses / Procedures Referred By Contac t Referred To Contact Diagnoses Aneurysm of ascending aorta without rupture Procedures CT ANGIO CHEST (NONCORONARY) NM CT ANGIO, CHEST (NON-CORON), COMBO, INCL IMG PROC Daisy Murphy, LABEL MACHINE OPERATOR-POULTRY DRESSING WORKER [address] [place] [address] Referral ID Status Reason Start Date Expiration Date V isits Requested Visits Authorized [id number] New Request 05/09/2023 06/02/2024 1 1 FOR [...] BE BASED ON THE PRIMARY CLINICAL RECORDS. [facility] [employer] [facility]. provides no warranty or guarantee of the accuracy or completeness of information in this document.
[2023-10-16] VITALS (8 sets, daily range): BP systolic 130–147; BP diastolic 81–90; PULSE 71–90; RESP 14–19; TEMP 36.6–36.9; O2SAT 94–96; BMI 27.8
[2023-10-16 08:28] LABS: Absolute Lymphocyte Count 0.65 X10^3/uL (0.83-4.51); Absolute Neutrophil Count 8.2 X10^3/uL (2.0-7.7); Basophil# 0.02 X10^3/uL; Basophil% 0.2 % (0-1); Hematocrit 38.6 % (40-54); Hemoglobin 12.5 g/dL (13.0-16.5); Lymphocyte # 0.65 X10^3/ul (0.83-4.51); Lymphocyte % 7.2 % (19-41); Mean Corp Hgb Conc 32.4 g/dL (32-36); Mean Corpuscular Hgb 30.5 pg (27.0-32.0); Mean Corpuscular Volume 94.1 fL (80-94); Mean Platelet Vol. 9.8 fl (6.2-12.0); Monocyte# 0.15 X10^3/uL; Monocyte% 1.7 % (0-10); NRBC Flagged by Analyzer 0 % (0-5); Neutrophil # 8.22 X10^3/uL (2.7-7.7); Neutrophil % 90.6 % (47-70); Platelet Count 145 K/mm3 (150-450); RBC Distribution Width CV 12.1 % (11.6-14.6); RBC Distribution Width SD 42.1 fl (35.1-43.9); White Blood Count 9.1 K/mm3 (4.4-11.0)
[2023-10-16 08:55] LABS: ALB/GLOB Ratio 1.1 RATIO (0.9-2.4); AST(SGOT) 16 U/L (15-37); Alanine Aminotransfer ALT/SGPT 17 U/L (16-61); Albumin, Serum 3.3 g/dL (3.2-5.0); Alkaline Phosphatase 85 U/L (45-117); Anion Gap 5 (5-15); BUN 22 mg/dL (7-18); BUN/Creat Ratio 17.6 RATIO (10-20); Calcium,Total 9.5 mg/dL (8.5-10.1); Chloride 109 mmol/L (98-107); Creatinine, Serum 1.25 mg/dL (0.70-1.30); EST Glomerular Filtration Rate 60 mL/min (>60); Est Glom Filt Rate - Afr Amer 72 mL/min (>60); Estimated Creatinine Clearance 55.27 ml/min; Globulin 3.1 g/dL (2.2-4.2); Glucose 132 mg/dL (74-106); Potassium 4.5 mmol/L (3.5-5.1); Protein, Total 6.4 g/dL (6.4-8.2); Sodium Level 139 mmol/L (136-145); Thyroid Stim Hormone (TSH) 0.63 uIU/mL (0.358-3.74)
[2023-10-16] MEDS: hydroCHLOROthiazide 25 MG Tablet PO (10:43)
[2023-10-16] MEDS: Lisinopril 20 MG Tablet PO (10:43)
[2023-10-16] MEDS: guaiFENesin 1,200 MG Tablet 1200 MG PO ×2 (10:43→21:18)
[2023-10-16] MEDS: Aspirin 81 MG TAB.CHEW PO (10:43)
[2023-10-16] MEDS: Pantoprazole Sodium 40 MG Tablet PO (10:43)
[2023-10-16] MEDS: Paroxetine 20 MG Tablet PO (10:43)
[2023-10-16] MEDS: Enoxaparin 40 MG/0.4 ML Syringe SC (10:44)
[2023-10-16] MEDS: MethylPREDNISolone 125 MG/2 ML Vial 60 MG IV ×2 (10:44→21:18)
--- NOTE | 2023-10-16 10:55 | CASEMGMT ---
ROGERS ARCE Assessment: Face to Face with pt for initial transition planning/care coordination assessment. ROGERS ARCE introduced self and role at [facility], pt voices understanding and consents to assessment. Pt is A&O x4 and answers all questions appropriately at this time. Pt sitting up in bed in no distress with at bedside. Pt is on RA. Care providers, pharmacy, and demographics verified/updated. Admitting Dx:acute exac of COPD PCP:Deny Specialists:[facility] pulm- pt cannot recall name Preferred Pharmacy: [facility] Insurance: [place], [facility] Prescription Benefit: yes through the [place] LNOK: Daria Young, Living Arrangements: Pt lives with in a single story home with 1 step to enter. Pt reports he is I in ADL's and denies concerns at home. Transportation: Pt drives self and denies concerns with transportation. DME:[facility] HHC/SNF:Pt has had HHC in the past, cannot recall name of agency. Pt denies hx of SNF. Pt states no concerns with going home at time of dc. Pt is interested in a nebulizer for home. Provided pt with a verbal local list of DME companies, pt chose [employer]. Pt denies need for therapy. He states they just came back from a month long cruise. Pt states no further concerns/needs. CM to follow. Advised pt to ask CM if any further question/concerns/needs arise, voices understanding. Pt Goal: Home Plan: Home, follow for nebulizer
[2023-10-16] MEDS: Ipratropium 0.5 MG/2.5 ML SOLUTION INHALATION ×2 (11:04→18:39)
[2023-10-16] MEDS: Doxycycline 100 MG CAPSULE PO ×2 (11:50→21:34)
--- NOTE | 2023-10-16 16:56 | PN.HOSP_ITS ---
Reason for Visit Reason for Visit: Diagnoses Chronic obstructive pulmonary disease with (acute) exacerbation (10/15/23) Other abnormalities of breathing (10/15/23) Subjective Subjective Patient was seen and examined today, his is in the room at the time my examination, he tells me that he has a diagnosis of COPD and uses inhalers at home. Patient quit smoking approximately 10 to 15 years ago, he was exposed to agent orange in [place]. Patient states he is coughing and bringing up some yellow-tinged sputum. I changed the patient to oral doxycycline today and left him on IV corticosteroids and aerosol treatments. Patient's respiratory panel was negative for detection of the viral panel. Objective Data Objective Data Vital Signs: Vital Signs Temp Pulse Resp BP Pulse Ox O2 Del Method O2 Flow Rate 98.4 F 82 18 146/90 H 95 Room Air 1 10/16/23 15:10/16/23 15:10/16/23 15:10/16/23 15:10/16/23 15:10/16/23 15:10/15/23 17:37 Oxygen Flow Rate (L/min) 1 Oxygen Delivery Method Room Air Weight: 87.9 kg Body Mass Index (BMI) 27.8 Intake & Output: Intake and Output for Last 24 Hours 10/14/23 10/15/23 10/16/23 23:59 23:59 23:59 Intake Total 660 / 660 1694.83 / 1694.83 Balance 660 / 660 1694.83 / 1694.83 Lab / Micro Data 10/16/23 07:53 10/16/23 07:53 Labs: Laboratory Results - last 24 hr 10/15/23 17:47: WBC 8.7, RBC 4.35 L, Hgb 13.3, Hct 40.9, MCV 94.0, MCH 30.6, MCHC 32.5, RDW Std Deviation 41.2, RDW Coeff of Alyssa 11.9, Plt Count 155, MPV 10.1, Immature Gran % (Auto) 0.300, Neut % (Auto) 52.9, Lymph % (Auto) 22.2, [place] % (Auto) 8.3, Eos % (Auto) 15.3 H, Baso % (Auto) 1.0, Absolute Neuts (auto) 4.6, Absolute Lymphs (auto) 1.93, Nucleated RBC % 0, Sodium 142, Potassium 3.7, Chloride 108 H, Carbon Dioxide 29.0, Anion Gap 5, BUN 16, Creatinine 1.38 H, Estim Creat Clear Calc 51.54, Est GFR (MDRD) Af Amer 64, Est GFR (MDRD) Non-Af 53 L, BUN/Creatinine Ratio 11.6, Glucose 88, Calcium 9.5 10/16/23 07:53: WBC 9.1, RBC 4.10 L, Hgb 12.5 L, Hct 38.6 L, MCV 94.1 H, MCH 30.5, MCHC 32.4, RDW Std Deviation 42.1, RDW Coeff of Alyssa 12.1, Plt Count 145 L, MPV 9.8, Immature Gran % (Auto) 0.300, Neut % (Auto) 90.6 H, Lymph % (Auto) 7.2 L, [place] % (Auto) 1.7, Eos % (Auto) 0.0, Baso % (Auto) 0.2, Absolute Neuts (auto) 8.2 H, Absolute Lymphs (auto) 0.65 L, Nucleated RBC % 0, Sodium 139, Potassium 4.5, Chloride 109 H, Carbon Dioxide 25.0, Anion Gap 5, BUN 22 H, Creatinine 1.25, Estim Creat Clear Calc 55.27, Est GFR (MDRD) Af Amer 72, Est GFR (MDRD) Non-Af 60, BUN/Creatinine Ratio 17.6, Glucose 132 H, Calcium 9.5, Total Bilirubin 0.50, AST 16, ALT 17, Alkaline Phosphatase 85, Total Protein 6.4, Albumin 3.3, Globulin 3.1, Albumin/Globulin Ratio 1.1, TSH 0.63 Micro: Microbiology 10/15/23 21:20 Sputum, Expectorated/Coughed Gram Stain - Final 10/16/23 11:05 Mucosa - Nasopharyngeal Respiratory Panel (PCR) - Final Radiography Diagnostic Testing: Radiology Impression Chest X-Ray 10/15/23 18:05 IMPRESSION: Mild hyperinflation. No acute cardiopulmonary pathology Electronically Signed: Jace Gallego MD at 18:46 EST Reading Location ID and State: [facility] / [place] Tel , Service support , Physical Exam Const alert, oriented x3, no apparent distress and healthy appearing General Appearance: cooperative, well kempt and well developed Orientation / Consciousness: awake, oriented to person, oriented to place and oriented to time HEENT normocephalic, head/scalp atraumatic and moist oral mucous membranes Eyes PERRL, EOMs intact bilaterally and conjunctivae normal Neck supple, no JVD, thyroid normal and no carotid bruits General: trachea midline Resp normal respiratory effort, no retractions and no use of accessory muscles Resp Narrative: Expiratory wheezes are scattered bilaterally Auscultation: wheezes expiratory wheezes and throughout; Negative for rales or rhonchi Cardio regular rate, regular rhythm, S1 normal heart sound, S2 normal heart sound, no murmurs, no rub and no gallops GI normal to inspection, nondistended, normoactive bowel sounds, soft to palpation, non-tender and non-distended Extremity no clubbing, cyanosis or edema Skin no rashes or lesions noted General Skin Exam: no breakdown Neuro oriented x3, CN's II-XII intact bilaterally, no focal motor deficits and no se nsory deficits noted Sensorium / Orientation: awake and alert Speech: speech normal Psych affect normal Assessment & Plan Assessment/Plan (1) Acute exacerbation of chronic obstructive pulmonary disease: PLAN: Plan 1. 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 Next of kin: [place] law dictates a PRIORITY LIST for identifying legal decision-maker/legal next of kin in the following order (LNOK): 1st: The patient?s legal guardian, if any 2nd: The patient's spouse (if status is questionable, consult Risk Management) 3rd: The patient?s adult child(dana) (majority, if multiple children) 4th: The patient?s parents 5th: The patient?s adult siblings (majority, if multiple children siblings) Charges/Coding Visit Charges Inpatient E&M: 04796 Subs Hosp L2
[2023-10-16] MEDS: Atorvastatin Calcium 40 MG Tablet PO (21:34)
[2023-10-16] MEDS: Albuterol 2.5 MG/3 ML VIAL.NEB. INHALATION (21:35)
[2023-10-17] VITALS (10 sets, daily range): BP systolic 131–148; BP diastolic 83–95; PULSE 75–100; RESP 18–26; TEMP 36.4–36.9; O2SAT 89–98; BMI 27.8
[2023-10-17] MEDS: Albuterol 2.5 MG/3 ML VIAL.NEB. INHALATION ×2 (07:44→14:14)
[2023-10-17] MEDS: Ipratropium 0.5 MG/2.5 ML SOLUTION INHALATION ×2 (07:44→14:15)
[2023-10-17] MEDS: hydroCHLOROthiazide 25 MG Tablet PO (10:21)
[2023-10-17] MEDS: Pantoprazole Sodium 40 MG Tablet PO (10:22)
[2023-10-17] MEDS: Doxycycline 100 MG CAPSULE PO (10:23)
[2023-10-17] MEDS: guaiFENesin 1,200 MG Tablet 1200 MG PO (10:24)
[2023-10-17] MEDS: Doxazosin 1 MG Tablet 1.5 MG PO (10:24)
[2023-10-17] MEDS: Aspirin 81 MG TAB.CHEW PO (10:25)
[2023-10-17] MEDS: Paroxetine 20 MG Tablet PO (10:27)
[2023-10-17] MEDS: Lisinopril 20 MG Tablet PO (10:27)
[2023-10-17] MEDS: Enoxaparin 40 MG/0.4 ML Syringe SC (10:28)
[2023-10-17] MEDS: MethylPREDNISolone 125 MG/2 ML Vial 60 MG IV (10:31)
--- NOTE | 2023-10-17 14:38 | DCINST_ITS ---
Discharge Instructions Diet Discharge Diet: No restrictions Activity Discharge Activity: Return to Normal Activity Weight Bearing Status: Full weight bearing Follow Up Care Test Results: Test results from this visit will be discussed in further detail at your follow- up appointment, if applicable. Discharge Plan Admission Admit Date/Time: 10/15/23 19:41 Primary Reason for Your Visit: exac of COPD Attending Provider: Matias Saunders Primary Care Provider: Wade Barclay Consulting Providers: Blaise Johnson Instructions Additional Instructions / Restrictions: Follow up with [place] pulmonary physician Discharge Orders/Prescriptions Prescriptions: New doxycycline monohydrate 100 mg Capsule 100 mg PO BID Qty: 20 0RF guaifenesin [Mucus Relief ER] 1,200 mg Tablet Extended Release 12hr 1,200 mg PO BID Qty: 60 0RF methylprednisolone [Medrol] 4 mg tablet 4 mg PO DAILY Qty: 60 0RF Rx Instructions: 3 tabs twice a day for 5 days, then two twice a day for 5 days, then one twice a day for 5 days, then stop Continued Spiriva Respimat 2.5 mcg/actuation mist 2 inh inhalation QAM pantoprazole 40 mg tablet,delayed release (DR/EC) 40 mg PO DAILY paroxetine HCl 20 mg tablet 20 mg PO DAILY aspirin 81 MG tablet,chewable 81 mg PO DAILY@0800 0RF acetaminophen [Tylenol] 325 mg Capsule 650 mg PO Q6H PRN (Reason: Pain) prazosin 2 mg capsule 2 mg PO DAILY lisinopril 20 mg tablet 20 mg PO QDAY Qty: 90 3RF atorvastatin 40 mg tablet 40 mg PO QHS Qty: 90 3RF hydrochlorothiazide 25 mg tablet 25 mg PO DAILY Qty: 90 3RF Discontinued potassium 99 mg Tablet 99 mg PO DAILY azithromycin 250 mg tablet 250 mg PO DAILY Qty: 4 0RF Referrals / Follow Up: Wade Barclay MD [Primary Care Provider] - Disposition Disposition (needs filled in before D/C Order can be placed): Home, Self Care
--- NOTE | 2023-10-17 15:04 | PCM.DC.SUM ---
Providers Date of Admission: 10/15/23 Date of Discharge: 10/17/23 Primary Care Physician: Dr. Wade Barclay MD Reason For Visit: ACUTE EXACERBATION OF COPD Diagnosis Discharge Diagnosis (1) Acute exacerbation of chronic obstructive pulmonary disease: Status: Chronic Code(s): J44.1 - Chronic obstructive pulmonary disease with (acute) exacerbation (2) Respiratory insufficiency: Status: Acute Code(s): R06.89 - Other abnormalities of breathing Plan 1. Acute exacerbation of COPD-continue IV corticosteroids and aerosol treatments, continue oral Vibramycin #2 essential hypertension-continue present medications #3 hyperlipidemia-continue present medications #4 aortic valvular disease with aortic valve replacement #5 PTSD-continue present medications\ Medications at Discharge Home Medications aspirin 81 mg chewable tablet 81 mg PO DAILY@0800 09/04/16 tiotropium bromide 2.5 mcg/actuation mist for inhalation (Spiriva Respimat) 2 inh inhalation QAM breathing 04/19/21 pantoprazole 40 mg tablet,delayed release 40 mg PO DAILY gerd 03/13/22 paroxetine HCl 20 mg tablet 20 mg PO DAILY mood 03/13/22 acetaminophen 325 mg capsule (Tylenol) 650 mg PO Q6H PRN Pain 05/26/22 atorvastatin 40 mg tablet 40 mg PO QHS #90 tabs 11/16/22 hydrochlorothiazide 25 mg tablet 25 mg PO DAILY #90 tabs 11/16/22 lisinopril 20 mg tablet 20 mg PO QDAY #90 tabs 11/16/22 prazosin 2 mg capsule 2 mg PO DAILY . 10/16/23 doxycycline monohydrate 100 mg capsule 100 mg PO BID #20 caps 10/17/23 guaifenesin 1,200 mg tablet, extended release 12 hr (Mucus Relief ER) 1,200 mg PO BID #60 tabs 10/17/23 methylprednisolone 4 mg tablet (Medrol) 4 mg PO DAILY #60 tabs 10/17/23 Hospital Course Operations None Procedures None Summary of Care Provided Minutes Spent on Discharge: 30 Hospital Course: 78-year-old white male was seen in the emergency room at [facility] with complaints of shortness of breath. Patient had been seen the first week in August at the ER here for similar complaints after he returned from a vacation in [place], CTA was performed and this was unremarkable. Patient was seen by the [facility] in [place] and has a pulmonary appointment later this month. Ambulance was called to the patient's house and he was found to be hypoxic and tripoding, supplemental oxygen was administered breathing treatments were given with significant improvement to the patient's medical status. Patient did not use home oxygen at home. Labs showed a normal white blood cell count, creatinine was slightly elevated at 1.38, patient's chest x-ray showed mild hyperinflation and no acute cardiopulmonary pathology. Patient was admitted to [place] [address], he was placed on IV corticosteroids, aerosol treatments, and IV Vibramycin. Patient improved during his hospital stay. On 10/17/2023, patient was seen and examined: On examination he appeared in good health and spirits. Vital signs as documented. Skin warm and dry and without overt rashes. Neck without JVD, neck was supple, trachea midline, thyroid was normal. Lungs clear bilaterally, normal air movement was noted. Heart exam notable for regular rhythm, normal sounds and absence of murmurs, rubs or gallops. Abdomen unremarkable and without evidence of organomegaly, masses, or abdominal aortic enlargement. Bowel sounds are present, abdomen is not distended. Extremities nonedematous, no cyanosis was noted, no clubbing was noted. Neuro: Cranial nerves II through XII are grossly intact, no focal motor deficits were noted, sensation to light touch and pinprick intact, motor exam 5/5 throughout. Psych: Patient is alert and oriented x3, he does not appear anxious or depressed, he does not appear agitated. Patient was discharged home in stable condition on . Weight / BMI Weight Weight: 88 kg Body Mass Index (BMI) 27.8 ABG / Lab / Microbiology Data 10/16/23 07:53 10/16/23 07:53 Microbiology: Microbiology 10/15/23 21:20 Sputum, Expectorated/Coughed Gram Stain - Final 10/16/23 11:05 Mucosa - Nasopharyngeal Respiratory Panel (PCR) - Final D/C Instructions Discharge Diet: No restrictions Weight Bearing Status: Full weight bearing Meaningful Use Info Meaningful Use Diagnoses (Choose all that apply): None applicable Discharge Plan Admission Admit Date/Time: 10/15/23 19:18 Primary Reason for Your Visit: exac of COPD Attending Provider: Matias Saunders Primary Care Provider: Wade Barclay Consulting Providers: Blaise Johnson Instructions Additional Instructions / Restrictions: Follow up with [place] pulmonary physician Discharge Orders/Prescriptions Prescriptions: New doxycycline monohydrate 100 mg Capsule 100 mg PO BID Qty: 20 0RF guaifenesin [Mucus Relief ER] 1,200 mg Tablet Extended Release 12hr 1,200 mg PO BID Qty: 60 0RF methylprednisolone [Medrol] 4 mg tablet 4 mg PO DAILY Qty: 60 0RF Rx Instructions: 3 tabs twice a day for 5 days, then two twice a day for 5 days, then one twice a day for 5 days, then stop Continued Spiriva Respimat 2.5 mcg/actuation mist 2 inh inhalation QAM pantoprazole 40 mg tablet,delayed release (DR/EC) 40 mg PO DAILY paroxetine HCl 20 mg tablet 20 mg PO DAILY aspirin 81 MG tablet,chewable 81 mg PO DAILY@0800 0RF acetaminophen [Tylenol] 325 mg Capsule 650 mg PO Q6H PRN (Reason: Pain) prazosin 2 mg capsule 2 mg PO DAILY lisinopril 20 mg tablet 20 mg PO QDAY Qty: 90 3RF atorvastatin 40 mg tablet 40 mg PO QHS Qty: 90 3RF hydrochlorothiazide 25 mg tablet 25 mg PO DAILY Qty: 90 3RF Discontinued potassium 99 mg Tablet 99 mg PO DAILY azithromycin 250 mg tablet 250 mg PO DAILY Qty: 4 0RF Referrals / Follow Up: Wade Barclay MD [Primary Care Provider] - Disposition Disposition (needs filled in before D/C Order can be placed): Home, Self Care Charges/Coding Visit Charges Inpatient E&M: 14769 Subs Hosp L1
--- NOTE | 2023-10-17 15:12 | NURSING ---
reviewed student charting
--- NOTE | 2023-10-17 15:43 | PHA.DC.MR.R ---
Pharmacy [place] Med Reconciliation Pharmacy Service has performed discharge medication reconciliation for this patient. Medication education papers prepared, patient discharged before I was able to day camp counselor. The patient's discharge medication list was reviewed for discrepancies and discrepancies were resolved. Medications at Discharge Home Medications aspirin 81 mg chewable tablet 81 mg PO DAILY@0800 09/04/16 tiotropium bromide 2.5 mcg/actuation mist for inhalation (Spiriva Respimat) 2 inh inhalation QAM breathing 04/19/21 pantoprazole 40 mg tablet,delayed release 40 mg PO DAILY gerd 03/13/22 paroxetine HCl 20 mg tablet 20 mg PO DAILY mood 03/13/22 acetaminophen 325 mg capsule (Tylenol) 650 mg PO Q6H PRN Pain 05/26/22 atorvastatin 40 mg tablet 40 mg PO QHS #90 tabs 11/16/22 hydrochlorothiazide 25 mg tablet 25 mg PO DAILY #90 tabs 11/16/22 lisinopril 20 mg tablet 20 mg PO QDAY #90 tabs 11/16/22 prazosin 2 mg capsule 2 mg PO DAILY . 10/16/23 doxycycline monohydrate 100 mg capsule 100 mg PO BID #20 caps 10/17/23 guaifenesin 1,200 mg tablet, extended release 12 hr (Mucus Relief ER) 1,200 mg PO BID #60 tabs 10/17/23 methylprednisolone 4 mg tablet (Medrol) 4 mg PO DAILY #60 tabs 10/17/23
--- OUTSIDE RECORDS SUMMARY | 2023-10-19 09:36 | XMS RPT_ITS | CCD ---
Author Name Unknown Address [address] [place] [address] Organization [facility] Care Team Providers Care Baby Formula Mixer Name Role Phone Jacqueline MCCLOUD, Sobia Noriega Unavailable Unavailable Neisha Rajput Unavailable Holger Swann Unavailable Unavailable Neisha Rajput Y Unavailable LETITIA CABRERA Admitting Unavailable LETITIA CABRERA Attending Unavailable LETITIA CABRERA Primary Care Unavailable LETITIA CABRERA Consulting Unavailable PROVIDER, UNKNOWN Consulting Unavailable PROVIDER, UNKNOWN Consulting Unavailable PROVIDER, UNKNOWN Consulting Unavailable LETITIA CABRERA Admitting Unavailable LETITIA CABRERA Attending Unavailable LETITIA CABRERA Primary Care Unavailable LETITIA CABRERA Consulting Unavailable PROVIDER, UNKNOWN Consulting Unavailable PROVIDER, UNKNOWN Consulting Unavailable PROVIDER, UNKNOWN Consulting Unavailable Unavailable Primary Care Provider Unavailabl e Unavailable Primary Care Provider Unavailabl e DAISY MURPHY Referring Unavailable DAISY MURPHY Attending Unavailable TYREL FELIZ Referring Unavailable TYREL FELIZ Attending Unavailable Wade Barclay MD Unavailable Dr. Tiago Stoner Unavailable [phone] Vijay Howell MD Unavailable [facility] Unavailable [phone] Dr. Luis Bauman MD Unavailable [phone] Mitchell MESA, Jesica Morton Unavailable Unavailable Gogoi (scribe), Hemanta Unavailable Unavaila Daiana Springer LPN Unavailable Unavailable Letitia Cabrera MD Unavailable Viktoria Patel PA-C Unavailable Mohini Moseley Unavailable Unavailable Pradip MCCLOUD, Hillary Paredes Unavailable Unavail able Berenice Albarado LPN Unavailable Unavailable Viktoria Dean RN Unavailable Unavaila ble Jovanny HAND UMBRELLA TIPPER, Tej Unavailable Unavailable [facility] Deniz Unavailable Unavailab halima Hinton PA-C, Brittni De La Vega Unavailable [phone] Kwan ([facility]), Voidio Unavailable Unavailab le Greyson FAN ENGINE ENGINEER, Lawanda Unavailable Unavailable Richert HAND UMBRELLA TIPPER, Lakia Paredes Unavailable Unavailab le Paul HAND UMBRELLA TIPPER, Gali Winkler Unavailable Unavailab halima Rock HAND UMBRELLA TIPPER, Ibis Sullivan Unavailable Unavailab halima Garcia MD, Geoffrey Noriega Unavailable [phone] Vess HAND UMBRELLA TIPPER, Evaangeles Paredes Unavailable Unavailable [place] HAND UMBRELLA TIPPER, Renata Farmer Unavailable Unavaila ble Unavailable Unavailable Medications Current Medications Medication Drug Class(es) Dates Sig (Normalized) Sig (Original) 60 actuat fluticasone propionate 0.25 mg/actuat / salmeterol 0.05 mg/actuat dry powder inhaler (6 sources) Corticosteroi d, beta2-Adrener gic Agonist Start: 0 take 1 puff(s) by inhalation twice daily Fluticasone-Salmeterol 250-50 MCG/DOSE Inhalation Aerosol Powder Breath Activated ; 1 (one) Puff two times daily for 0 days Quantity: 1 {Inhaler} Refills: 3 Ordered: 12-Apr-2020 MD Letitia Cabrera Start: 12-Apr-2020 hydroCHLOROthiazide 25 mg oral tablet (9 sources) Thiazide Diuretic take 1 tablet by mouth once daily hydroCHLOROthiazide 25 MG Oral Tablet ; 1 daily (25 MG) pantoprazole 40 mg delayed release oral tablet (13 sources) Proton Pump Inhibitor Start: 3 take 1 tablet by mouth once daily Pantoprazole Sodium 40 MG Oral Tablet Delayed Release ; 1 (one) Tablet daily for 0 days Quantity: 30 {Tablet} Refills: 5 Ordered: 17-Nov-2022 MARGO Hinton Start: 17-Nov-2022 Completed/Discontinued Medications Medication Drug Class(es) Dates Sig (Normalized) Sig (Original) Acetaminophen (6 sources) Tylenol ; in the evening as needed Status: Inactive Comments: Medication taken as needed. Problems Active Problems Problem Classification Problem Date Documented Date Episodic/Chronic Abdominal pain (12 sources) Abdominal pain; Translations: [Unspecified abdominal pain] 04-07-2019 Episodic Acute bronchitis (20 sources) Acute bronchitis; Translations: [Acute bronchitis, unspecified] 03-27-2022 Episodic Acute myocardial infarction (4 sources) Non-ST elevation (NSTEMI) myocardial infarction; Translations: [Non-ST elevation (NSTEMI) myocardial infarction] Onset: 11-08-2016 11-08-2016 Chronic Adjustment disorders (6 sources) Stress; Translations: [Reaction to severe stress, unspecified] 05-23-2021 Chronic Anxiety disorders (12 sources) Posttraumatic stress disorder; Translations: [Post-traumatic stress disorder, unspecified] 04-12-2023 Chronic Aortic; peripheral; and visceral artery aneurysms (20 sources) Ascending aorta dilatation; Translations: [Thoracic aortic ectasia] Onset: 05-12-2022 Chronic Chronic kidney disease (20 sources) Chronic kidney disease stage 3; Translations: [Chronic kidney disease, Stage III (moderate)] 04-12-2023 Chronic Chronic obstructive pulmonary disease and bronchiectasis (20 sources) Moderate chronic obstructive pulmonary disease; Translations: [Chronic obstructive pulmonary disease, unspecified] 04-12-2023 Chronic Conditions associated with dizziness or vertigo (20 sources) Dizziness; Translations: [Dizziness and giddiness] 03-27-2022 Episodic Congestive heart failure; nonhypertensive (12 sources) Diastolic heart failure; Translations: [Unspecified diastolic (congestive) heart failure] 04-12-2023 Chronic Coronary atherosclerosis and other heart disease (20 sources) 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; Translations: [Coronary arteriosclerosis] Onset: 10-31-2016 10-31-2016 Chronic Diseases of mouth; excluding dental (20 sources) Sialoadenitis 03-27-2022 Episodic Disorders of lipid metabolism (4 sources) Dyslipidemia; Translations: [Lipoprotein deficiency] Onset: 11-08-2016 11-08-2016 Chronic Disorders of lipid metabolism (20 sources) Hyperlipidemia; Translations: [Hyperlipidemia, unspecified] 04-12-2023 Chronic Diverticulosis and diverticulitis (12 sources) Diverticulitis of intestine; Translations: [Diverticulitis of intestine, part unspecified, without perforation or abscess without bleeding] 10-31-2018 Chronic Esophageal disorders (20 sources) Gastroesophageal reflux disease; Translations: [Gastro-esophageal reflux disease without esophagitis] 04-12-2023 Chronic Essential hypertension (20 sources) Essential hypertension; Translations: [Essential (primary) hypertension] Onset: 05-12-2022 05-12-2022 Chronic Genitourinary symptoms and ill-defined conditions (12 sources) Dysuria; Translations: [Dysuria] 03-27-2022 Episodic Heart valve disorders (20 sources) Aortic valve stenosis; Translations: [Nonrheumatic aortic (valve) stenosis with insufficiency] Onset: 10-31-2016 Resolved: 11-10-2016 11-10-2016 Chronic Heart valve disorders (6 sources) Systolic murmur; Translations: [Cardiac murmur, unspecified] 10-13-2013 Episodic Immunizations and screening for infectious disease (20 sources) Requires vaccination; Translations: [Encounter for immunization] 04-12-2023 Episodic Inflammation; infection of eye (except that caused by tuberculosis or sexually transmitteddisease) (18 sources) Blepharitis; Translations: [Unspecified blepharitis unspecified eye, unspecified eyelid] 03-27-2022 Episodic Inflammatory conditions of male genital organs (6 sources) Epididymitis; Translations: [Epididymitis] 07-22-2019 Episodic Malaise and fatigue (20 sources) Fatigue; Translations: [Other fatigue] 04-12-2023 Episodic Mood disorders (20 sources) Recurrent major depression; Translations: [Major depressive disorder, recurrent, unspecified] 04-12-2023 Chronic Osteoarthritis (12 sources) Osteoarthritis of left knee joint; Translations: [Unilateral primary osteoarthritis, left knee] 04-12-2023 Chronic Other connective tissue disease (12 sources) Tendinitis of right rotator cuff; Translations: [Other shoulder lesions, right shoulder] 03-27-2022 Episodic Other lower respiratory disease (6 sources) Cough; Translations: [Cough] 11-25-2019 Episodic Other male genital disorders (6 sources) 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 Chronic Other nervous system disorders (6 sources) Meralgia paresthetica of right leg; Translations: [Meralgia paresthetica, right lower limb] 09-02-2020 Chronic Other non-traumatic joint disorders (12 sources) Pain in right shoulder; Translations: [Pain in joint, shoulder region] 03-27-2022 Episodic Other nutritional; endocrine; and metabolic disorders (12 sources) Overweight in adulthood with body mass index of 25 or more but less than 30; Translations: [Body mass index (BMI) 27.0-27.9, adult] 04-12-2023 Episodic Other nutritional; endocrine; and metabolic disorders (12 sources) Overweight; Translations: [Overweight] 03-27-2022 Episodic Other screening for suspected conditions (not mental disorders or infectious disease) (20 sources) Raised prostate specific antigen; Translations: [Elevated prostate specific antigen [PSA]] 04-12-2023 Episodic Other skin disorders (12 sources) Unspecified hypertrophic and atrophic conditions of skin 03-27-2022 Episodic Other skin disorders (12 sources) Skin lesion; Translations: [Disorder of the skin and subcutaneous tissue, unspecified] 03-27-2022 Episodic Other upper respiratory disease (12 sources) Allergic rhinitis; Translations: [Allergic rhinitis, unspecified] 03-27-2022 Chronic Other upper respiratory disease (18 sources) Chronic rhinitis; Translations: [Chronic rhinitis] 03-27-2022 Chronic Other upper respiratory infections (20 sources) Acute sinusitis, unspecified; Translations: [Other acute sinusitis] 03-27-2022 Episodic Spondylosis; intervertebral disc disorders; other back problems (20 sources) Lumbar radiculopathy; Translations: [Radiculopathy, lumbar region] 06-02-2022 Episodic Sprains and strains (18 sources) Sprain of lumbar; Translations: [Strain of thoracic region] 03-27-2022 Episodic Syncope (12 sources) Syncope and collapse 03-27-2022 Episodic Unclassified (2 sources) Replacement of aortic valve ; Translations: [Presence of prosthetic heart valve] Onset: 10-31-2016 10-31-2016 Unclassified (2 sources) Long-term drug therapy; Translations: [Other buttermaker (current) drug therapy] Onset: 11-08-2016 11-08-2016 Unclassified (6 sources) MCR Well Adult - In general the patient feels well with no complaints. The patient has a balanced diet. The patient exercises 3 - 4 times per week and sleeps 6 hours per night. The patient denies having trouble with bathing, dressing/grooming, toileting, preparing meals and ambulating. The patient denies having trouble with grocery shopping, driving, use of telephone, housework, laundry, preparing/taking medications and finances. Note for MCR Well Adult : reviewed by [facility] 04-12-2023 Unclassified (6 sources) Follow Up for Multiple Chronic Conditions - The patient is here for follow-up of chronic kidney disease, Chronic Obstructive Pulmonary Disease, coronary artery disease, depression, GERD, hyperlipidemia and hypertension. The patient always takes the prescribed medications. No side effects noted (does not need refills). The patient engages in regular exercise program 3-5 times per week (back exercises). The patient's out of office blood pressure checks occur occasionally and dietary compliance is fairly good usually adhering to recommendations. The patient states that there is no recent angina or dyspnea, weight has increased (up 2 pounds) and headaches are rarely noted. Note for Multiple chronic conditions follow-up : reviewed by [facility] 09-18-2022 Unclassified (6 sources) Dizziness - The onset of the dizziness has been sudden and has been occurring in an intermittent (happens 1-2 times a week) pattern for 6 months. The course has been recurrent. The dizziness is characterized as lightheadedness. The dizziness is precipitated by position change and standing suddenly. There has been no associated nausea, vomiting, headache, fever, upper respiratory infection symptoms, tinnitus, ear pain, ear fullness, neck pain, neck stiffness, visual changes, facial paralysis or falling episodes. The dizziness is relieved by rest (Patient reports he stands still for a minute and it goes away). The dizziness is exacerbated by standing. There has been no associated anxiety, cerebrovascular disease, circumoral paresthesia, depression, diabetes mellitus, diplopia, ear infection, facial paralysis, fever, headache, hematemesis, loss of balance, loss of hearing, melena, nausea, neurologic disease, palpitations, paresthesia, recent head trauma, seizures, sensation of fullness, sweating, syncope, tinnitus, use of antihypertensives, use of aspirin, use of diphenhydantoin, use of diuretics, use of gentamycin, use of sedatives, use of streptomycin, use of tranquilizers or vomiting. Note for Dizziness : Patient has been having shortness of breath as well. 09-13-2012 Urinary tract infections (12 sources) Lower urinary tract infectious disease; Translations: [Urinary tract infection, site not specified] 07-10-2018 Episodic Past or Other Problems Problem Classification Problem Date Documented Date Episodic/Chronic Conditions associated with dizziness or vertigo (6 sources) Conditions associated with dizziness or vertigo 07-10-2018 Coronary atherosclerosis and other heart disease (4 sources) Presence of aortocoronary bypass graft; Translations: [Presence of aortocoronary bypass graft] Onset: 10-31-2016 11-10-2016 Episodic Nonspecific chest pain (8 sources) Chest pain; Translations: [Chest pain, unspecified] Onset: 09-11-2016 Resolved: 11-10-2016 11-10-2016 Episodic Other aftercare (2 sources) Other buttermaker (current) drug therapy; Translations: [Other buttermaker (current) drug therapy] Onset: 11-08-2016 11-08-2016 Episodic Other lower respiratory disease (8 sources) Dyspnea; Translations: [Shortness of breath] Onset: 09-11-2016 Resolved: 11-10-2016 09-11-2016 Episodic Unclassified (2 sources) Coronary artery bypass graft; Translations: [Presence of aortocoronary bypass graft] Onset: 10-31-2016 10-31-2016 Unclassified (6 sources) Follow up consultation - The patient is here to follow-up after Emergency Room/Urgent Care on : (05/26/[address] [facility]). Current symptoms include back pain radiating down leg- right . Note for Consultation follow-up : pts right lower leg did go numb for a while today but is better nwthey took him off his oxycodone and his hydrocodone- acetaminophen and also the prednisone . was having mental status changes. 06-02-2022 Unclassified (6 sources) [ADDITIONAL REASON] Transition into care - The patient is transitioning into care from a hospital and a summary of care was reviewed. 06-02-2022 Unclassified (3 sources) Transition into care 05-22-2022 Unclassified (3 sources) [ADDITIONAL REASON] Follow up consultation - The patient is here to follow-up after Emergency Room/Urgent Care ([facility] with back pain.) on : (05-20-22). Note for Consultation follow-up : Was given prescriptions for NORCO, flexeril and a Medrol Dose pack. Continues with low back pain which radiates down right leg. He had an MRI in 2011 showing disc herniation. He had injection then but not surgery. He just saw chiropractor who did xrays. 05-22-2022 Unclassified (6 sources) MCR Well Adult - In general the patient feels well with no complaints, has good energy level and is sleeping well. The patient has a balanced diet. The patient exercises daily (works outside) and sleeps 8 (8-12) hours per night. The patient denies having trouble with bathing, dressing/grooming, toileting, preparing meals and ambulating. The patient denies having trouble with grocery shopping, driving, use of telephone, housework, laundry, preparing/taking medications and finances. The patient has a Healthcare Power of Wide Load Escort and a Living Will. Note for MCR Well Adult : reviewed by [facility] 03-27-2022 Unclassified (6 sources) f/u - ALHAJI 05/09/21 came in w weakness fatigue-- did labs everything normal so you thought stress and recommended paroxetine 20 mgpt has been taking it everyday in the am pt is still dizzy but all the other sx he has having ae betterdizziness is everyday all the time , worse w walking or position changes. 2021 Unclassified (6 sources) Nausea - The onset of the nausea has been acute and has been occurring in a persistent pattern for 2 weeks. The course has been recurrent. The nausea has no relationship to meals. There has been no associated abdominal pain, diarrhea or vomiting. Note for Nausea : Complains of increased fatigue and weakness and dizziness. Also complains of sharp left side neck pain for several months. Painful when he turns his head. 05-09-2021 Unclassified (6 sources) Leg pain - The leg pain began gradually over time and has been occurring for 4 days. The symptoms have been occurring in a persistent (staying the same) pattern. The symptoms are described as a dull ache (all the time) and sharp, stabbing pain (when he sits) and are moderate in severity. The symptoms occur at rest. There is involvement of the right thigh (into right hip). There are no precipitating factors. Aggravating factors include sitting. Relief is provided by nothing (standing). The symptoms have been associated with dyspnea (pt says he always has this) and cough (pt says he has this all the time it goes w the COPD), while the symptoms have not been associated with chest pain, dizziness, muscle weakness, paresthesias, numbness and tingling in toes, calf swelling, fever or chills. 09-02-2020 Unclassified (6 sources) Phone consult about results - I spoke with the patient this morning about the results of this testing. He was started on an inhaler which seems to be working quite well. He said that his breathing overall has markedly improved. He is satisfied with his progress. He reports no other unusual symptoms at this time. His dyspnea is improving. 12-19-2019 Unclassified (6 sources) Cough - The onset of the cough has been gradual and has been occurring in a persistent pattern for 8 months. The course has been increasing. The cough is characterized as productive of white sputum. The amount of sputum is scanty. The cough occurs all the time (he says he may not cough for hours but then when he starts he cant stop). Associated symptoms include dyspnea, nasal congestion, runny nose and wheezing, while there is no chest pain, fever, headache or sore throat. Note for Cough : non smoker for 15 yrs nowhe knows when he laughs he coughs right after 11-25-2019 Unclassified (6 sources) Testicular symptoms - Symptoms include testicular pain and testicular swelling. Symptoms are located in the right testicle. Onset was sudden 1 day(s) ago. There is no known event that preceded symptom onset. The symptoms occur constantly. The episodes occur daily. The patient describes this as moderate in severity and worsening. Associated symptoms do not include fever, chills, nausea or vomiting. Note for Testicular symptoms : pt is also having RLQ pain 07-22-2019 Unclassified (6 sources) swollen eyes - going on for around 10 dayspt states it is worse in the morning- pt said the first day they were matted completley shut through out the day the swelling goes down. pt states they are not very itchy. pt states the neighbors sprayed for bugs over the pumpkin patch and evr since then his eyes have been this way- not sure if this is related? Pt states he started using a different soap about 2 weeks ago ? not sure if its related No prior history of environmental allergies. 05-15-2019 Unclassified (6 sources) Abdominal pain - The onset of the abdominal pain has been acute and has been occurring in a persistent pattern for 2 hours. The course has been constant. The pain is described as a moderate sharp pain. The pain is located in the right upper quadrant and does not radiate. Note for Abdominal pain : Two weeks ago had pain in LUQ, that has improved and not has pain in RUQ. Also complians of dizziness. Was given Pantoprazole in January which improved abdominal pain. Took for two weeks and then stopped medication. 04-07-2019 Unclassified (6 sources) Back pain - The onset of the back pain has been gradual and has been occurring in an intermittent pattern for 6 days. The course has been increasing. The pain is characterized as stabbing. The symptoms are relieved by lying down. The pain has been associated with flank pain, while there has been no associated abdominal pain, bladder dysfunction, dysuria, fever or leg weakness. Note for Back pain : Aggravated by walking. Pain moves on both the right and the left. Tylenol not working for pain.02/06/2019 03-25-2019 Unclassified (6 sources) Knee pain - The knee pain has been occurring in a persistent pattern for 1 month. The course has been gradually worsening. The knee pain is in the left knee. The knee pain is characterized as a dull aching (will become a sharp pain at times). The knee pain is described as being located in the anterior knee (medial side). The knee pain is relieved by rest (with leg propped up). The symptoms have been associated with catching and painful ROM, but have not been associated with decreased ROM or popping/crepitus. There were no previous diagnostic tests. There has been no previous surgeries. Previous medications include Tylenol (leftover pain medication). 02-06-2019 Unclassified (6 sources) [ADDITIONAL REASON] Foot pain - The pain is in the right foot. The foot pain has been occurring in a persistent pattern for 6 months. The course has been worsening. The pain is characterized as burning. There have been no previous diagnostic tests. There have been no previous surgeries. Note for Foot pain : Area is becoming more sensitive touch/pressure being applied. 02-06-2019 Unclassified (6 sources) Abdominal pain - The onset of the abdominal pain has been acute and has been occurring in a persistent pattern for 1 day. The course has been decreasing. The pain is described as a moderate dull ache and gnawing. The pain is located in the left lower quadrant and radiates to the left groin. The symptoms are aggravated by standing, walking and motion. There has been no associated bloody stools, chest pain, constipation, diarrhea, dysuria, fever or heartburn. 10-31-2018 Unclassified (6 sources) Skin lesion - The skin lesion has been occurring for years (the moles of shoulder area were noticed a few years ago, the mole on the back been present for many years.). It has been increasing in size (moles on shoulder are increasing in size, mole on back remains about the same). The lesion is characterized as brown and raised above the skin (slightly raised). Note for Skin lesion : Has 4-5 moles that he would like to have removed today. 10-24-2018 Unclassified (6 sources) MCR Well Adult - In general the patient feels well with minor complaints, has decreased energy level and is sleeping well. The patient has a balanced diet and takes no supplemental vitamins & iron. The patient does not exercise and sleeps 7 hours per night. The patient denies having trouble with bathing, dressing/grooming, toileting, preparing meals and ambulating. The patient denies having trouble with grocery shopping, driving, use of telephone, housework, laundry, preparing/taking medications and finances. The patient has a Healthcare Power of Wide Load Escort and a Living Will. Note for MCR Well Adult : ALHAJI 12/08/2016bmp cbc 2014 09-13-2018 Unclassified (1 source) Transition into care - The patient is transitioning into care from an emergency room and a summary of care was reviewed. 07-10-2018 Unclassified (6 sources) Cold Symptoms - Symptoms include sneezing, runny nose, sore throat, productive cough (green sputum), wheezing (shortness of breath), fever (feels feverish), general malaise (body aches) and headache, but do not include nasal congestion, ear pain or ear fullness. The onset was gradual 9 day(s) ago. The symptoms occur constantly. The patient describes this as moderate in severity and unchanged. Current treatment includes an oral decongestant (mucinex) and Benadryl. Risk factors do not include smoking (former smoker). The patient has been exposed to an individual with similar symptoms (). Patient denies history of seasonal allergies, recurrent sinusitis, asthma or tonsillectomy. Note for Upper respiratory infection : Is having dizzy spells with position changes that come and go. 10-09-2017 Unclassified (6 sources) Follow up consultation - The patient is here to follow-up after hospitalization ([facility]) on : (10/11/16). Current symptoms include chest pain, muscle pain (right side of neck) and weakness (numbness in left leg). Note for Consultation follow-up : Patient was in the hospital and had an open heart surgery done. 12-08-2016 Unclassified (6 sources) [ADDITIONAL REASON] Transition into care - The patient is transitioning into care from another physician ([facility] - 11/10/16) and a summary of care was reviewed (attached to chart as well). 12-08-2016 Unclassified (6 sources) [ADDITIONAL REASON] Shoulder pain - The onset of the shoulder pain has been sudden following no specific incident and has been occurring in a persistent pattern for years. The course has been increasing. The pain is characterized as a severe sharp stabbing. The pain is described as being located in the right shoulder and is aggravated by any movement and overhead activity. Relieving factors include nothing (only temporary relief). The symptoms have been associated with muscle weakness, painful ROM, decreased ROM and difficulty with overhead activities, but have not been associated with muscle swelling. There has been no previous diagnostic testing. 12-08-2016 Unclassified (6 sources) Shoulder pain - The onset of the shoulder pain has been gradual following no specific incident and has been occurring in an intermittent pattern for 3 years. The course has been gradually worsening. The pain is characterized as a moderate to severe dull aching (stabbing at times). The pain is described as being located in the right shoulder and is aggravated by physical activity and work duties. Relieving factors include rest and modification of activity. The symptoms have been associated with multidirectional instability, painful ROM and decreased ROM, but have not been associated with joint swelling, difficulty with overhead activities, difficulty dressing oneself, difficulty combing hair, difficulty with pushing, difficulty with pulling or difficulty with lifting. There has been no previous diagnostic testing. There have been no previous evaluations. There has been no previous physical therapy. There has been no previous surgery. There has been no use of assistive devices. Previous medication use has included Tylenol. Note for Shoulder pain : Patient notes pain is worse after he has been doing prolonged things with his hand and forearm (sanding, painting etc). 07-27-2015 Unclassified (6 sources) Cold Symptoms - Symptoms include sneezing, nasal congestion (sinus drainage), scratchy throat, dry cough, general malaise and headache, but do not include ear pain, sore throat, fever or chills. The onset was sudden 1 year(s) ago. The symptoms occur constantly. The patient describes this as moderate in severity and unchanged. Current treatment includes non-prescription cold medication and allergy medications. 12-24-2014 Unclassified (6 sources) Prostate Infection - Patient is concerned that he has a prostate infection. Patient complains of perineal pain that started yesterday and has been worsening. Patient denies dysuria, hematuria, fever, and chills. Patient has had some nausea today. 10-09-2014 Unclassified (6 sources) Cold Symptoms - Symptoms include nasal congestion, runny nose, purulent discharge and productive cough. The onset was gradual 2 month(s) ago. The symptoms occur constantly. The patient describes this as moderate in severity and worsening. Current treatment includes allergy medications (Claritin). Risk factors do not include smoking. The patient has not been exposed to an individual with similar symptoms. Medical history includes seasonal allergies. 01-30-2014 Unclassified (6 sources) Dizziness - The onset of the dizziness has been acute and has been occurring in a persistent pattern for 2 weeks. The course has been constant. The dizziness is characterized as lightheadedness. The dizziness is precipitated by position change. There has been associated nausea and ear pain (slight on right side.). The dizziness is relieved by lying still. The dizziness is exacerbated by head turning, bending over and getting up quickly. Note for Dizziness : Also complains of bilater hand numbness in the morning. 10-13-2013 Unclassified (6 sources) Skin Lesion - The skin lesion appeared gradually and has been occurring for years. It has been increasing in size. The lesion is characterized as brown and raised above the skin. The lesion is located on the face and the upper extremity (left shoulder and left axillary). 08-19-2013 Unclassified (6 sources) UTI - Symptoms include dysuria. The patient describes the pain as burning. Onset was gradual 1 week(s) ago. There is no known event that preceded symptom onset. The symptoms occur constantly. The patient describes this as moderate in severity and unchanged. 05-29-2013 Unclassified (6 sources) Cold Symptoms - Symptoms include nasal congestion, runny nose, purulent discharge, sore throat, hoarseness, productive cough, wheezing, fever and headache. The onset was gradual month(s) ago. The symptoms occur constantly. The patient describes this as moderate in severity and worsening. The patient is not currently being treated for this problem. Risk factors do not include smoking. Patient denies history of tonsillectomy. 03-31-2013 Unclassified (6 sources) follow up rhinitis and dizziness - Patient is here to follow up rhinitis and dizziness from office visit 09/13/12. Patient had a CBC, Lipid, CMP, and TSH on 09/13/12. Patient reports the dizziness has resolved completely but he is still having problems with head congestion. 10-15-2012 Unclassified (6 sources) follow up syncope - Patient was seen on 05/03/2012 for syncope symptoms. Patient was started on ranitidine and erythromycin at that visit. Patient reports no syncope symptoms or episodes since he was in last. Patient would like to continue the ranitidine. 05-30-2012 Unclassified (6 sources) Follow up consultation - The patient is here to follow-up after Emergency Room/Urgent Care ([facility]) on : (04/28/12). Current symptoms include other (episodes of feeling lightheaded, nausea and tingling in hands. episodes last 20 minutes at a time. patient had 2 episodes yesterday and went to the [facility] care at his place of employment in [place], [place].). 05-03-2012 Unclassified (6 sources) Leg Pain - The leg pain began gradually over time. The symptoms have been occurring in an increasing pattern. The symptoms are described as a burning sensation (below knee) and dull ache (from knee up) and are moderate in severity. There is involvement of the left lower extremity. There are no precipitating factors. Note for Leg Pain : pt had severe back pain and now has pain and weakness in his left leg, pt also feels a little dizzy today. 01-25-2012 Unclassified (6 sources) Back pain - The onset of the pain has been acute and has been occurring in a persistent pattern for 10 days. The course has been constant. The pain is characterized as stabbing and burning. The pain is located in the lower back and radiates to the lateral aspect of left leg, left thigh and left groin. The pain is precipitated by heavy weight lifting (shoveling dirt). The symptoms are aggravated by exertion, weight lifting, prolonged standing and lying down. Note for Back pain : Sitting sometimes helps 01-19-2012 Unclassified (6 sources) sore under tongue - pt was in a while ago for sore spot under tongue, spot looks better but still very sore, hurts his jaw, ear and sore throat 08-18-2011 Unclassified (6 sources) lump under tongue - pt has swollen gland for 10days, ear and jaw pain, was treated with anbx with no improvement. Had lump under tongue which came out yesterday. 07-28-2011 Unclassified (6 sources) swollen gland right neck - Patient states 3 days ago he noted swollen gland right side of neck. It is swollen under his tongue also. He wears dentures and it is sore where the lower dentures sit. He has not had a fever or chills. Patient has had a dry cough. 07-21-2011 Unclassified (6 sources) Cold Symptoms - Current treatment includes an oral decongestant. The patient has not been exposed to none. Symptoms include sneezing, nasal congestion, runny nose, purulent discharge, sore throat, productive cough (pt states pain radiates around to back) and headache, but do not include fever or chills. The onset was gradual 3 week(s) ago. The patient describes this as moderate in severity and worsening. 06-13-2010 Unclassified (3 sources) Follow up consultation - The patient is here to follow-up after Emergency Room/Urgent Care ([facility] with back pain.) on : (05-20-22). Note for Consultation follow-up : Was given prescriptions for NORCO, flexeril and a Medrol Dose pack. Continues with low back pain which radiates down right leg. He had an MRI in 2011 showing disc herniation. He had injection then but not surgery. He just saw chiropractor who did xrays. 05-22-2022 Unclassified (3 sources) [ADDITIONAL REASON] Transition into care 05-22-2022 Unclassified (5 sources) [ADDITIONAL REASON] Transition into care - The patient is transitioning into care from an emergency room and a summary of care was reviewed. 07-10-2018 Results Test Name Value Interpretation Reference Range Facil ity Vital Signs Date Time Vital Sign Value Performing Clinician Eufemia fitzgerald 04-12-2023 07:17-0400 Body weight 88.91 kg Tej Petty LPN [facility] 04-12-2023 07:17-0400 Diastolic blood pressure 72 mm[Hg] Tej Petty LPN [facility]; [facility] Encounters Encounter Date Encounter Type Care Provider Facility Start: 09-17-2023 End: 09-25-2023 Telephone follow-up Wade Barclay MD Work Phone: [facility] Start: 06-11-2023 End: 06-11-2023 Subsequent hospital visit by physician Daisy Murphy REGISTRAR NURSES' REGISTRY-OTORHINOLARYNGOLOGIST Work Phone: [facility] [place] Procedures Date Procedure Procedure Detail Performing Clinician Start: 04-12-2023 End: 04-12-2023 Adv care pln/ no alt dcsn mkr docd or refusal Wade Barclay MD Work Phone: Start: 04-12-2023 End: 04-12-2023 Depression screening Wade Barclay MD Work Phone: Start: 04-12-2023 End: 04-12-2023 Falls risk assessment documented Wade Barclay MD Work Phone: Start: 04-12-2023 End: 04-12-2023 PPPS, subseq visit Wade Barclay MD Work Phone: Start: 04-12-2023 End: 04-12-2023 Pt falls assess docd w/o fall/injury past year Wade Barclay MD Work Phone: Start: 04-12-2023 End: 04-12-2023 Scr dep neg, no plan reqd Wade Barclay MD Work Phone: Start: 04-04-2022 End: 04-04-2022 Screening colonoscopy Tej Petty LPN Plan of Treatment Date Care Activity Detail Author Start: 10-18-2023 Patient encounter procedure Medical; RTN OFFICE VISIT - [facility] mos [facility]tn [facility] Start: 18-Oct-2023 7:10 MD Wade Barclay [facility] Start: 06-11-2023 End: 06-11-2023 Patient encounter procedure [facility] Start: 06-01-2023 Influenza vaccination INFLUENZA VACC INE (#1) [facility] Start: 06-01-2022 Influenza vaccination INFLUENZA VACC INE (#1) [facility] Start: 05-12-2022 End: 05-12-[address] ANGIO CHEST (NONCORONARY) Imaging Routine Ascending aorta dilation Expected: 05/12/2022, Expires: 05/12/2023 [facility] Immunizations Immunization Date Immunization Notes Care Provider [facility] 03-27-2022 pneumococcal polysaccharide vaccine, 23 valent Wade Barclay MD [facility] Payers Date Payer Category Payer Unknown [id number] 2014 Unknown [id number] 2014 Medicare [id number] 2014 Medicare MEDICARE MEDICAR E A AND B [id number] 2014-Present [address] [place] [address] [id number] 1945 Unknown [id number] 1945 Unknown [id number] 1945 Unknown [id number] 1945 Unknown [id number] Social History Date Type Detail Facility Start: 05-12-2022 [facility] End: 10-01-2005 History of tobacco use Current smoker [facility] Start: 05-12-2022 Cigarettes smoked current (pack per day) - Reported 0.5 [employer]. Start: 05-12-2022 Tobacco use and exposure Smoke less tobacco non-user [facility] Start: 1945 Sex Assigned At Not on file O AGUIRRE [facility] End: 10-01-2005 History of tobacco use Cigarette Smoker [facility] Start: 05-12-2022 Tobacco use panel [facility] Tobacco Use: Tobacco Use: ; F ormer smoker. [employer]. [facility] [employer] [facility] [employer]. Work Phone: Instructions 05-12-2022 Patient Instructions Note Date & Type Note Facility 05-12-2022 Instructions Tyrel Feliz APRN-OTORHINOLARYNGOLOGIST - 05/12/2022 2:42 PM EDT Thank you for choosing [facility] s Division of Cardiac Surgery & [facility] for your cardiac surgical needs. We will plan to see you back in our clinic in 12 months for follow-up with Dr. Haro. In preparation for this appointment, we will need the following testing completed: CT Scan - in 1 year Echocardiogram both now near [place] and again in 1 year. For Questions regarding these appointments or if you need to cancel them, please call [phone] Haro s administrative support technician. Guidelines for maintaining a healthy and stable Aorta - Blood Pressure Goals: SBP (top number) < 130, DBP (bottom number) < 90, Heart rate < 80. You should monitor these numbers at home on a regular basis. If you notice they are above these recommendations, please see you Primary Doctor (family doctor) or Linen Grader (heart doctor) right away. Avoid strenuous exercises [...] an AORTIC ANEURYSM. documented in this encounter [facility] History of Present illness Narrative 05-12-2022 [...] s/p AVR and CABG in [address] [place] Howell is their dairy nutrition consultant in [place], [place], has provided the referral. He presents [...] in activity due to symptoms, even during [id number]-misl-[id number] activity, e.g. walking short distances (20-100 m). Comfortable only at rest. [ ] Class IV - Severe limitations. Experiences symptoms even while at rest. Mostly bedbound patients. Past Medical History Past Medical History: Diagnosis Date COPD (chronic obstructive pulmonary disease) Depression Hypertension PTSD (post-traumatic stress disorder) Past Surgical History: Procedure Laterality Date CORONARY ARTERY BYPASS GRAFT 2016 AORTIC VALVE REPLACEMENT 2016 OTHER SURGICAL Gland removal OTHER SURGICAL Multiple [...] aorta following CAB 2 AVR (tissue) in [place] in 2017 who I had the pleasure of seeing today, in the company of his Daria with my advanced practice provider, Tyrel Feliz APRN, CNP. They drove up from the [place] area about 1 1/2 h away. The patient was referred to me for aortic and aortic valve triaging. 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 I have physically seen the patient and reviewed the patient's history, medications, and current complaints. Please see Tyrel Feliz APRN, CNP note for details regarding these. [...] him to the Aortic Center at the [facility]. Geoffrey Haro MD, MSc, [facility], [facility] sewing trimmer Jammer Operator, [facility] Division of Cardiac Surgery [facility] [id number] [id number] / [phone] (fax) [email or web address] documented in this encounter [facility] Evaluation note Note Date & Type Note Facility documented in this encounter [facility] Summary Purpose Family History Cancer Status:Active Comments:Mother. Sister. Cerebrovascular Accident Status:Active Comment s:Negative Family History Of. Coronary Artery Disease Status:Active Comments :Father. Brother. Hypertension Status:Active Comments:Negativ e Family History Of. Cancer Status:Active Comments:Mother. Sister. Cerebrovascular Accident Status:Active Comment s:Negative Family History Of. Coronary Artery Disease Status:Active Comments :Father. Brother. Hypertension Status:Active Comments:Negativ e Family History Of. Cancer Status:Active Comments:Mother. Sister. Cerebrovascular Accident Status:Active Comment s:Negative Family History Of. Coronary Artery Disease Status:Active Comments :Father. Brother. Hypertension Status:Active Comments:Negativ e Family History Of. Cancer Status:Active Comments:Mother. Sister. Cerebrovascular Accident Status:Active Comment s:Negative Family History Of. Coronary Artery Disease Status:Active Comments :Father. Brother. Hypertension Status:Active Comments:Negativ e Family History Of. Cancer Status:Active Comments:Mother. Sister. Cerebrovascular Accident Status:Active Comment s:Negative Family History Of. Coronary Artery Disease Status:Active Comments :Father. Brother. Hypertension Status:Active Comments:Negativ e Family History Of. Cancer Status:Active Comments:Mother. Sister. Cerebrovascular Accident Status:Active Comment s:Negative Family History Of. Coronary Artery Disease Status:Active Comments :Father. Brother. Hypertension Status:Active Comments:Negativ e Family History Of. Advance Directives Living Will - Effective on 11/10/2014. Expiration date unspecified. Scanned Document is available upon request. Effective:09-Sep-2015 Living Will - Effective on 11/10/2014. Expiration date unspecified. Scanned Document is available upon request. Effective:09-Sep-2015 Living Will - Effective on 11/10/2014. Expiration date unspecified. Scanned Document is available upon request. Effective:09-Sep-2015 Living Will - Effective on 11/10/2014. Expiration date unspecified. Scanned Document is available upon request. Effective:09-Sep-2015 Living Will - Effective on 11/10/2014. Expiration date unspecified. Scanned Document is available upon request. Effective:09-Sep-2015 Living Will - Effective on 11/10/2014. Expiration date unspecified. Scanned Document is available upon request. Effective:09-Sep-2015 Reason for Referral Specialty Diagnoses / Procedures Referred By Contac t Referred To Contact Diagnoses Ascending aorta dilation Procedures ECHOCARDIOGRAM ME ECHO HEART XTHORACIC,COMPLETE W DOPPLER Tyrel Feliz, REGISTRAR NURSES' REGISTRY-OTORHINOLARYNGOLOGIST [address] [place] [address] Fax: Referral ID Status Reason Start Date Expiration Date V isits Requested Visits Authorized [id number] New Request 05/12/2022 06/06/2023 1 1 Specialty Diagnoses / Procedures Referred By Contac t Referred To Contact Diagnoses Ascending aorta dilation Procedures CT ANGIO CHEST (NONCORONARY) ME CT ANGIO, CHEST (NON-CORON), COMBO, INCL IMG PROC Tyrel Feliz, REGISTRAR NURSES' REGISTRY-OTORHINOLARYNGOLOGIST [address] [id number] Fax: Referral ID Status Reason Start Date Expiration Date V isits Requested Visits Authorized [id number] New Request 05/12/2022 06/06/2023 1 1 Referral ID Status Reason Start Date Expiration Date V isits Requested Visits Authorized [id number] New Request 05/12/2022 06/06/2023 1 1 Additional Source Comments (unrecognized sect ion and content) No Status Records FoundNo Status Records FoundNo Status Records FoundNo Status Records Found INFORMATION SOURCE (unrecogn ized section and content) DATE CREATED AUTHOR AUTHOR'S ORGANIZ ATION 12/10/2019 [facility] DATE CREATED AUTHOR AUTHOR'S ORGANIZ ATION 04/06/2023 [facility] DATE CREATED AUTHOR AUTHOR'S ORGANIZ ATION 06/18/2023 [facility] Reason for Visit (unrecogniz ed section and content) Specialty Diagnoses / Procedures Referred By Contac t Referred To Contact Diagnoses Ascending aorta dilation Procedures CT ANGIO CHEST (NONCORONARY) ME CT ANGIO, CHEST (NON-CORON), COMBO, INCL IMG PROC Tyrel Feliz, REGISTRAR NURSES' REGISTRY-OTORHINOLARYNGOLOGIST [address] [place] [address] Referral ID Status Reason Start Date Expiration Date V isits Requested Visits Authorized [id number] Pending Review 05/12/2022 06/06/2023 1 1 Specialty Diagnoses / Procedures Referred By Contac t Referred To Contact Diagnoses Aneurysm of ascending aorta without rupture Procedures CT ANGIO CHEST (NONCORONARY) ME CT ANGIO, CHEST (NON-CORON), COMBO, INCL IMG PROC Daisy Murphy, REGISTRAR NURSES' REGISTRY-OTORHINOLARYNGOLOGIST [address] [place] [address] Referral ID Status Reason Start Date Expiration Date V isits Requested Visits Authorized [id number] New Request 05/09/2023 06/02/2024 1 1 FOR [...] BE BASED ON THE PRIMARY CLINICAL RECORDS. [employer] provides no warranty or guarantee of the accuracy or completeness of information in this document.
== END 2023-10-17 15:30 | disposition home or self-care (01) | DRG 192 ==
LOC: ED 19:21 → MS3 10-16 07:21
PROVIDERS: Admitting Provider Internal Medicine; Emergency Provider Emergency Medicine; PCP Family Medicine; Visit Provider Internal Medicine
DX: J44.1 Chronic obstructive pulmonary disease with (acute) exacerbation (principal); E66.3 Overweight; I10 Essential (primary) hypertension; I35.0 Nonrheumatic aortic (valve) stenosis; F32.A Depression, unspecified; E78.5 Hyperlipidemia, unspecified; I25.10 Atherosclerotic heart disease of native coronary artery without angina pectoris; I25.2 Old myocardial infarction; K21.9 Gastro-esophageal reflux disease without esophagitis; F43.12 Post-traumatic stress disorder, chronic; R09.02 Hypoxemia; Z68.29 Body mass index [BMI] 29.0-29.9, adult; Z95.1 Presence of aortocoronary bypass graft; Z77.020 Contact with and (suspected) exposure to aromatic amines; Z79.51 Long term (current) use of inhaled steroids; Z79.82 Long term (current) use of aspirin; Z79.899 Other long term (current) drug therapy; Z87.891 Personal history of nicotine dependence
CPT/HCPCS: 36415; 71045; 80048; 80053; 84443; 85025; 87070; 87205; 87633; 93005; 94640; 94668; 99252; 99285; J7030; A4216; G0463

== ENCOUNTER 2023-12-08 19:02 | Inpatient (IN) | payer OTHER, SELFPAY ==
[2023-12-08] VITALS (9 sets, daily range): BP systolic 127–201; BP diastolic 91–121; PULSE 72–105; RESP 12–32; TEMP 35.6–36.7; O2SAT 95–98; BMI 28.6; BMI 28.3
--- NOTE | 2023-12-08 19:10 | EKG12_ITS ---
Test Reason : DYSRHYTHMIA Blood Pressure : / mmHG Vent. Rate : 082 BPM Atrial Rate : 082 BPM P-R Int : 158 ms QRS Dur : 084 ms QT Int : 382 ms P-R-T Axes : 055 000 048 degrees QTc Int : 446 ms Normal sinus rhythm NORMAL LIMITS Confirmed by Jesus Wang ([id number]), design editor SANDY FERRARO ([id number]) on 12/11/2023 7:29:34 AM Referred By: Confirmed By:Jesus Wang
--- NOTE | 2023-12-08 19:13 | EDS_ITS ---
HPI History of Present Illness Chief Complaint: Shortness of Breath Detail of Chief Complaint: Shortness of breath Informant: patient Narrative Narrative: Patient presents with shortness of breath that started today around 4 PM. Patient gave himself a breathing treatment and then about 02/02/1929 started feeling significantly more dyspneic. Patient does have history of COPD. He denies any chest pain. He had a cough today. No fever. Patient has history of coronary artery disease with prior CABG and history of hypertension. [facility] Medical History (Updated 12/08/23 @ 23:[address] Yulissa Gurrola MD) Anxiety and depression Arthritis Atherosclerotic heart disease of [place] coronary artery without angina pectoris Back pain Chronic anemia Chronic cough CKD (chronic kidney disease), stage III COPD (chronic obstructive pulmonary disease) Essential (primary) hypertension Former tobacco use History of colon polyps History of non-ST elevation myocardial infarction (NSTEMI) (08/2016) Hyperlipidemia Lumbar stenosis Non-rheumatic aortic stenosis PTSD (post-traumatic stress disorder) Sciatica Thoracic aortic aneurysm (TAA) Valvular heart disease Wears dentures Wears glasses Wears hearing aid Home Medications aspirin 81 mg chewable tablet 81 mg PO DAILY@0800 heart health 09/04/16 [Rx Last Taken 12/08/23 07:00] tiotropium bromide 2.5 mcg/actuation mist for inhalation (Spiriva Respimat) 2 inh inhalation QAM breathing 04/19/21 [History Last Taken 12/08/23 07:00] pantoprazole 40 mg tablet,delayed release 40 mg PO DAILY gerd 03/13/22 [History Last Taken 12/08/23 07:00] paroxetine HCl 20 mg tablet 20 mg PO DAILY mood 03/13/22 [History Last Taken 12/08/23 07:00] acetaminophen 325 mg capsule (Tylenol) 650 mg PO Q6H PRN Pain 05/26/22 [History Last Taken Unknown] atorvastatin 40 mg tablet 40 mg PO QHS cholesterol #90 tabs 11/16/22 [Rx Last Taken 12/07/23 21:00] hydrochlorothiazide 25 mg tablet 25 mg PO DAILY blood pressu #90 tabs 11/16/22 [Rx Last Taken 12/08/23 07:00] lisinopril 20 mg tablet 20 mg PO QDAY blood pressure #90 tabs 11/16/22 [Rx Last Taken 12/08/23 07:00] prazosin 2 mg capsule 2 mg PO DAILY . 10/16/23 [History Last Taken 12/07/23 20:00] albuterol sulfate 1.25 mg/3 mL solution for nebulization 1.25 mg inhalation Q4H PRN shortness of breath or wheezing 12/08/23 [History Last Taken 12/08/23 07:00] Allergy/AdvReac Type Severity Reaction Status Date / Time cyclobenzaprine AdvReac Other Verified 12/08/23 23:22 hydrocodone [From [place]] AdvReac Hallucinati Verified 12/08/23 23:22 ons oxycodone AdvReac Hallucinati Verified 12/08/23 23:22 ons prednisone AdvReac Other Verified 12/08/23 23:22 Family History Father CAD (coronary artery disease) Brother CAD (coronary artery disease) Mother Cancer Brother Cancer Brother Cancer Surgical History H/O coronary artery bypass surgery (10/11/16) History of aortic valve replacement (10/11/16) History of left heart catheterization (09/02/16) Hx of colonoscopy Hx of surgical procedure Social History (Updated 12/08/23 @ 23:[address] Yulissa Gurrola MD) household members: spouse Smoking Status: Former smoker alcohol intake: never substance use type: does not use caffeine: Yes Type: coffee Number of servings: 3 ROS ROS ED Review of Systems ROS Unobtainable: other Constitutional Constitutional ED: Reports lethargy; Denies chills, fever(s), sweats or weight loss Eyes Eyes: Denies blurry vision, change in vision or diplopia ENT ENT ED: Denies rhinorrhea or sore throat Cardiovascular Cardiovascular: Denies chest pain, orthopnea or racing heartbeat Respiratory/Chest Respiratory/Chest: Reports cough, dyspnea and dyspnea on exertion; Denies orthopnea or sputum Gastrointestinal Gastrointestinal: Denies abdominal pain, diarrhea, nausea or vomiting Genitourinary Genitourinary ED: Denies dysuria, hematuria or urinary frequency Musculoskeletal Musculoskeletal: Denies arthralgias, back pain, myalgias or neck pain Integumentary Denies abscess, Abrasions or rash Neurologic Neurologic: Denies headache(s) or weakness Psychiatric Psychiatric: Denies anxiety, depression or suicidal thoughts Endocrine Endocrinology: Denies polydipsia, polyphagia or polyuria Hematologic/Lymphatic Hematologic/Lymphatic: Denies easy bleeding, easy bruising or lymphadenopathy Allergic/Immunologic Allergic/Immunologic ED: Denies mouth swelling, tongue swelling or urticaria EXAM Physical Exam Const Vital Signs: 12/08/23 19:09 12/08/23 19:16 12/08/23 19:16 Temperature 96.0 F L 96.0 F L Temperature Source Temporal Temporal Pulse Rate 105 H 101 H Respiratory Rate 24 H 20 H Respiratory Effort Short of Breath Respiratory Pattern Tachypnea Blood Pressure 201/121 H 177/113 H Blood Pressure Mean 147 134 Pulse Ox 96 98 Oxygen Delivery Method Bi-pap Bi-pap Bi-pap Fraction of Inspired Oxygen (FIO2) 40 12/08/23 19:22 12/08/23 19:33 12/08/23 19:14 Temperature 96.0 F L Temperature Source Temporal Pulse Rate 91 102 H Respiratory Rate 20 H 32 H Respiratory Effort Respiratory Pattern Tachypnea Blood Pressure 127/94 H Blood Pressure Mean 105 Pulse Ox 96 95 97 Oxygen Delivery Method Bi-pap Bi-pap Fraction of Inspired Oxygen (FIO2) 30 30 40 12/08/23 19:26 12/08/23 21:38 Temperature 97.8 F Temperature Source Oral Pulse Rate 96 72 Respiratory Rate 24 H 22 H Respiratory Effort Respiratory Pattern Tachypnea Blood Pressure 154/91 H Blood Pressure Mean 112 Pulse Ox 97 Oxygen Delivery Method Room Air Fraction of Inspired Oxygen (FIO2) Positive well nourished and well developed General Appearance ED: well developed and NAD HEENT Reports TM's clear and moist mucous membranes normocephalic and atraumatic; Negative for trauma or tenderness Tympanic Membrane ED: Yes TM's clear Eyes PERRL and EOMs intact bilaterally General Eye ED: Negative for pale conjunctiva or scleral icterus Neck no lymphadenopathy, supple and no JVD General: Negative for tenderness Chest Wall inspection of chest normal and palpation of chest normal Chest: Negative for tenderness Resp normal respiratory effort and No clear to auscultation bilaterally Effort and Inspection: respiratory distress; Negative for pain with movement Auscultation: wheezes and diminished lung sounds; Negative for rhonchi Cardio regular rate, regular rhythm, S1 normal heart sound, S2 normal heart sound and no murmurs Peripheral Pulses: pulses 2+ throughout GI normal to inspection, nondistended, normoactive bowel sounds, soft to palpation, non-tender, non-distended and no masses Back/Spine no CVA tenderness and no thoracic nor lumbar tenderness Extremity normal to inspection General Extremety ED: Negative for edema General Extremity: Negative for edema Neuro oriented x3, CN's II-XII intact bilaterally, no sensory deficits noted and gait normal Sensorium / Orientation: awake, alert, oriented to person, oriented to place and oriented to time Motor Exam: strength 5/5 throughout and strength abnormal Psych mental status grossly normal Skin no rashes or lesions noted and no wounds MDM MDM MDM Narrative Medical decision making narrative: Patient presents with shortness of breath and tripoding and respiratory distress. He was ordered DuoNeb aerosol and ordered BiPAP. Will start an IV and give Solu-Medrol 125 mg IV. Will obtain labs and chest x-ray to evaluate further. Patient treated with DuoNeb aerosol and albuterol. He was given Solu- Medrol. Did well on BiPAP and eventually was taken off and placed on room air. Which she tolerated well. Chest x-ray unremarkable. CBC with differential showed normal white count of 9.3 with hemoglobin of 12.5 and platelet count of 143. Chemistries unremarkable. Troponin was normal. EKG obtained on arrival showed sinus rhythm with rate of 82 bpm with no acute ST segment changes Lab Data Attestation: I reviewed the patient's lab results. Labs: Laboratory Results - last 24 hr 12/08/23 19:18 WBC 9.3 RBC 4.12 L Hgb 12.5 L Hct 39.6 L MCV 96.1 H MCH 30.3 MCHC 31.6 L RDW Std Deviation 46.0 H RDW Coeff of Alyssa 13.0 Plt Count 143 L MPV 10.0 Immature Gran % (Auto) 0.400 Neut % (Auto) 44.3 L Lymph % (Auto) 29.2 [place] % (Auto) 9.8 Eos % (Auto) 15.0 H Baso % (Auto) 1.3 H Absolute Neuts (auto) 4.1 Absolute Lymphs (auto) 2.72 Nucleated RBC % 0 Sodium 143 Potassium 4.2 Chloride 112 H Carbon Dioxide 27.0 Anion Gap 4 L BUN 13 Creatinine 1.27 Estim Creat Clear Calc 55.15 Est GFR (MDRD) Af Amer 71 Est GFR (MDRD) Non-Af 58 L BUN/Creatinine Ratio 10.2 Glucose 122 H Calcium 9.1 Troponin I High Sens 12 Radiography Diagnostic Testing: Clinical Impression(s) from Imaging Studies Chest X-Ray 12/08/23 19:42 IMPRESSION: No radiographic evidence of acute cardiopulmonary disease. Electronically Signed: Eugenie Jenkins MD at 20:32 EST Reading Location ID and State: [facility] / ID Tel , Service support , 1 view chest x-ray obtained showed no acute process. EKG Initial EKG: Attestation: I personally reviewed and interpreted this EKG as follows: Comments: Sinus rhythm with rate of 82 bpm with left atrial enlargement Discharge Plan Dx/Rx/DC Orders Clinical Impression: Respiratory failure, COPD exacerbation, Hypertension Disposition Disposition: Acute Care Hospital [facility] Discharge Date/Time: 12/08/23 22:55
[2023-12-08 19:25] LABS: Absolute Lymphocyte Count 2.72 X10^3/uL (0.83-4.51); Absolute Neutrophil Count 4.1 X10^3/uL (2.0-7.7); Basophil# 0.12 X10^3/uL; Basophil% 1.3 % (0-1); Hematocrit 39.6 % (40-54); Hemoglobin 12.5 g/dL (13.0-16.5); Lymphocyte # 2.72 X10^3/ul (0.83-4.51); Lymphocyte % 29.2 % (19-41); Mean Corp Hgb Conc 31.6 g/dL (32-36); Mean Corpuscular Hgb 30.3 pg (27.0-32.0); Mean Corpuscular Volume 96.1 fL (80-94); Monocyte# 0.91 X10^3/uL; Monocyte% 9.8 % (0-10); NRBC Flagged by Analyzer 0 % (0-5); Neutrophil # 4.13 X10^3/uL (2.7-7.7); Neutrophil % 44.3 % (47-70); Platelet Count 143 K/mm3 (150-450); Red Blood Count 4.12 M/mm3 (4.6-6.2); White Blood Count 9.3 K/mm3 (4.4-11.0)
[2023-12-08] MEDS: Ipratropium/Albuterol Sulfate 3 ML AMPUL.NEB INHALATION (19:26)
[2023-12-08] MEDS: Albuterol 2.5 MG/3 ML VIAL.NEB. INHALATION (19:26)
[2023-12-08] MEDS: MethylPREDNISolone 125 MG/2 ML Vial IV (19:28)
--- OUTSIDE RECORDS SUMMARY | 2023-12-08 19:33 | XMS RPT_ITS | CCD ---
Author Name Unknown Address [address] [place] [address] Organization [facility] Care Team Providers Care Sales Support Representative Name Role Phone Jacqueline MCCLOUD, Sobia Noriega Unavailable Unavailable Neisha Rajput Unavailable Holger Swann Unavailable Unavailable Neisha Rajupt Y Unavailable LETITIA CABRERA Admitting Unavailable LETITIA [...] Barclay MD Unavailable Dr. Tiago Stoner Unavailable Dr. Vijay Howell MD Unavailable [phone] [facility] [address] Luis Bauman MD Unavailable [phone] Mitchell MESA, Jesica Morton Unavailable Unavailable Gogoi (scribe), Hemanta Unavailable Unavaila Daiana Springer LPN Unavailable Unavailable Letitia Cabrera MD Unavailable Viktoria Patel PA-C Unavailable Mohini Moseley Unavailable Unavailable Pradip MCCLOUD, Hillary Paredes Unavailable Unavail able Berenice Albarado LPN Unavailable Unavailable Viktoria Dean RN Unavailable Unavaila ble Jovanny MARKETING TECHNOLOGY SPECIALIST, Tej Unavailable Unavailable Michael (Scribe), Deniz Unavailable Unavailab halima Hinton PA-C, Brittni De La Vega Unavailable [facility] Ovidio Unavailable Unavailab halima Rubi STRIKER OUT, Lawanda Unavailable Unavailable Richert MARKETING TECHNOLOGY SPECIALIST, Lakia Paredes Unavailable Unavailab le Paul MARKETING TECHNOLOGY SPECIALIST, Gali Winkler Unavailable Unavailab halima Rock MARKETING TECHNOLOGY SPECIALIST, bIis Sullivan Unavailable Unavailab halima Garcia MD, Geoffrey Noriega Unavailable [phone] Vess MARKETING TECHNOLOGY SPECIALIST, Evaangeles Paredes Unavailable Unavailable [place] MARKETING TECHNOLOGY SPECIALIST, Renata Farmer Unavailable Unavaila ble Unavailable Unavailable [facility] Unavailable Medications Current Medications Medication Drug Class(es) Dates Sig (Normalized) Sig (Original) 60 actuat fluticasone propionate 0.25 mg/actuat / salmeterol 0.05 mg/actuat dry powder inhaler (8 sources) Corticosteroi d, beta2-Adrener gic Agonist Start: 0 take 1 puff(s) by inhalation twice daily Fluticasone-Salmeterol 250-50 MCG/DOSE Inhalation Aerosol Powder Breath Activated ; 1 (one) Puff two times daily for 0 days Quantity: 1 {Inhaler} Refills: 3 Ordered: 12-Apr-2020 MD Letitia Cabrera Start: 12-Apr-2020 hydroCHLOROthiazide 25 mg oral tablet (11 sources) Thiazide Diuretic take 1 tablet by mouth once daily hydroCHLOROthiazide 25 MG Oral Tablet ; 1 daily (25 MG) pantoprazole 40 mg delayed release oral tablet (15 sources) Proton Pump Inhibitor Start: 3 take 1 tablet by mouth once daily Pantoprazole Sodium 40 MG Oral Tablet Delayed Release ; 1 (one) Tablet daily for 0 days Quantity: 30 {Tablet} Refills: 5 Ordered: 17-Nov-2022 MARGO Hinton Start: 17-Nov-2022 Completed/Discontinued Medications Medication Drug Class(es) Dates Sig (Normalized) Sig (Original) Acetaminophen (8 sources) Tylenol ; in the evening as needed Status: Inactive Comments: Medication taken as needed. Problems Active Problems Problem Classification Problem Date Documented Date Episodic/Chronic Abdominal pain (16 sources) Abdominal pain; Translations: [Unspecified abdominal pain] 04-07-2019 Episodic Acute bronchitis (20 sources) Acute bronchitis; Translations: [Acute bronchitis, unspecified] 03-27-2022 Episodic Acute myocardial infarction (4 sources) Non-ST elevation (NSTEMI) myocardial infarction; Translations: [Non-ST elevation (NSTEMI) myocardial infarction] Onset: 11-08-2016 11-08-2016 Chronic Adjustment disorders (8 sources) Stress; Translations: [Reaction to severe stress, unspecified] 05-23-2021 Chronic Anxiety disorders (16 sources) Posttraumatic stress disorder; Translations: [Post-traumatic stress [...] giddiness] 03-27-2022 Episodic Congestive heart failure; nonhypertensive (16 sources) Diastolic heart failure; Translations: [Unspecified diastolic (congestive) heart failure] 04-12-2023 Chronic Coronary atherosclerosis and other heart disease (20 sources) 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; Translations: [Coronary arteriosclerosis] Onset: 10-31-2016 10-31-2016 Chronic Diseases of mouth; excluding dental (20 sources) Sialoadenitis 03-27-2022 Episodic Disorders of lipid metabolism (4 sources) Dyslipidemia; Translations: [Lipoprotein deficiency] Onset: 11-08-2016 11-08-2016 Chronic Disorders of lipid metabolism (20 sources) Hyperlipidemia; Translations: [Hyperlipidemia, unspecified] 04-12-2023 Chronic Diverticulosis and diverticulitis (16 sources) Diverticulitis of intestine; Translations: [Diverticulitis of intestine, part unspecified, without perforation or abscess without bleeding] 10-31-2018 Chronic Esophageal disorders (20 sources) Gastroesophageal reflux disease; Translations: [Gastro-esophageal reflux disease without esophagitis] 04-12-2023 Chronic Essential hypertension (20 sources) Essential hypertension; Translations: [Essential (primary) hypertension] Onset: 05-12-2022 05-12-2022 Chronic Genitourinary symptoms and ill-defined conditions (16 sources) Dysuria; Translations: [Dysuria] 03-27-2022 Episodic Heart valve disorders (20 sources) Aortic valve stenosis; Translations: [Nonrheumatic aortic (valve) stenosis with insufficiency] Onset: 10-31-2016 Resolved: 11-10-2016 11-10-2016 Chronic Heart valve disorders (8 sources) Systolic murmur; Translations: [Cardiac murmur, unspecified] 10-13-2013 Episodic Immunizations and screening for infectious disease (20 sources) Requires vaccination; Translations: [Encounter for immunization] 04-12-2023 Episodic Inflammation; infection of eye (except that caused by tuberculosis or sexually transmitteddisease) (20 sources) Blepharitis; Translations: [Unspecified blepharitis unspecified eye, unspecified eyelid] 03-27-2022 Episodic Inflammatory conditions of male genital organs (8 sources) Epididymitis; Translations: [Epididymitis] 07-22-2019 Episodic Malaise and fatigue (20 sources) Fatigue; Translations: [Other fatigue] 04-12-2023 Episodic Mood disorders (20 sources) Recurrent major depression; Translations: [Major depressive disorder, recurrent, unspecified] 04-12-2023 Chronic Osteoarthritis (16 sources) Osteoarthritis of left knee joint; Translations: [Unilateral primary osteoarthritis, left knee] 04-12-2023 Chronic Other connective tissue disease (16 sources) Tendinitis of right rotator cuff; Translations: [Other shoulder lesions, right shoulder] 03-27-2022 Episodic Other eye disorders (5 sources) Ptosis of eyelid; Translations: [Unspecified ptosis of unspecified eyelid] 11-29-2023 Episodic Other lower respiratory disease (8 sources) Cough; Translations: [Cough] 11-25-2019 Episodic Other male genital disorders (8 sources) 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 Chronic Other nervous system disorders (8 sources) Meralgia paresthetica of right leg; Translations: [Meralgia paresthetica, right lower limb] 09-02-2020 Chronic Other non-traumatic joint disorders (16 sources) Pain in right shoulder; Translations: [Pain in joint, shoulder region] 03-27-2022 Episodic Other nutritional; endocrine; and metabolic disorders (16 sources) Overweight in adulthood with body mass index of 25 or more but less than 30; Translations: [Body mass index (BMI) 27.0-27.9, adult] 04-12-2023 Episodic Other nutritional; endocrine; and metabolic disorders (16 sources) Overweight; Translations: [Overweight] 03-27-2022 Episodic Other screening for suspected conditions (not mental disorders or infectious disease) (20 sources) Raised prostate specific antigen; Translations: [Elevated prostate specific antigen [PSA]] 04-12-2023 Episodic Other skin disorders (16 sources) Unspecified hypertrophic and atrophic conditions of skin 03-27-2022 Episodic Other skin disorders (16 sources) Skin lesion; Translations: [Disorder of the skin and subcutaneous tissue, unspecified] 03-27-2022 Episodic Other upper respiratory disease (16 sources) Allergic rhinitis; Translations: [Allergic rhinitis, unspecified] 03-27-2022 Chronic Other upper respiratory disease (20 sources) Chronic rhinitis; Translations: [Chronic rhinitis] 03-27-2022 Chronic Other upper respiratory infections (20 sources) Acute sinusitis, unspecified; Translations: [Other acute sinusitis] 03-27-2022 Episodic Spondylosis; intervertebral disc disorders; other back problems (20 sources) Lumbar radiculopathy; Translations: [Radiculopathy, lumbar region] 06-02-2022 Episodic Sprains and strains (20 sources) Sprain of lumbar; Translations: [Strain of thoracic region] 03-27-2022 Episodic Syncope (16 sources) Syncope and collapse 03-27-2022 Episodic Unclassified (2 sources) Replacement of aortic valve ; Translations: [Presence of prosthetic heart valve] Onset: 10-31-2016 10-31-2016 Unclassified (2 sources) Long-term drug therapy; Translations: [Other intermodal dispatcher (current) drug therapy] Onset: 11-08-2016 11-08-2016 Unclassified (8 sources) MCR Well Adult - In general [...] for MCR Well Adult : reviewed by [facility] 04-12-2023 Unclassified (8 sources) Follow Up for Multiple Chronic Conditions [...] Multiple chronic conditions follow-up : reviewed by [facility] 09-18-2022 Unclassified (8 sources) Dizziness - The onset of the [...] breath as well. 09-13-2012 Urinary tract infections (16 sources) Lower urinary tract infectious disease; Translations: [Urinary tract infection, site not specified] 07-10-2018 Episodic Past or Other Problems Problem Classification Problem Date Documented Date Episodic/Chronic Conditions associated with dizziness or vertigo (8 sources) Conditions associated with dizziness or vertigo 07-10-2018 Coronary atherosclerosis and other heart disease (4 sources) Presence of aortocoronary bypass graft; Translations: [Presence of aortocoronary bypass graft] Onset: 10-31-2016 11-10-2016 Episodic Nonspecific chest pain (8 sources) Chest pain; Translations: [Chest pain, unspecified] Onset: 09-11-2016 Resolved: 11-10-2016 11-10-2016 Episodic Other aftercare (2 sources) Other intermodal dispatcher (current) drug therapy; Translations: [Other intermediate (current) drug therapy] Onset: 11-08-2016 11-08-2016 Episodic Other lower respiratory disease (8 sources) Dyspnea; Translations: [Shortness of breath] Onset: 09-11-2016 Resolved: 11-10-2016 09-11-2016 Episodic Unclassified (2 sources) Coronary artery bypass graft; Translations: [Presence of aortocoronary bypass graft] Onset: 10-31-2016 10-31-2016 Unclassified (8 sources) Follow up consultation - The patient is here to follow-up after Emergency Room/Urgent Care on : (05/26/22 [facility] Current symptoms include back pain radiating down leg- right . Note for Consultation follow-up : pts right lower leg did go numb for a while today but is better nwthey took him off his oxycodone and his hydrocodone- acetaminophen and also the prednisone . was having mental status changes. 06-02-2022 Unclassified (8 sources) [ADDITIONAL REASON] Transition into care - The patient is transitioning into care from a hospital and a summary of care was reviewed. 06-02-2022 Unclassified (4 sources) Transition into care 05-22-2022 Unclassified (4 sources) [ADDITIONAL REASON] Follow up consultation - The patient is here to follow-up after Emergency Room/Urgent Care ([facility] with back pain.) on : (05-20-22). Note for Consultation follow-up : Was given prescriptions for NORCO, flexeril and a Medrol Dose pack. Continues with low back pain which radiates down right leg. He had an MRI in 2011 showing disc herniation. He had injection then but not surgery. He just saw chiropractor who did xrays. 05-22-2022 Unclassified (8 sources) MCR Well Adult - In general [...] The patient has a Healthcare Power of [employer] and a Living Will. Note for MCR Well Adult : reviewed by [facility] 03-27-2022 Unclassified (8 sources) f/u - ALHAJI 05/09/21 came in w weakness fatigue-- did labs everything normal so you thought stress and recommended paroxetine 20 mgpt has been taking it everyday in the am pt is still dizzy but all the other sx he has having ae betterdizziness is everyday all the time , worse w walking or position changes. 2021 Unclassified (8 sources) Nausea - The onset of the [...] when he turns his head. 05-09-2021 Unclassified (8 sources) Leg pain - The leg pain [...] calf swelling, fever or chills. 09-02-2020 Unclassified (8 sources) Phone consult about results - I spoke with the patient this morning about the results of this testing. He was started on an inhaler which seems to be working quite well. He said that his breathing overall has markedly improved. He is satisfied with his progress. He reports no other unusual symptoms at this time. His dyspnea is improving. 12-19-2019 Unclassified (8 sources) Cough - The onset of the [...] laughs he coughs right after 11-25-2019 Unclassified (8 sources) Testicular symptoms - Symptoms include testicular [...] is also having RLQ pain 07-22-2019 Unclassified (8 sources) swollen eyes - going on for [...] prior history of environmental allergies. 05-15-2019 Unclassified (8 sources) Abdominal pain - The onset of [...] weeks and then stopped medication. 04-07-2019 Unclassified (8 sources) Back pain - The onset of [...] Tylenol not working for pain.02/06/2019 03-25-2019 Unclassified (8 sources) Knee pain - The knee pain [...] include Tylenol (leftover pain medication). 02-06-2019 Unclassified (8 sources) [ADDITIONAL REASON] Foot pain - The [...] more sensitive touch/pressure being applied. 02-06-2019 Unclassified (8 sources) Abdominal pain - The onset of [...] diarrhea, dysuria, fever or heartburn. 10-31-2018 Unclassified (8 sources) Skin lesion - The skin lesion [...] like to have removed today. 10-24-2018 Unclassified (8 sources) MCR Well Adult - In general [...] The patient has a Healthcare Power of [employer] and a Living Will. Note for MCR Well Adult : ALHAJI 12/08/2016bmp cbc 2014 09-13-2018 Unclassified (2 sources) Transition into care - The patient is transitioning into care from an emergency room and a summary of care was reviewed. 07-10-2018 Unclassified (8 sources) Cold Symptoms - Symptoms include sneezing, [...] changes that come and go. 10-09-2017 Unclassified (8 sources) Follow up consultation - The patient is here to follow-up after hospitalization ([facility]) on : (10/11/16). Current symptoms include chest pain, muscle pain (right side of neck) and weakness (numbness in left leg). Note for Consultation follow-up : Patient was in the hospital and had an open heart surgery done. 12-08-2016 Unclassified (8 sources) [ADDITIONAL REASON] Transition into care - The patient is transitioning into care from another physician ([facility] - 11/10/16) and a summary of care was reviewed (attached to chart as well). 12-08-2016 Unclassified (8 sources) [ADDITIONAL REASON] Shoulder pain - The [...] been no previous diagnostic testing. 12-08-2016 Unclassified (8 sources) Shoulder pain - The onset of [...] and forearm (sanding, painting etc). 07-27-2015 Unclassified (8 sources) Cold Symptoms - Symptoms include sneezing, nasal congestion (sinus drainage), scratchy throat, dry cough, general malaise and headache, but do not include ear pain, sore throat, fever or chills. The onset was sudden 1 year(s) ago. The symptoms occur constantly. The patient describes this as moderate in severity and unchanged. Current treatment includes non-prescription cold medication and allergy medications. 12-24-2014 Unclassified (8 sources) Prostate Infection - Patient is concerned that he has a prostate infection. Patient complains of perineal pain that started yesterday and has been worsening. Patient denies dysuria, hematuria, fever, and chills. Patient has had some nausea today. 10-09-2014 Unclassified (8 sources) Cold Symptoms - Symptoms include nasal [...] Medical history includes seasonal allergies. 01-30-2014 Unclassified (8 sources) Dizziness - The onset of the [...] hand numbness in the morning. 10-13-2013 Unclassified (8 sources) Skin Lesion - The skin lesion appeared gradually and has been occurring for years. It has been increasing in size. The lesion is characterized as brown and raised above the skin. The lesion is located on the face and the upper extremity (left shoulder and left axillary). 08-19-2013 Unclassified (8 sources) UTI - Symptoms include dysuria. The patient describes the pain as burning. Onset was gradual 1 week(s) ago. There is no known event that preceded symptom onset. The symptoms occur constantly. The patient describes this as moderate in severity and unchanged. 05-29-2013 Unclassified (8 sources) Cold Symptoms - Symptoms include nasal [...] Patient denies history of tonsillectomy. 03-31-2013 Unclassified (8 sources) follow up rhinitis and dizziness - Patient is here to follow up rhinitis and dizziness from office visit 09/13/12. Patient had a CBC, Lipid, CMP, and TSH on 09/13/12. Patient reports the dizziness has resolved completely but he is still having problems with head congestion. 10-15-2012 Unclassified (8 sources) follow up syncope - Patient was seen on 05/03/2012 for syncope symptoms. Patient was started on ranitidine and erythromycin at that visit. Patient reports no syncope symptoms or episodes since he was in last. Patient would like to continue the ranitidine. 05-30-2012 Unclassified (8 sources) Follow up consultation - The patient is here to follow-up after Emergency Room/Urgent Care ([facility]) on : (04/28/12). Current symptoms include other (episodes of feeling lightheaded, nausea and tingling in hands. episodes last 20 minutes at a time. patient had 2 episodes yesterday and went to [facility] at his place of employment in [place], [place].). 05-03-2012 Unclassified (8 sources) Leg Pain - The leg pain [...] feels a little dizzy today. 01-25-2012 Unclassified (8 sources) Back pain - The onset of [...] pain : Sitting sometimes helps 01-19-2012 Unclassified (8 sources) sore under tongue - pt was in a while ago for sore spot under tongue, spot looks better but still very sore, hurts his jaw, ear and sore throat 08-18-2011 Unclassified (8 sources) lump under tongue - pt has swollen gland for 10days, ear and jaw pain, was treated with anbx with no improvement. Had lump under tongue which came out yesterday. 07-28-2011 Unclassified (8 sources) swollen gland right neck - Patient states 3 days ago he noted swollen gland right side of neck. It is swollen under his tongue also. He wears dentures and it is sore where the lower dentures sit. He has not had a fever or chills. Patient has had a dry cough. 07-21-2011 Unclassified (8 sources) Cold Symptoms - Current treatment includes [...] moderate in severity and worsening. 06-13-2010 Unclassified (4 sources) Follow up consultation - The patient is here to follow-up after Emergency Room/Urgent Care ([facility] with back pain.) on : (05-20-22). Note for Consultation follow-up : Was given prescriptions for NORCO, flexeril and a Medrol Dose pack. Continues with low back pain which radiates down right leg. He had an MRI in 2011 showing disc herniation. He had injection then but not surgery. He just saw chiropractor who did xrays. 05-22-2022 Unclassified (4 sources) [ADDITIONAL REASON] Transition into care 05-22-2022 Unclassified (6 sources) [ADDITIONAL REASON] Transition into care - The patient is transitioning into care from an emergency room and a summary of care was reviewed. 07-10-2018 Unclassified (2 sources) Extra Skin - Pt voicing c/o extra skin above and below BL eyelids. 11-29-2023 Results Test Name Value Interpretation Reference Range Facil ity Vital Signs Date Time Vital Sign Value Performing Clinician Faci lity 11-29-2023 07:54-0500 Body height 177.8 cm [facility] 11-29-2023 07:54-0500 Body mass index (BMI) [Ratio] 28.7 kg/m2 [facility] [employer] 11-29-2023 07:54-0500 Body surface area Derived from formula 2.09 m2 [facility]anny [facility] [employer] [employer] 11-29-2023 07:54-0500 Body weight 90.72 kg [facility]j [facility]ovanny [facility] [employer] [employer] 11-29-2023 07:54-0500 Diastolic blood pressure 67 mm[Hg] [facility]ovanny [facility] [employer] [employer] Encounters Encounter Date Encounter Type Care Provider Facility Start: 11-29-2023 End: 11-29-2023 Orders Wade Barclay MD Work Phone: [facility] Start: 11-29-2023 Review Wade Barclay MD Work Phone: [facility]. Start: 11-29-2023 End: 11-29-2023 Office outpatient visit 15 minutes Wade Barclay MD Work Phone: [facility]. Start: 09-17-2023 End: 09-25-2023 Telephone follow-up Wade Barclay MD Work Phone: [facility]. Start: 06-11-2023 End: 06-11-2023 Subsequent hospital visit by physician Daisy Murphy [employer] Work Phone: [facility] Procedures Date Procedure Procedure Detail Performing Clinician [...] assess docd w/o fall/injury past year Wade Barcaly MD Work Phone: Start: 04-12-2023 End: 04-12-2023 Scr dep neg, no plan reqd Wade Braclay MD Work Phone: Start: 04-04-2022 End: 04-04-2022 Screening colonoscopy Tej Petty LPN Plan of Treatment Date Care Activity Detail Author Start: 10-18-2023 Patient encounter procedure Medical; [facility] Start: 18-Oct-2023 7:10 MD Wade Barclay [facility] Start: 06-11-2023 End: 06-11-2023 Patient encounter procedure [facility] Start: 06-01-2023 Influenza vaccination INFLUENZA VACC INE (#1) [facility] Start: 06-01-2022 Influenza vaccination INFLUENZA VACC INE (#1) [facility] Start: 05-12-2022 End: 05-12-[address] ANGIO CHEST (NONCORONARY) Imaging Routine Ascending aorta dilation Expected: 05/12/2022, Expires: 05/12/2023 [facility] Immunizations Immunization Date Immunization Notes Care Provider Marcy boogie 03-27-2022 pneumococcal polysaccharide vaccine, 23 romy Barclay MD Work Phone: [facility] Payers Date Payer Category Payer Unknown [id number] 2014 Unknown [id number] 2014 Medicare [id number] 2014 Medicare MEDICARE MEDICAR E A AND B [id number] 2014-Present [address] [place] [address] [id number] 1945 Unknown [id number] 1945 Unknown [id number] 1945 Unknown [id number] 1945 Unknown [id number] Social History Date Type Detail Facility Start: 05-12-20[address] [facility] End: 10-01-2005 History of tobacco use Current smoker [facility] Start: 05-12-2022 Cigarettes smoked current (pack per day) - Reported 0.5 [facility] Start: 05-12-2022 Tobacco use and exposure Smoke less tobacco non-user [facility] Start: 1945 Sex Assigned At Not on file O [facility] End: 10-01-2005 History of tobacco use Cigarette Smoker [facility] Start: 05-12-2022 [facility] Use: Tobacco Use: ; F ormer smoker. [facility] Work Phone: Instructions 05-12-2022 Patient Instructions Note Date & Type Note Facility 05-12-2022 Instructions PEREZ Bailon - 05/12/2022 2:42 PM EDT Thank you for choosing [facility] for your cardiac surgical needs. We will plan to see you back in our clinic in 12 months for follow-up with Dr. Haro. In preparation for this appointment, we will need the following testing completed: CT Scan - in 1 year Echocardiogram both now near [place] and again in 1 year. For Questions regarding these appointments or if you need to cancel them, please call [phone] Haro s district administrative assistant. Guidelines for maintaining a healthy and stable Aorta - Blood Pressure Goals: SBP (top number) < 130, DBP (bottom number) < 90, Heart rate < 80. You should monitor these numbers at home on a regular basis. If you notice they are above these recommendations, please see you Primary Doctor (family doctor) or Hand Miter Operator (heart doctor) right away. Avoid strenuous [...] AORTIC ANEURYSM. documented in this encounter [facility] History of Present illness Narrative 05-12-2022 PEREZ [...] s/p AVR and CABG in [address] [place] Howell is their milk drier in [place], [place], has provided the referral. He presents [...] in activity due to symptoms, even during [id number] activity, e.g. walking short distances (20-100 m). [...] aorta following CAB 2 AVR (tissue) in [place] in 2016 who I had the pleasure of seeing today, in the company of his Daria with my advanced practice provider, Tyrel Feliz APRN, CNP. They drove up from the [place] area about 1 1/2 h away. The [...] him to the Aortic Center at the [facility]. Geoffrey Haro MD, MSc, [facility] door and arrival attendant Nude Model, Aortic Surgery Center Division of Cardiac Surgery [facility] [address] [place] [address] / [phone] (fax) [email or web address] documented in this encounter [facility] Evaluation note Note Date & Type Note Facility documented in this encounter [facility] Summary Purpose Family History Cancer Status:Active Comments:Mother. [...] AR ECHO HEART XTHORACIC,COMPLETE W DOPPLER Tyrel Feliz, [employer] [address] [place] [address] Referral ID Status Reason Start Date Expiration Date V isits Requested Visits Authorized [id number] New Request 05/12/2022 06/06/2023 1 1 Specialty Diagnoses / Procedures Referred By Contac t Referred To Contact Diagnoses Ascending aorta dilation Procedures CT ANGIO CHEST (NONCORONARY) AR CT ANGIO, CHEST (NON-CORON), COMBO, INCL IMG PROC Tyrel Feliz, [employer] [address] [place] [address] Referral ID Status Reason Start Date Expiration Date V isits Requested Visits Authorized [id number] New Request 05/12/2022 06/06/2023 1 1 Referral ID Status Reason Start Date Expiration Date V isits Requested Visits Authorized [id number] New Request 05/12/2022 06/06/2023 1 1 Additional Source Comments (unrecognized sect ion and content) No Status Records FoundNo Status Records FoundNo Status Records FoundNo Status Records Found INFORMATION SOURCE (unrecogn ized section and content) DATE CREATED AUTHOR AUTHOR'S ORGANIZ ATION 12/10/2019 [facility] DATE CREATED AUTHOR AUTHOR'S ORGANIZ ATION 04/06/2023 [facility] DATE CREATED AUTHOR AUTHOR'S ORGANIZ ATION 06/18/2023 [facility] Reason for Visit (unrecogniz ed section and content) Specialty Diagnoses / Procedures Referred By Contac t Referred To Contact Diagnoses Ascending aorta dilation Procedures CT ANGIO CHEST (NONCORONARY) AR CT ANGIO, CHEST (NON-CORON), COMBO, INCL IMG PROC Tyrel Feliz, [employer] [address] [place] [address] Referral ID Status Reason Start Date Expiration Date V isits Requested Visits Authorized [id number] Pending Review 05/12/2022 06/06/2023 1 1 Specialty Diagnoses / Procedures Referred By Contac t Referred To Contact Diagnoses Aneurysm of ascending aorta without rupture Procedures CT ANGIO CHEST (NONCORONARY) AR CT ANGIO, CHEST (NON-CORON), COMBO, INCL IMG PROC Daisy Murphy, [employer] [address] [place] [address] Referral ID Status Reason Start Date Expiration Date V isits Requested Visits Authorized [id number] New Request 05/09/2023 06/02/2024 1 1 FOR [...] BE BASED ON THE PRIMARY CLINICAL RECORDS. [employer] [facility]. provides no warranty or guarantee of the accuracy or completeness of information in this document.
--- NOTE | 2023-12-08 19:42 | RAD_ITS ---
INDICATION: dyspnea EXAMINATION/TECHNIQUE: X-RAY - XR Chest 1 View COMPARISON: CR ChestJan 2023 FINDINGS: LINES/DEVICES: None. LUNGS: No consolidation, edema or effusion. No pneumothorax. MEDIASTINUM AND CARDIOVASCULAR STRUCTURES: Cardiac silhouette not enlarged. Central airways and mediastinal contour are unremarkable. BONES AND SOFT TISSUES: Unremarkable. RAD/Chest 1 View (Portable) IMPRESSION: No radiographic evidence of acute cardiopulmonary disease. Electronically Signed: Eugenie Jenkins MD at 20:32 EST ,
[2023-12-08 19:44] LABS: Anion Gap 4 (5-15); BUN 13 mg/dL (7-18); BUN/Creat Ratio 10.2 RATIO (10-20); Calcium,Total 9.1 mg/dL (8.5-10.1); Chloride 112 mmol/L (98-107); Creatinine, Serum 1.27 mg/dL (0.70-1.30); EST Glomerular Filtration Rate 58 mL/min (>60); Est Glom Filt Rate - Afr Amer 71 mL/min (>60); Estimated Creatinine Clearance 55.15 ml/min; Glucose 122 mg/dL (74-106); Potassium 4.2 mmol/L (3.5-5.1); Sodium Level 143 mmol/L (136-145); Troponin-I HS 12 pg/mL (3.0-78.0)
--- NOTE | 2023-12-08 19:48 | CPS ---
x1 Albuterol given to pt. in ER as well
--- NOTE | 2023-12-08 20:27 | CPS ---
Pt. taken off BiPAP at this time. Pt. not needing oxygen supplementation at this time. Pt. breathing easy, with no signs of discomfort or distress.
--- NOTE | 2023-12-08 22:11 | PCM.HP.STD ---
HPI - General General Date of Admission: 12/08/23 Date of Service: 12/08/23 Chief Complaint: Dyspnea, cough, respiratory distress. HPI Narrative The patient is a 78 y/o M w/ PMHx: CKD stage III unclear subtype, Anxiety and Depression, Chronic back pain, COPD, HTN, HLD, Former tobacco use, TAA, CAD s/p CABG, Valvular heart disease s/p AVR who presents to the [facility] ED on 12/08/23 with history of dyspnea starting at approximately 4 PM with self administration of breathing treatments however he became more dyspneic with onset of cough on day of presentation with no recent fevers or chills but worsened prompting EMS call. In the ED upon arrival patient was noted to be significantly dyspneic, tripoding with evidence of respiratory distress prompting immediate transition onto BiPAP therapy. Workup in the ED included T97.8, heart initially 105 with most recent repeat 72, BP initially 201/121 with most recent repeat 154/91, respiratory rate 24, initially noted 96% brought in on a BiPAP with most recent noted 95% on BiPAP with FiO2 30%, CBC with WBC 9.3, hemotwelve 0.5, MCV 96.1, platelet 143 without marked shift, BMP with chloride 112, glucose 122, troponin 12, chest x-ray with no acute cardiopulmonary findings, blood culture x 2 pending per ED, rapid SARS COVID/influenza/RSV PCR negative, EKG with sinus rhythm with no acute evidence of ischemia. In the ED patient ministered albuterol, DuoNeb therapy as well as Solu-Medrol 125 mg IV x 1. [facility] Medical History (Updated 12/08/23 @ 23:[address] Yulissa Gurrola MD) Anxiety and depression Arthritis Atherosclerotic heart disease of [place] coronary artery without angina pectoris Back pain Chronic anemia Chronic cough CKD (chronic kidney disease), stage III COPD (chronic obstructive pulmonary disease) Essential (primary) hypertension Former tobacco use History of colon polyps History of non-ST elevation myocardial infarction (NSTEMI) (08/2016) Hyperlipidemia Lumbar stenosis Non-rheumatic aortic stenosis PTSD (post-traumatic stress disorder) Sciatica Thoracic aortic aneurysm (TAA) Valvular heart disease Wears dentures Wears glasses Wears hearing aid Home Medications aspirin 81 mg chewable tablet 81 mg PO DAILY@0800 [facility] [place] 09/04/16 [Rx Last Taken 12/08/23 07:00] tiotropium bromide 2.5 mcg/actuation mist for inhalation (Spiriva Respimat) 2 inh inhalation QAM breathing 04/19/21 [History Last Taken 12/08/23 07:00] pantoprazole 40 mg tablet,delayed release 40 mg PO DAILY gerd 03/13/22 [History Last Taken 12/08/23 07:00] paroxetine HCl 20 mg tablet 20 mg PO DAILY mood 03/13/22 [History Last Taken 12/08/23 07:00] acetaminophen 325 mg capsule (Tylenol) 650 mg PO Q6H PRN Pain 05/26/22 [History Last Taken Unknown] atorvastatin 40 mg tablet 40 mg PO QHS cholesterol #90 tabs 11/16/22 [Rx Last Taken 12/07/23 21:00] hydrochlorothiazide 25 mg tablet 25 mg PO DAILY blood pressu #90 tabs 11/16/22 [Rx Last Taken 12/08/23 07:00] lisinopril 20 mg tablet 20 mg PO QDAY blood pressure #90 tabs 11/16/22 [Rx Last Taken 12/08/23 07:00] prazosin 2 mg capsule 2 mg PO DAILY . 10/16/23 [History Last Taken 12/07/23 20:00] albuterol sulfate 1.25 mg/3 mL solution for nebulization 1.25 mg inhalation Q4H PRN shortness of breath or wheezing 12/08/23 [History Last Taken 12/08/23 07:00] Allergy/AdvReac Type Severity Reaction Status Date / Time cyclobenzaprine AdvReac Other Verified 12/08/23 23:22 hydrocodone [From [place]] AdvReac Hallucinati Verified 12/08/23 23:22 ons oxycodone AdvReac Hallucinati Verified 12/08/23 23:22 ons prednisone AdvReac Other Verified 12/08/23 23:22 Family History Father CAD (coronary artery disease) Brother CAD (coronary artery disease) Mother Cancer Brother Cancer Brother Cancer Surgical History H/O coronary artery bypass surgery (10/11/16) History of aortic valve replacement (10/11/16) History of left heart catheterization (09/02/16) Hx of colonoscopy Hx of surgical procedure Social History (Updated 12/08/23 @ 23:[address] Yulissa Gurrola MD) household members: spouse Smoking Status: Former smoker alcohol intake: never substance use type: does not use caffeine: Yes Type: coffee Number of servings: 3 ROS ROS Narrative Admission Review of Systems: CONSTITUTIONAL: No weight loss, fever, chills, + weakness or fatigue. HEENT: Eyes: No visual loss, blurred vision, double vision or yellow sclerae. Ears, Nose, Throat: No hearing loss, sneezing, congestion, runny nose or sore throat. SKIN: No rash or itching, lesions, wounds. CARDIOVASCULAR: No chest pain, chest pressure or chest discomfort, palpitations, edema, orthopnea, syncopal events. RESPIRATORY: + Dyspnea, cough without marked sputum, wheezing, respiratory distress, tripoding, difficulty speaking. No hemoptysis. GASTROINTESTINAL: No anorexia, nausea, vomiting or diarrhea, abdominal pain, melena, BRBPR. GENITOURINARY: No dysuria, frequency, urgency or retention. NEUROLOGICAL: No headache, dizziness, syncope, paralysis, ataxia, numbness or tingling in the extremities, focal weakness, change in bowel or bladder control, seizure. MUSCULOSKELETAL: + muscle, back pain, joint pain or stiffness. HEMATOLOGIC: + Chronic anemia, easy bleeding/bruising. LYMPHATICS: No enlarged nodes. No history of splenectomy. PSYCHIATRIC: + History of anxiety and depression. ENDOCRINOLOGIC: No reports of sweating, cold or heat intolerance. No polyuria or polydipsia. ALLERGIES: No history of asthma, hives, eczema or rhinitis. Vital Signs Vital Signs Vital Signs: 12/08/23 19:09 12/08/23 19:16 12/08/23 19:16 Temperature 96.0 F L 96.0 F L Temperature Source Temporal Temporal Pulse Rate 105 H 101 H Respiratory Rate 24 H 20 H Respiratory Effort Short of Breath Respiratory Pattern Tachypnea Blood Pressure 201/121 H 177/113 H Blood Pressure Mean 147 134 Pulse Ox 96 98 Oxygen Delivery Method Bi-pap Bi-pap Bi-pap Fraction of Inspired Oxygen (FIO2) 40 12/08/23 19:22 12/08/23 19:33 12/08/23 19:14 Temperature 96.0 F L Temperature Source Temporal Pulse Rate 91 102 H Respiratory Rate 20 H 32 H Respiratory Effort Respiratory Pattern Tachypnea Blood Pressure 127/94 H Blood Pressure Mean 105 Pulse Ox 96 95 97 Oxygen Delivery Method Bi-pap Bi-pap Fraction of Inspired Oxygen (FIO2) 30 30 40 12/08/23 19:26 12/08/23 21:38 Temperature 97.8 F Temperature Source Oral Pulse Rate 96 72 Respiratory Rate 24 H 22 H Respiratory Effort Respiratory Pattern Tachypnea Blood Pressure 154/91 H Blood Pressure Mean 112 Pulse Ox 97 Oxygen Delivery Method Room Air Fraction of Inspired Oxygen (FIO2) Weight Weight: 199 lb 11.821 oz Body Mass Index (BMI) 28.6 Physical Exam Narrative Physical Examination: General: Awake, alert, oriented x 3 and cooperative, seated upright in the ED bed, significantly improved since initial ED arrival, being taken off BiPAP, able to speak in more than 1-2 word sentences, respiratory distress improved. Skin: Normal color, normal turgor, no icterus, no cyanosis. HEENT: AT/NC, EOMI, PERRLA, dry MM, no carotid bruits or JVD noted, BiPAP being removed. Lungs: BiPAP currently being removed, still diminished, mildly increased respiratory rate but distress has significantly improved, diffuse inspiratory and expiratory wheezing ongoing, no rales or rhonchi. Heart: Currently regular rate and rhythm; no gallop, rub audible. Abdomen: Soft, overweight, NTTP, ND, normal BS, no appreciated HSM. Extremities: No cyanosis, clubbing, or edema. Neurological: Patient awake, alert, oriented as noted, cognitive function intact; pupils equally reactive to light and accommodation, cranial nerves II-XII grossly normal, moving all 4 extremities, no focal deficits, strength notably improved since respiratory interventions alleviated respiratory distress and BiPAP being removed as noted, moderately globally decreased secondary to acute presentation. Psychiatric: Affect appears fatigued, no acute evidence of depressive or anxiety feelings but does have underlying history. Results Lab / Micro Data 12/08/23 19:18 12/08/23 19:18 Labs: Laboratory Results - last 24 hr 12/08/23 19:18: WBC 9.3, RBC 4.12 L, Hgb 12.5 L, Hct 39.6 L, MCV 96.1 H, MCH 30.3, MCHC 31.6 L, RDW Std Deviation 46.0 H, RDW Coeff of Alyssa 13.0, Plt Count 143 L, MPV 10.0, Immature Gran % (Auto) 0.400, Neut % (Auto) 44.3 L, Lymph % (Auto) 29.2, Gillespie % (Auto) 9.8, Eos % (Auto) 15.0 H, Baso % (Auto) 1.3 H, Absolute Neuts (auto) 4.1, Absolute Lymphs (auto) 2.72, Nucleated RBC % 0, Sodium 143, Potassium 4.2, Chloride 112 H, Carbon Dioxide 27.0, Anion Gap 4 L, BUN 13, Creatinine 1.27, Estim Creat Clear Calc 55.15, Est GFR (MDRD) Af Amer 71, Est GFR (MDRD) Non-Af 58 L, BUN/Creatinine Ratio 10.2, Glucose 122 H, Calcium 9.1, Troponin I High Sens 12 Micro: Microbiology 12/08/23 20:23 Mucosa - Nose SARS-CoV-2, Influenza & RSV (PCR) - Final Imaging Radiology Impression Chest X-Ray 12/08/23 19:42 IMPRESSION: No radiographic evidence of acute cardiopulmonary disease. Electronically Signed: Eugenie Jenkins MD at 20:32 EST Reading Location ID and State: [facility] / [place] Tel , Service support , Assessment & Plan Assessment/Plan (1) Respiratory failure: (2) COPD exacerbation: PLAN: Plan The patient is a 78 y/o M w/ PMHx: CKD stage III unclear subtype, Anxiety and Depression, Chronic back pain, COPD, HTN, HLD, Former tobacco use, TAA, CAD s/p CABG, Valvular heart disease s/p AVR who presents to the [facility] ED on 12/08/23 with history of dyspnea starting at approximately 4 PM with self administration of breathing treatments however he became more dyspneic with onset of cough on day of presentation with no recent fevers or chills but worsened prompting EMS call. #1. Acute Hypoxic Respiratory Failure with respiratory distress noted secondary to Acute on Chronic COPD exacerbation w/ Acute respiratory insufficiency/failure: Will admit to PCU, in the ED notably improved and currently able to wean off BIPAP however to be cautious will transition as noted to PCU in case of recurrent worsening status and BIPAP needs, maintain on oxygen with wean as tolerated to room air, continue ATC duonebs, PRN albuterol, IV methylprednisolone, HOB, IS parameters, will obtain sputum Cx, respiratory viral panel, procalcitonin, will hold on immediately abx therapy but low threshold to add if appropriate. #2. CAD: Status post CABG w/ SVG-RPDA and SVG-OM1 w/ AVR w/ 25 mm Trifecta Bioprosthetic Valve 10/11/2016, will continue aspirin, statin, lisinopril, not on beta-nav therapy possibly secondary to issues with bradycardia versus underlying COPD. #3. Valvular heart disease: Status post AVR, most recent echocardiogram noted 06/14/2022 with well appearing bioprosthetic aortic valve. Encourage continued outpatient follow-up with cardiology as previously arranged. #4. Hypertension: Continue home regimen including lisinopril, hydrochlorothiazide, PRN hydralazine. #5. Hyperlipidemia: We will continue patient on statin therapy. #6. Thoracic aortic aneurysm: Most recent imaging noted 09/07/2023 with chest CTA with nominal aortic aneurysm without any evidence for periaortic leak or dissection measuring approximately 4.7 cm, encourage continued outpatient follow-up and observation as previously arranged. #7. Chronic back pain, lumbar stenosis: Encourage frequent positional changes, offloading, Tylenol as needed. #8. Former tobacco use: Encourage continued tobacco cessation. #9. Chronic macrocytic anemia: Admission hemoglobin 12.5, MCV 96.1, baseline hemoglobin appears 12-13, most recent prior to this 10/16/2023 hemoglobin 12.5, stable, continue to trend. #10. Chronic thrombocytopenia: Unclear exact etiology, admission platelet 143, similar to baseline, continue to trend. #11. Chronic Kidney Disease Stage III, unclear subtype per GFR trending: Admission BUN/Cr 13/1.27, baseline renal function primarily 1.2-1.3, repeat BMP in AM. #12. Anxiety and depression: We will continue patient on paroxetine regimen. #13. GERD: We will continue patient on PPI. #14. DVT prophylaxis: Lovenox. #15. CODE status: Patient JOCELYN is his who is present and living will is currently in place. Discussed CODE status at length including difference between FULL code, DNR-CCA and DNR-CC status. Following discussions about the differences in these status, requested Full Code, amenable to repeat usage of BIPAP if necessary. Advanced Care Planning Face to Face Time: 16 minutes. Charges/Coding Visit Charges Inpatient E&M: 74876 Init Hosp L3 Procedures Hospitalists Procedures: 69780 Advncd Care Plan 30 Min
--- OUTSIDE RECORDS SUMMARY | 2023-12-08 22:35 | XMS RPT_ITS | CCD ---
Author Name Unknown Address [address] [place] [address] Organization [facility] Care Team Providers Care Fiberglass Boat Parts Finisher Name Role Phone Jacqueline MCCLOUD, Sobia Noriega [...] Stoner Unavailable Dr. Vijay Howell MD Unavailable [facility] Unavailable Dr. Luis Bauman MD Unavailable Mitchell MESA, Jesica Morton Unavailable Unavailable Gogoi (scribe), Hemanta Unavailable Unavaila Daiana Springer LPN Unavailable Unavailable Letitia Cabrera MD Unavailable Viktoria Patel PA-C Unavailable Mohini Moseley Unavailable Unavailable Pradip MCCLOUD, Hillary Paredes Unavailable Unavail able Berenice Albarado LPN Unavailable Unavailable Viktoria Dean RN Unavailable Unavaila ble Jovanny MERCHANDISING SPECIALIST, Tej Unavailable Unavailable Michael (Scribe), Deniz Unavailable Unavailab halima Hinton PA-C, Brittni De La Vega Unavailable [phone] Kwan ([facility] Ovidio Unavailable Unavailab halima Rubi FINISH PATCHER, Lawanda Unavailable Unavailable Richert MERCHANDISING SPECIALIST, Lakia Paredes Unavailable Unavailab le Paul MERCHANDISING SPECIALIST, Gali Winkler Unavailable Unavailab halima Rock MERCHANDISING SPECIALIST, Ibis Sullivan Unavailable Unavailab halima Garcia MD, Geoffrey Noriega Unavailable Vess MERCHANDISING SPECIALIST, Evaangeles Paredes Unavailable Unavailable [place] MERCHANDISING SPECIALIST, Renata Farmer Unavailable Unavaila ble Unavailable Unavailable [facility] [place] Unavailable Medications Current Medications Medication Drug Class(es) [...] disease (20 sources) Atherosclerotic heart disease of [place] coronary artery without angina pectoris; Translations: [Coronary [...] (2 sources) Long-term drug therapy; Translations: [Other ad terminal makeup operator (current) drug therapy] Onset: 11-08-2016 11-08-2016 Unclassified [...] for MCR Well Adult : reviewed by [facility] 04-12-2023 Unclassified (8 sources) Follow Up for [...] Multiple chronic conditions follow-up : reviewed by [facility] 09-18-2022 Unclassified (8 sources) Dizziness - The [...] 11-10-2016 Episodic Other aftercare (2 sources) Other ad terminal makeup operator (current) drug therapy; Translations: [Other long-term (current) drug therapy] Onset: 11-08-2016 11-08-2016 Episodic Other lower respiratory disease (8 sources) Dyspnea; Translations: [Shortness of breath] Onset: 09-11-2016 Resolved: 11-10-2016 09-11-2016 Episodic Unclassified (2 sources) Coronary artery bypass graft; Translations: [Presence of aortocoronary bypass graft] Onset: 10-31-2016 10-31-2016 Unclassified (8 sources) Follow up consultation - The patient is here to follow-up after Emergency Room/Urgent Care on : (05/26/22 [facility]). Current symptoms include back pain radiating down [...] here to follow-up after Emergency Room/Urgent Care ([facility] with back pain.) on : (05-20-22). Note [...] The patient has a Healthcare Power of Manufacturing Mechanic and a Living Will. Note for MCR [...] The patient has a Healthcare Power of Manufacturing Mechanic and a Living Will. Note for MCR [...] patient is here to follow-up after hospitalization ([facility]) on : (10/11/16). Current symptoms include chest pain, muscle pain (right side of neck) and weakness (numbness in left leg). Note for Consultation follow-up : Patient was in the hospital and had an open heart surgery done. 12-08-2016 Unclassified (8 sources) [ADDITIONAL REASON] Transition into care - The patient is transitioning into care from another physician ([facility] - 11/10/16) and a summary of care [...] here to follow-up after Emergency Room/Urgent Care ([facility]) on : (04/28/12). Current symptoms include other (episodes of feeling lightheaded, nausea and tingling in hands. episodes last 20 minutes at a time. patient had 2 episodes yesterday and [facility] at his place of employment in [place], [place].). 05-03-2012 Unclassified (8 sources) Leg Pain [...] here to follow-up after Emergency Room/Urgent Care ([facility] with back pain.) on : (05-20-22). Note [...] 07:54-0500 Body height 177.8 cm Tej [facility]anny [facility] [place] [employer] [place]. 11-29-2023 07:54-0500 Body mass index (BMI) [Ratio] 28.7 kg/m2 [facility] [place] [employer] [place]. 11-29-2023 07:54-0500 Body surface area Derived from formula 2.09 m2 [facility]j [facility]ovanny [facility], [employer] [employer] [place]. 11-29-2023 07:54-0500 Body weight 90.72 kg [facility]j [facility]ovanny [facility], [employer] [employer], [place]. 11-29-2023 07:54-0500 Diastolic blood pressure 67 mm[Hg] [facility]j Jov[facility], [employer] [employer], [place]. Encounters Encounter Date Encounter Type Care Provider Facility Start: 11-29-2023 End: 11-29-2023 Orders Wade Barclay MD Work Phone: [employer]. Start: 11-29-2023 Review Wade Barclay MD Work Phone: [employer]. Start: 11-29-2023 End: 11-29-2023 Office outpatient visit 15 minutes Wade Barclay MD Work Phone: [employer]. Start: 09-17-2023 End: 09-25-2023 Telephone follow-up Wade Barclay MD Work Phone: [employer]. Start: 06-11-2023 End: 06-11-2023 Subsequent hospital visit by physician Daisy Murphy AUTO APPRENTICE MECHANIC-CFD ENGINEER Work Phone: [facility] Procedures Date Procedure Procedure Detail Performing Clinician [...] RTN OFFICE VISIT - [facility] mos rtn [facility] Start: 18-Oct-2023 7:10 MD Wade Barclay Appointment Request [facility] Start: 06-11-2023 End: 06-11-2023 Patient encounter procedure [facility] Start: 06-01-2023 Influenza vaccination INFLUENZA VACC INE (#1) [facility] Start: 06-01-2022 Influenza vaccination INFLUENZA VACC INE (#1) [facility] Start: 05-12-2022 End: 05-12-[address] ANGIO CHEST (NONCORONARY) Imaging Routine Ascending aorta dilation Expected: 05/12/2022, Expires: 05/12/2023 [facility] Immunizations Immunization Date Immunization Notes Care Provider Marcy boogie 03-27-2022 pneumococcal polysaccharide vaccine, 23 romy Barclay MD Work Phone: [facility] Payers Date Payer Category Payer Unknown [id number] 2014 Unknown [id number] 2014 Medicare [id number] 2014 Medicare MEDICARE MEDICAR E A AND B [id number] 2014-Present [address] [place] [address] [id number] 1945 Unknown [id number] 1945 Unknown [id number] 1945 Unknown [id number] 1945 Unknown [id number] Social History Date Type Detail Facility Start: 05-12-2022 [facility] End: 10-01-2005 History of tobacco use Current smoker [facility] Start: 05-12-2022 Cigarettes smoked current (pack per day) - Reported 0.5 [facility] Start: 05-12-2022 Tobacco use and exposure Smoke less tobacco non-user [facility] Start: 1945 Sex Assigned At Not on file O [facility] End: 10-01-2005 History of tobacco use Cigarette Smoker [facility] Start: 05-12-2022 [facility] Tobacco Use: Tobacco Use: ; F ormer smoker. [facility]. Work Phone: Instructions 05-12-2022 Patient Instructions Note Date & Type Note Facility 05-12-2022 Instructions PEREZ Bailon - 05/12/2022 2:42 PM EDT Thank you for choosing [facility] Division of Cardiac Surgery & [facility] for your cardiac surgical needs. We will plan to see you back in our clinic in 12 months for follow-up with Dr. Haro. In preparation for this appointment, we will need the following testing completed: CT Scan - in 1 year Echocardiogram both now near [place] and again in 1 year. For Questions regarding these appointments or if you need to cancel them, please call [phone] Haro s senior administrative support. Guidelines for maintaining a healthy and stable Aorta - Blood Pressure Goals: SBP (top number) < 130, DBP (bottom number) < 90, Heart rate < 80. You should monitor these numbers at home on a regular basis. If you notice they are above these recommendations, please see you Primary Doctor (family doctor) or Rigging Helper (heart doctor) right away. Avoid strenuous exercises [...] AORTIC ANEURYSM. documented in this encounter [facility] History of Present illness Narrative 05-12-2022 PEREZ [...] s/p AVR and CABG in [address] [place] Howell is their hogshead mat assembler in [place], [place], has provided the referral. He presents [...] in activity due to symptoms, even during gfhi-fkkp-ruwoohyw activity, e.g. walking short distances (20-100 m). [...] aorta following CAB 2 AVR (tissue) in [place] in 2016 who I had the pleasure of seeing today, in the company of his Daria with my advanced practice provider, Tyrel Feliz APRN, CNP. They drove up from the [place] area about 1 1/2 h away. The [...] him to the A[facility] Center at the [facility]. Geoffrey Haro MD, MSc, [facility], [facility] geophysical computer Attending Physician, [facility] Center Division of Cardiac Surgery [facility] [address] [place] [address] / [phone] (fax) [email or web address] documented in this encounter [facility] Evaluation note Note Date & Type Note Facility documented in this encounter [facility] Summary Purpose Family History Cancer Status:Active [...] Contact Diagnoses Ascending aorta dilation Procedures ECHOCARDIOGRAM NH ECHO HEART XTHORACIC,COMPLETE W DOPPLER Tyrel Feliz, AUTO APPRENTICE MECHANIC-CFD ENGINEER [address] [place] [address] Referral ID Status Reason Start Date Expiration Date V isits Requested Visits Authorized [id number] New Request 05/12/2022 06/06/2023 1 1 Specialty Diagnoses / Procedures Referred By Contac t Referred To Contact Diagnoses Ascending aorta dilation Procedures CT ANGIO CHEST (NONCORONARY) [place] CT ANGIO, CHEST (NON-CORON), COMBO, INCL IMG PROC yTrel Feliz, AUTO APPRENTICE MECHANIC-CFD ENGINEER [address] [place] [address] Referral ID Status Reason Start Date Expiration Date V isits Requested Visits Authorized [id number] New Request 05/12/2022 06/06/2023 1 1 Referral ID Status Reason Start Date Expiration Date V isits Requested Visits Authorized [id number] New Request 05/12/2022 06/06/2023 1 1 Additional Source Comments (unrecognized sect ion and content) No Status Records FoundNo Status Records FoundNo Status Records FoundNo Status Records Found INFORMATION SOURCE (unrecogn ized section and content) DATE CREATED AUTHOR AUTHOR'S ORGANIZ ATION 12/10/2019 [facility] DATE CREATED AUTHOR AUTHOR'S ORGANIZ ATION 04/06/2023 [facility] DATE CREATED AUTHOR AUTHOR'S ORGANIZ ATION 06/18/2023 [facility] Reason for Visit (unrecogniz ed section and content) Specialty Diagnoses / Procedures Referred By Contac t Referred To Contact Diagnoses Ascending aorta dilation Procedures CT ANGIO CHEST (NONCORONARY) [place] CT ANGIO, CHEST (NON-CORON), COMBO, INCL IMG PROC Tyrel Feliz, AUTO APPRENTICE MECHANIC-CFD ENGINEER [address] [place] [address] Referral ID Status Reason Start Date Expiration Date V isits Requested Visits Authorized [id number] Pending Review 05/12/2022 06/06/2023 1 1 Specialty Diagnoses / Procedures Referred By Contac t Referred To Contact Diagnoses Aneurysm of ascending aorta without rupture Procedures CT ANGIO CHEST (NONCORONARY) [place] CT ANGIO, CHEST (NON-CORON), COMBO, INCL IMG PROC Daisy Murphy, AUTO APPRENTICE MECHANIC-CFD ENGINEER [address] [place] [address] Referral ID Status Reason Start Date Expiration Date V isits Requested Visits Authorized [id number] New Request 05/09/2023 06/02/2024 1 1 FOR [...] BE BASED ON THE PRIMARY CLINICAL RECORDS. [email or web address] [facility]. provides no warranty or guarantee of the accuracy or completeness of information in this document.
[2023-12-08 23:24] LABS: Procalcitonin < 0.04 ng/mL (0.00-0.09)
[2023-12-09] VITALS (11 sets, daily range): BP systolic 119–130; BP diastolic 80–92; PULSE 75–99; RESP 12–22; TEMP 36.5–36.6; O2SAT 93–97; BMI 28.3
[2023-12-09] MEDS: Doxazosin 1 MG Tablet 1.5 MG PO ×2 (00:28→21:14)
[2023-12-09] MEDS: Atorvastatin Calcium 40 MG Tablet PO ×2 (00:28→21:14)
[2023-12-09] MEDS: Ipratropium/Albuterol Sulfate 3 ML AMPUL.NEB INHALATION ×5 (00:54→20:49)
[2023-12-09] MEDS: 0.9% Saline Lock 10 ML Syringe IV ×2 (05:16→10:13)
[2023-12-09 06:54] LABS: Absolute Lymphocyte Count 0.41 X10^3/uL (0.83-4.51); Absolute Neutrophil Count 4.2 X10^3/uL (2.0-7.7); Basophil# 0.01 X10^3/uL; Basophil% 0.2 % (0-1); Eosinophil# 0.01 X10^3/uL; Eosinophils% 0.2 % (0-5); Hematocrit 36.8 % (40-54); Hemoglobin 11.9 g/dL (13.0-16.5); Lymphocyte # 0.41 X10^3/ul (0.83-4.51); Lymphocyte % 8.8 % (19-41); Mean Corp Hgb Conc 32.3 g/dL (32-36); Mean Corpuscular Hgb 30.6 pg (27.0-32.0); Mean Corpuscular Volume 94.6 fL (80-94); Mean Platelet Vol. 10.6 fl (6.2-12.0); Monocyte# 0.06 X10^3/uL; Monocyte% 1.3 % (0-10); NRBC Flagged by Analyzer 0 % (0-5); Neutrophil # 4.15 X10^3/uL (2.7-7.7); Neutrophil % 89.1 % (47-70); POSITIVE DIFFERENTIAL YES; Platelet Count 123 K/mm3 (150-450); RBC Distribution Width CV 12.9 % (11.6-14.6); RBC Distribution Width SD 44.5 fl (35.1-43.9); Red Blood Count 3.89 M/mm3 (4.6-6.2); White Blood Count 4.7 K/mm3 (4.4-11.0)
[2023-12-09 08:30] LABS: ALB/GLOB Ratio 1.2 RATIO (0.9-2.4); AST(SGOT) 18 U/L (15-37); Alanine Aminotransfer ALT/SGPT 15 U/L (16-61); Albumin, Serum 3.5 g/dL (3.2-5.0); Alkaline Phosphatase 77 U/L (45-117); Anion Gap 7 (5-15); BUN 16 mg/dL (7-18); BUN/Creat Ratio 11.5 RATIO (10-20); Calcium,Total 9.1 mg/dL (8.5-10.1); Chloride 111 mmol/L (98-107); Creatinine, Serum 1.39 mg/dL (0.70-1.30); EST Glomerular Filtration Rate 53 mL/min (>60); Est Glom Filt Rate - Afr Amer 64 mL/min (>60); Estimated Creatinine Clearance 50.18 ml/min; Globulin 2.8 g/dL (2.2-4.2); Glucose 177 mg/dL (74-106); Potassium 4.3 mmol/L (3.5-5.1); Protein, Total 6.3 g/dL (6.4-8.2); Sodium Level 142 mmol/L (136-145)
[2023-12-09] MEDS: hydroCHLOROthiazide 25 MG Tablet PO (08:39)
[2023-12-09] MEDS: Aspirin 81 MG TAB.CHEW PO (08:39)
[2023-12-09] MEDS: Pantoprazole Sodium 40 MG Tablet PO (08:39)
[2023-12-09] MEDS: Lisinopril 20 MG Tablet PO (08:39)
[2023-12-09] MEDS: Paroxetine 20 MG Tablet PO (08:40)
[2023-12-09] MEDS: Enoxaparin 40 MG/0.4 ML Syringe SC (08:40)
--- NOTE | 2023-12-09 12:05 | PCM.PN.HOSP ---
Reason for Visit Reason for Visit: Diagnoses Chronic obstructive pulmonary disease with (acute) exacerbation (12/08/23) Respiratory failure, unspecified, unspecified whether with hypoxia or hypercapnia (12/08/23) Subjective Subjective Patient presented to the ED yesterday afternoon with acute onset shortness of breath that was not relieved with home breathing treatments. Was admitted for presumed COPD exacerbation. Patient seen at bedside this morning, present. Patient was laying fairly comfortably in bed, conversing normally, in no acute distress. He was breathing fairly comfortably on room air at rest. Patient states that he feels moderately better than on admission and is about 75% back to normal. He denies any fevers or chills, cough or sputum production. On chart review, patient was hospitalized at [facility] from 10/15-10/17 for a similar presentation. Patient and state that patient has never been seen by a video game animator. They think that he was diagnosed with COPD when he had PFTs done about 2 to 3 years ago. He has been using his Spiriva inhaler daily and albuterol inhaler as needed. They were interested in being seen by video game animator while in the hospital if possible as well as establishing with a video game animator on discharge. Objective Data Objective Data Vital Signs: Vital Signs Temp Pulse Resp BP Pulse Ox O2 Del Method FiO2 97.9 F 86 20 H 126/92 H 93 Room Air 60 12/09/23 05:14 12/09/23 11:59 12/09/23 11:59 12/09/23 05:14 12/09/23 07:58 12/09/23 07:58 12/09/23 07:55 Oxygen Delivery Method Room Air Weight: 89.8 kg Body Mass Index (BMI) 28.3 Lab / Micro Data 12/09/23 05:27 12/09/23 05:27 Labs: Laboratory Results - last 24 hr 12/08/23 19:18: WBC 9.3, RBC 4.12 L, Hgb 12.5 L, Hct 39.6 L, MCV 96.1 H, MCH 30.3, MCHC 31.6 L, RDW Std Deviation 46.0 H, RDW Coeff of Alyssa 13.0, Plt Count 143 L, MPV 10.0, Immature Gran % (Auto) 0.400, Neut % (Auto) 44.3 L, Lymph % (Auto) 29.2, Duval % (Auto) 9.8, Eos % (Auto) 15.0 H, Baso % (Auto) 1.3 H, Absolute Neuts (auto) 4.1, Absolute Lymphs (auto) 2.72, Nucleated RBC % 0, Sodium 143, Potassium 4.2, Chloride 112 H, Carbon Dioxide 27.0, Anion Gap 4 L, BUN 13, Creatinine 1.27, Estim Creat Clear Calc 55.15, Est GFR (MDRD) Af Amer 71, Est GFR (MDRD) Non-Af 58 L, BUN/Creatinine Ratio 10.2, Glucose 122 H, Calcium 9.1, Troponin I High Sens 12 12/08/23 22:45: Procalcitonin < 0.04 12/09/23 05:27: WBC 4.7, RBC 3.89 L, Hgb 11.9 L, Hct 36.8 L, MCV 94.6 H, MCH 30.6, MCHC 32.3, RDW Std Deviation 44.5 H, RDW Coeff of Alyssa 12.9, Plt Count 123 L, MPV 10.6, Immature Gran % (Auto) 0.400, Neut % (Auto) 89.1 H, Lymph % (Auto) 8.8 L, Duval % (Auto) 1.3, Eos % (Auto) 0.2, Baso % (Auto) 0.2, Absolute Neuts (auto) 4.2, Absolute Lymphs (auto) 0.41 L, Nucleated RBC % 0, Sodium 142, Potassium 4.3, Chloride 111 H, Carbon Dioxide 24.0, Anion Gap 7, BUN 16, Creatinine 1.39 H, Estim Creat Clear Calc 50.18, Est GFR (MDRD) Af Amer 64, Est GFR (MDRD) Non-Af 53 L, BUN/Creatinine Ratio 11.5, Glucose 177 H, Calcium 9.1, Total Bilirubin 0.50, AST 18, ALT 15 L, Alkaline Phosphatase 77, Total Protein 6.3 L, Albumin 3.5, Globulin 2.8, Albumin/Globulin Ratio 1.2 Micro: Microbiology 12/09/23 01:00 Mucosa - Nasopharyngeal Respiratory Panel (PCR) - Final 12/08/23 20:23 Mucosa - Nose SARS-CoV-2, Influenza & RSV (PCR) - Final Radiography Diagnostic Testing: Radiology Impression Chest X-Ray 12/08/23 19:42 IMPRESSION: No radiographic evidence of acute cardiopulmonary disease. Electronically Signed: Eugenie Jenkins MD at 20:32 EST , Physical Exam Const alert, oriented x3, no apparent distress and average body habitus Constitutional Narrative: Pleasant elderly male, sitting up comfortably in bed, conversing normally, in no acute distress. General Appearance: cooperative and comfortable HEENT normocephalic, head/scalp atraumatic, hearing grossly normal bilaterally, nasal mucous membranes and turbinates normal and moist oral mucous membranes Eyes PERRL, EOMs intact bilaterally and conjunctivae normal Neck full ROM Chest inspection of chest normal Resp normal respiratory effort and no use of accessory muscles Resp Narrative: Breathing comfortably on room air. Mildly decreased breath sounds bilaterally, no wheezing or crackles noted. Cardio regular rate, regular rhythm, no murmurs and peripheral pulses 2+ throughout GI normal to inspection, nondistended, normoactive bowel sounds, soft to palpation, non-tender and non-distended Back/Spine normal ROM Extremity normal to inspection, full ROM and no pedal edema Skin no rashes or lesions noted Neuro moves all extremities and no focal motor deficits Speech: speech normal Psych mental status grossly normal Assessment & Plan Assessment/Plan (1) COPD exacerbation: (2) Respiratory failure: PLAN: Plan Patient is a 78-year-old male who presented to [facility] ED on 12/08/2023 with worsening shortness of breath. 1. Acute hypoxic respiratory failure secondary to acute COPD exacerbation, resolved ? Presented with severe shortness of breath and was reportedly tripoding in the ED. Was given a DuoNeb breathing treatment, IV Solu-Medrol 25 mg x 1 and started on BiPAP. Had significant improvement on the BiPAP, was weaned off to room air in the ED. ? Chest x-ray unremarkable. WBC count normal, labs unremarkable. Patient generally noninfectious appearing, denied any recent URI symptoms. Respiratory PCR panel negative. ? Will continue IV Solu-Medrol 40 mg daily and scheduled DuoNebs for now. Pulmonology consulted for further evaluation and home-going recommendations. Continue home Spiriva. 2. Former tobacco use ? Quit in 2006. Encouraged continued cessation. Chronic medical conditions: ? History of CAD s/p CABG, hypertension, hyperlipidemia: Continue home aspirin, statin, hydrochlorothiazide, lisinopril. ? Valvular heart disease s/p aortic valve replacement: Stable. ? Thoracic aortic aneurysm: Continue outpatient monitoring. ? Chronic back pain with lumbar stenosis: Continue Tylenol as needed. ? Mild chronic anemia: Hemoglobin 12.5 on admit, at baseline. Stable. ? CKD stage III: Creatinine 1.2 on admit, at baseline. Stable. ? Anxiety and depression: Continue home paroxetine and prazosin. ? GERD: Continue home PPI. DVT prophylaxis: Lovenox CODE STATUS: Full code, verified Expected disposition: Home, 1 to 2 days Total clinical time spent by myself addressing the patient's medical issues, reviewing all the data, and collaborating with patient's care team: 35 minutes. Charges/Coding Visit Charges Inpatient E&M: 83012 Subs Hosp L2
[2023-12-10] VITALS (7 sets, daily range): BP systolic 124–139; BP diastolic 82–90; PULSE 74–89; RESP 16–20; TEMP 36.6–36.7; O2SAT 92–96; BMI 28.3
[2023-12-10 05:26] LABS: Anion Gap 5 (5-15); BUN 19 mg/dL (7-18); Calcium,Total 9.5 mg/dL (8.5-10.1); Chloride 110 mmol/L (98-107); Creatinine, Serum 1.27 mg/dL (0.70-1.30); EST Glomerular Filtration Rate 58 mL/min (>60); Est Glom Filt Rate - Afr Amer 71 mL/min (>60); Estimated Creatinine Clearance 54.93 ml/min; Glucose 137 mg/dL (74-106); Potassium 4.1 mmol/L (3.5-5.1); Sodium Level 143 mmol/L (136-145)
[2023-12-10] MEDS: Ipratropium/Albuterol Sulfate 3 ML AMPUL.NEB INHALATION ×3 (08:01→15:31)
[2023-12-10] MEDS: Pantoprazole Sodium 40 MG Tablet PO (09:37)
[2023-12-10] MEDS: hydroCHLOROthiazide 25 MG Tablet PO (09:37)
[2023-12-10] MEDS: Paroxetine 20 MG Tablet PO (09:37)
[2023-12-10] MEDS: Aspirin 81 MG TAB.CHEW PO (09:38)
[2023-12-10] MEDS: 0.9% Saline Lock 10 ML Syringe IV (09:38)
[2023-12-10] MEDS: Lisinopril 20 MG Tablet PO (09:38)
[2023-12-10] MEDS: Enoxaparin 40 MG/0.4 ML Syringe SC (09:39)
--- NOTE | 2023-12-10 11:00 | CASEMGMT ---
RN CM Face to Face with patient for initial transition planning/care coordination assessment. RN CM introduced self and role at [facility]. Patient lying in bed, alert and oriented, at bedside. Patient willing to participate in assessment and is able to answer all questions appropriately. Care providers, pharmacy, and demographics verified. PCP: Deny Specialists: Deyvi AMBRIZ Preferred Pharmacy: [facility] Retail Insurance: [place], [facility] Prescription Benefit: yes Living Will/HPOA: yes, Daria Young LNOK: Living Arrangements: Patient lives with in single story home with 1 step to enter. Patient states he is independent at home. Transportation: self, DME/HHC: Patient has raised toilet, cane, walker, and nebulizer at home. No previous HHC or SNF Patient wishes to discharge home, denies need for home health at this time. Patient states he has no further needs or concerns at this time. CM to follow for discharge planning needs that may arise. Disposition Plan: Patient to discharge home with family support and follow-up plans in place. Edwige MALDONADO, RN, CM
--- NOTE | 2023-12-10 12:07 | CON.PCM.CC_ITS ---
Assessment & Plan Assessment/Plan (1) COPD exacerbation: (2) Hypertension: (3) History of aortic valve replacement: PLAN: Plan RECOMMENDATIONS: 1. Cardiac optimization 2. Transition to 40 mg of prednisone and wean over the next 10 to 12 days 3. Follow-up with nurse practitioner 2 weeks after discharge 4. Walking oximetry prior to discharge 5. Follow-up with nurse practitioner as an outpatient for PFT and low-dose CT 6. Potential discharge later today pending walking oximetry from a pulmonary perspective IMPRESSIONS: 1. Acute hypoxic respiratory failure secondary to probable COPD exacerbation versus hypertensive emergency Patient with only mild COPD by previous PFT criteria. However, this is quite a day to test. Patient is reporting a change in sputum along with increased cough and shortness of breath. Patient has responded well to Solu- Medrol and BiPAP rescue. Patient appears to be doing well at this time. Will transition patient to prednisone therapy and wean over the next 10 to 12 days. Patient could be treated with azithromycin. Patient did present with significant hypertension on presentation. Patient may have an element of flash pulmonary edema associated with this pressure, but does not appear to be significantly volume overloaded at this time. Patient would benefit from cardia c optimization and outpatient pulmonary follow-up for PFT 2. CAD status post CABG/hypertension/hyperlipidemia/AVR/chronic pain syndrome/anemia/CKD stage III/anxiety/GERD Complicates care, management, recovery and prognosis. Patient with significant hypertension on presentation. It is unclear if this is related to a cause or effect of problem #1. Patient does have a history of aortic valve replacement along with diastolic dysfunction. Patient does not appear to be significantly volume overloaded at this time. Okay to continue with baseline medications. HPI Consult Data Date of Consult: 12/10/23 HPI Narrative Reason for Consultation: COPD exacerbation HPI Narrative: PURA VEGA is a 78 M, with past medical history listed below, who presents to [facility] on 12/08/2023 secondary to progressive shortness of breath. Patient reportedly has had progressive shortness of breath over the last 1 to 2 weeks. Patient does carry diagnosis of COPD and had noted a change in sputum from clear/white to green. Patient also reported significant discomfort with ambulation. Patient does have a history of coronary artery disease status post CABG, but had not reported any particular chest pain. In the ER, patient was afebrile, but tachycardic at 105 bpm. Patient also noted to be significantly hypertensive at 201/121. Patient was tachypneic as high as 32 breaths/min, but did respond to BiPAP therapy. Laboratory data showed a white blood cell count of 9.3, hemoglobin 12.5 and platelets of 143. Patient did have 15% eosinophils noted on differential. Chemistry showed an elevated bicarbonate of 27, creatinine of 1.27 and a glucose of 122. Troponin was within normal limits. Chest x-ray showed no acute infiltrates. Patient was given DuoNebs, BiPAP and Solu-Medrol. Patient responded well and was admitted to the floor for further evaluation. Since being admitted to the hospital, patient feels significantly improved compared to previous. Patient is back to room air and tolerating well. Patient does continue to have a cough productive of green to yellow sputum. No hemoptysis has been reported. Patient reports he has been seen at the [place] previously and has been on Spiriva. Patient denies any unintentional weight loss. Patient does travel frequently, but is unaware of any obvious sick contacts. Patient was hospitalized in October with similar type presentation. Patient does not typically follow with a alley tender, but did have PFTs in 2015. Patient was noted to have an irreversible mild large airways obstructive ventilatory defect (FVC 117%, FEV1 88%, TLC 111%, DLCO 104%). Patient has also had a CTA of the chest in 2022 showing no PE, basilar fibrosis masses or mediastinal lymphadenopathy. Patient's last echocardiogram was completed in 2021 showing an EF of 55% with stage I diastolic dysfunction and a bioprosthetic aortic valve with mild to moderately dilated aortic root. Patient does report being in the and being stationed in [place]. Patient reports he is 100% disabled secondary to agent orange exposure. Review of systems otherwise negative from a constitutional, HEENT, respiratory, cardiovascular, GI, genitourinary, musculoskeletal, skin, neurologic, psychiatric and hematologic system unless stated above. REPLACED BY [facility] Medical History Anxiety and depression Arthritis Atherosclerotic heart disease of [place] coronary artery without angina pectoris Back pain Chronic anemia Chronic cough CKD (chronic kidney disease), stage III COPD (chronic obstructive pulmonary disease) Essential (primary) hypertension Former tobacco use History of colon polyps History of non-ST elevation myocardial infarction (NSTEMI) (08/2016) Hyperlipidemia Lumbar stenosis Non-rheumatic aortic stenosis PTSD (post-traumatic stress disorder) Sciatica Thoracic aortic aneurysm (TAA) Valvular heart disease Wears dentures Wears glasses Wears hearing aid Home Medications aspirin 81 mg chewable tablet 81 mg PO DAILY@0800 [facility] 09/04/16 [Rx Last Taken 12/08/23 07:00] tiotropium bromide 2.5 mcg/actuation mist for inhalation (Spiriva Respimat) 2 inh inhalation QAM breathing 04/19/21 [History Last Taken 12/08/23 07:00] pantoprazole 40 mg tablet,delayed release 40 mg PO DAILY gerd 03/13/22 [History Last Taken 12/08/23 07:00] paroxetine HCl 20 mg tablet 20 mg PO DAILY mood 03/13/22 [History Last Taken 12/08/23 07:00] acetaminophen 325 mg capsule (Tylenol) 650 mg PO Q6H PRN Pain 05/26/22 [History Last Taken Unknown] atorvastatin 40 mg tablet 40 mg PO QHS cholesterol #90 tabs 11/16/22 [Rx Last Taken 12/07/23 21:00] hydrochlorothiazide 25 mg tablet 25 mg PO DAILY blood pressu #90 tabs 11/16/22 [Rx Last Taken 12/08/23 07:00] lisinopril 20 mg tablet 20 mg PO QDAY blood pressure #90 tabs 11/16/22 [Rx Last Taken 12/08/23 07:00] prazosin 2 mg capsule 2 mg PO QHS . 10/16/23 [History Last Taken 12/07/23 20:00] albuterol sulfate 1.25 mg/3 mL solution for nebulization 1.25 mg inhalation Q4H PRN shortness of breath or wheezing 12/08/23 [History Last Taken 12/08/23 07:00] Allergy/AdvReac Type Severity Reaction Status Date / Time cyclobenzaprine AdvReac Other Verified 12/08/23 23:22 hydrocodone [From [place]] AdvReac Hallucinati Verified 12/08/23 23:22 ons oxycodone AdvReac Hallucinati Verified 12/08/23 23:22 ons prednisone AdvReac Other Verified 12/08/23 23:22 Family History Father CAD (coronary artery disease) Brother CAD (coronary artery disease) Mother Cancer Brother Cancer Brother Cancer Surgical History H/O coronary artery bypass surgery (10/11/16) History of aortic valve replacement (10/11/16) History of left heart catheterization (09/02/16) Hx of colonoscopy Hx of surgical procedure Social History household members: spouse Smoking Status: Former smoker alcohol intake: never substance use type: does not use caffeine: Yes Type: coffee Number of servings: 3 ROS ROS Narrative See HPI Physical Exam Const alert and oriented x3 Constitutional Narrative: Mild conversational dyspnea General Appearance: cooperative and comfortable HEENT normocephalic, head/scalp atraumatic and moist oral mucous membranes Eyes PERRL, EOMs intact bilaterally and conjunctivae normal Neck full ROM Chest Chest Narrative: Increased AP diameter Resp normal respiratory effort and no use of accessory muscles Auscultation: wheezes and diminished lung sounds; Negative for rales or rhonchi Cardio regular rate, regular rhythm, no murmurs and peripheral pulses 2+ throughout GI normal to inspection, nondistended, normoactive bowel sounds, soft to palpation, non-tender and non-distended Back/Spine normal ROM Extremity normal to inspection, full ROM and no pedal edema Skin no rashes or lesions noted Neuro oriented x3, CN's II-XII intact bilaterally, moves all extremities and no focal motor deficits Speech: speech normal Psych mental status grossly normal Medical Records Data Attestation: I reviewed the patient's medical records (See HPI) Lab / Micro Data Attestation: I reviewed the patient's lab results. 12/09/23 05:27 12/10/23 04:20 Labs: Laboratory Results - last 24 hr 12/10/23 04:20: Sodium 143, Potassium 4.1, Chloride 110 H, Carbon Dioxide 28.0, Anion Gap 5, BUN 19 H, Creatinine 1.27, Estim Creat Clear Calc 54.93, Est GFR (MDRD) Af Amer 71, Est GFR (MDRD) Non-Af 58 L, BUN/Creatinine Ratio 15.0, Glucose 137 H, Calcium 9.5 Charges/Coding Visit Charges Inpatient E&M: 55514 Init Hosp L2
--- NOTE | 2023-12-10 16:03 | DS.PCM_ITS ---
Providers Date of Admission: 12/08/23 Date of Discharge: 12/10/23 Primary Care Physician: Dr. Wade Barclay MD Consultations 12/09/23 16:48 Consult: Gambling Monitor / Pulmonary Medicine Routine Consulting Provider: Intensivists/Pulmonary Med Reason for Consult: AECOPD, recurrent exacerbations, never seen Pulm EMERGENT Consult: No MD Notified: Yes Date Notified: 12/10/23 Time Notified: 06:40 Method of Notification: Verbal Reason For Visit: RESP FAILURE, COPD EXACERBATION Diagnosis Discharge Diagnosis (1) COPD exacerbation: Status: Chronic Code(s): J44.1 - Chronic obstructive pulmonary disease with (acute) exacerbation (2) Hypertension: Status: Chronic Code(s): I10 - Essential (primary) hypertension (3) History of aortic valve replacement: Status: Chronic Code(s): Z95.2 - Presence of prosthetic heart valve Medications at Discharge Home Medications aspirin 81 mg chewable tablet 81 mg PO DAILY@0800 [facility] 09/04/16 tiotropium bromide 2.5 mcg/actuation mist for inhalation (Spiriva Respimat) 2 inh inhalation QAM breathing 04/19/21 pantoprazole 40 mg tablet,delayed release 40 mg PO DAILY gerd 03/13/22 paroxetine HCl 20 mg tablet 20 mg PO DAILY mood 03/13/22 acetaminophen 325 mg capsule (Tylenol) 650 mg PO Q6H PRN Pain 05/26/22 atorvastatin 40 mg tablet 40 mg PO QHS cholesterol #90 tabs 11/16/22 hydrochlorothiazide 25 mg tablet 25 mg PO DAILY blood pressu #90 tabs 11/16/22 lisinopril 20 mg tablet 20 mg PO QDAY blood pressure #90 tabs 11/16/22 prazosin 2 mg capsule 2 mg PO QHS . 10/16/23 albuterol sulfate 1.25 mg/3 mL solution for nebulization 1.25 mg inhalation Q4H PRN shortness of breath or wheezing 12/08/23 prednisone 10 mg tablet 10 mg PO DAILY #30 tabs 12/10/23 Hospital Course Procedures EKG and - (Chest x-ray) Summary of Care Provided Minutes Spent on Discharge: 36 Hospital Course: Mr. Young is a 78-year-old white male who presented to the emergency department [facility] on 12/08/2023 with shortness of breath and cough. The patient reported his shortness of breath started about 4 PM on the day of admit patient. He gave himself some breathing treatments at home however he became more short of breath and started coughing. He denies any recent fever or chills but his shortness of breath prompted him to call the emergency department. In the emergency department on arrival he was noted to be significantly dyspneic, tripoding with evidence of respiratory distress that prompted immediate transition to BiPAP therapy. Vital signs on presentation showed that he was afe brile but he had initial heart rate at 105 with improvement when placed on BiPAP to 72, initial blood pressure was 201/121 with improvement to 154/91 on BiPAP, respiratory rate was 24 and initial oxygen saturations were 96% on BiPAP. Room air oxygenation was not assessed due to his extremis on presentation. CBC was overall unremarkable. BMP was unremarkable. His troponin was normal at 12. EKG showed no acute findings consistent with ischemia and his chest x-ray showed no acute cardiopulmonary process. Blood cultures were obtained. Rapid flu, COVID, and RSV were negative. He was given nebulizers, and Solu-Medrol in the emergency department and request for admission was made. He was admitted to the telemetry floor on BiPAP and steroids, aggressive pulmonary toilet and supportive care were continued. He was not able to produce a sputum culture throughout his hospitalization and thus far cultures are unremarkable. Respiratory viral panel was obtained and was unremarkable. He was seen by pulmonary medicine to facilitate outpatient follow-up as he does have a history of potential tobacco abuse but no PFTs. Pulmonary medicine recommended to continue his prednisone and order a taper at discharge. We obtained a ambulatory pulse ox prior to discharge and he did not need any supplemental oxygen at discharge. They recommended follow-up with them in the next 2 weeks with an outpatient screening low-dose CT with his history of tobacco abuse and to continue with ongoing tobacco cessation. The patient was feeling much better and able to be discharged home in stable condition on 12/10/2023. I have also advised him to follow-up with his primary care physician within the next 2 weeks and we did make an appointment for him to see pulmonary medicine after discharge within the next 2 weeks. Also recommend outpatient cardiology follow-up as previously recommended. Discharge diagnoses: Acute hypoxic respiratory failure Acute exacerbation of COPD CAD Chronic anemia-stable Hyperlipidemia Lumbar stenosis History of aortic stenosis PTSD GERD Physical Exam Const alert, oriented x3, no apparent distress, average body habitus, no limitations and well nourished Constitutional Narrative: Older, white male who appears younger than stated age, lying in bed with his significant other sleeping but awakens easily, nontoxic, appears comfortable, anxious to go home General Appearance: cooperative, comfortable, well kempt and well developed Orientation / Consciousness: awake, oriented to person, oriented to place and oriented to time Exam Limitations: no limitations HEENT normocephalic, head/scalp atraumatic and moist oral mucous membranes; Negative for hearing grossly normal bilaterally HEENT Narrative: Dentures in place, Mallampati 2, no thrush, mild hearing loss Eyes PERRL, EOMs intact bilaterally and conjunctivae normal Eyes Narrative: No scleral icterus Neck no lymphadenopathy and supple Neck Narrative: Trachea midline, no thyroid enlargement Resp normal respiratory effort, no retractions and no use of accessory muscles Resp Narrative: Diminished diffusely with few end expiratory scattered wheezes Auscultation: wheezes Cardio regular rate, regular rhythm, S1 normal heart sound, S2 normal heart sound, no murmurs, no rub, no gallops and no clicks GI normal to inspection, nondistended, normoactive bowel sounds, soft to palpation and non-tender Extremity no clubbing, cyanosis or edema Extremity Narrative: Pedal pulses are 2+ Skin no rashes or lesions noted, no wounds, skin turgor normal and no jaundice Neuro oriented x3, CN's II-XII intact bilaterally, moves all extremities and no focal motor deficits Speech: speech normal Psych affect normal Psych Narrative: Eye contact is good and patient interacts appropriately Weight / BMI Weight Weight: 89.7 kg Body Mass Index (BMI) 28.3 ABG / Lab / Microbiology Data 12/09/23 05:27 12/10/23 04:20 Laboratory: Laboratory Results - last 24 hr 12/10/23 04:20: Sodium 143, Potassium 4.1, Chloride 110 H, Carbon Dioxide 28.0, Anion Gap 5, BUN 19 H, Creatinine 1.27, Estim Creat Clear Calc 54.93, Est GFR (MDRD) Af Amer 71, Est GFR (MDRD) Non-Af 58 L, BUN/Creatinine Ratio 15.0, Glucose 137 H, Calcium 9.5 Microbiology: Microbiology 12/09/23 01:00 Mucosa - Nasopharyngeal Respiratory Panel (PCR) - Final 12/08/23 20:23 Mucosa - Nose SARS-CoV-2, Influenza & RSV (PCR) - Final D/C Instructions Discharge Diet: Low fat / Low cholesterol Discharge Activity: Return to Normal Activity Meaningful Use Info Meaningful Use Diagnoses (Choose all that apply): None applicable Discharge Plan Admission Admit Date/Time: 12/08/23 22:13 Primary Reason for Your Visit: Shortness of breath Attending Provider: Daisy Victor Primary Care Provider: Wade Barclay Consulting Providers: Yulissa Gurrola; Glen Sanderson; Dane Santiago; Rodger Barclay; Nemesio Hilario; Rebeka Hernandez; James Lazo; Maddi Tolbert; Bhavik Marques; Vineet England; Mendoza Noland; Osei Ferreira; Bjorn Zhu; Adán Buitrago Instructions Additional Instructions / Restrictions: 1. Please complete prednisone taper as ordered Discharge Orders/Prescriptions Prescriptions: New prednisone 10 mg tablet 10 mg PO DAILY Qty: 30 0RF Rx Instructions: 4 tablets x 3 days, 3 tablets x 3 days, 2 tablets x 3 days, 1 tablet x 3 days Continued Spiriva Respimat 2.5 mcg/actuation mist 2 inh inhalation QAM pantoprazole 40 mg tablet,delayed release (DR/EC) 40 mg PO DAILY paroxetine HCl 20 mg tablet 20 mg PO DAILY aspirin 81 MG tablet,chewable 81 mg PO DAILY@0800 0RF acetaminophen [Tylenol] 325 mg Capsule 650 mg PO Q6H PRN (Reason: Pain) prazosin 2 mg capsule 2 mg PO QHS albuterol sulfate 1.25 mg/3 mL solution for nebulization 1.25 mg inhalation Q4H PRN (Reason: shortness of breath or wheezing) lisinopril 20 mg tablet 20 mg PO QDAY Qty: 90 3RF atorvastatin 40 mg tablet 40 mg PO QHS Qty: 90 3RF hydrochlorothiazide 25 mg tablet 25 mg PO DAILY Qty: 90 3RF Referrals / Follow Up: Wade Barclay MD [Primary Care Provider] - Within 2 Weeks Rafaela Tracey NP, [employer] [Med Staff - Adv Practice Prof] - 12/27/23 10:15 am Disposition Disposition (needs filled in before D/C Order can be placed): Home, Self Care Charges/Coding Visit Charges Inpatient E&M: 12707 Disch Hosp >30min
--- NOTE | 2023-12-10 16:36 | CASEMGMT ---
Patient has order for discharge. RN CM in to discuss needs at discharge. Patient denies needs or help at discharge. Patient had no further questions or concerns.
== END 2023-12-10 16:57 | disposition home or self-care (01) | DRG 189 ==
LOC: ED 21:58 → PCU 22:24
PROVIDERS: Hospitalist; Admitting Provider Family Medicine; Emergency Provider Emergency Medicine; PCP Family Medicine; Visit Provider Internal Medicine
DX: J96.01 Acute respiratory failure with hypoxia (principal); J44.1 Chronic obstructive pulmonary disease with (acute) exacerbation; D63.1 Anemia in chronic kidney disease; I71.20 Thoracic aortic aneurysm, without rupture, unspecified; N18.30 Chronic kidney disease, stage 3 unspecified; I12.9 Hypertensive chronic kidney disease with stage 1 through stage 4 chronic kidney disease, or unspecified chronic kidney disease; F32.A Depression, unspecified; M48.061 Spinal stenosis, lumbar region without neurogenic claudication; I25.10 Atherosclerotic heart disease of native coronary artery without angina pectoris; K21.9 Gastro-esophageal reflux disease without esophagitis; E78.5 Hyperlipidemia, unspecified; I25.2 Old myocardial infarction; F41.9 Anxiety disorder, unspecified; Z95.3 Presence of xenogenic heart valve; Z95.1 Presence of aortocoronary bypass graft; Z79.82 Long term (current) use of aspirin; Z79.899 Other long term (current) drug therapy; Z87.891 Personal history of nicotine dependence
CPT/HCPCS: 36415; 71045; 80048; 80053; 84145; 84484; 85025; 87040; 87631; 87633; 93005; 94002; 94640; 99285; A4216

== ENCOUNTER 2024-02-02 14:04 | Emergency (ER) | payer OTHER, SELFPAY ==
[2024-02-02 14:05] VITALS: BP 132/86; PULSE 77; RESP 24; TEMP 36.3; O2SAT 94; BMI 29.8
[2024-02-02 14:43] VITALS: PULSE 73; RESP 19
[2024-02-02] MEDS: Albuterol 2.5 MG/3 ML VIAL.NEB. INHALATION ×3 (14:45→14:54)
[2024-02-02] MEDS: Ipratropium/Albuterol Sulfate 3 ML AMPUL.NEB INHALATION (14:45)
[2024-02-02] MEDS: dexAMETHasone 10 MG/ML Vial IV (14:48)
[2024-02-02 15:04] VITALS: BP 137/98; PULSE 74; RESP 14; O2SAT 96
[2024-02-02 15:05] LABS: Absolute Lymphocyte Count 1.31 X10^3/uL (0.83-4.51); Absolute Neutrophil Count 2.7 X10^3/uL (2.0-7.7); Basophil# 0.06 X10^3/uL; Eosinophil# 1.22 X10^3/uL; Eosinophils% 20.7 % (0-5); Hemoglobin 11.8 g/dL (13.0-16.5); Lymphocyte # 1.31 X10^3/ul (0.83-4.51); Lymphocyte % 22.2 % (19-41); Mean Corp Hgb Conc 31.9 g/dL (32-36); Mean Corpuscular Hgb 30.6 pg (27.0-32.0); Mean Corpuscular Volume 96.1 fL (80-94); Mean Platelet Vol. 10.2 fl (6.2-12.0); Monocyte# 0.56 X10^3/uL; Monocyte% 9.5 % (0-10); NRBC Flagged by Analyzer 0 % (0-5); Neutrophil # 2.74 X10^3/uL (2.7-7.7); Neutrophil % 46.4 % (47-70); Platelet Count 124 K/mm3 (150-450); RBC Distribution Width CV 12.5 % (11.6-14.6); RBC Distribution Width SD 44.1 fl (35.1-43.9); Red Blood Count 3.85 M/mm3 (4.6-6.2); White Blood Count 5.9 K/mm3 (4.4-11.0)
[2024-02-02 15:23] LABS: Lactic Acid 1.2 mmol/L (0.4-1.9)
--- NOTE | 2024-02-02 15:25 | RAD_ITS ---
INDICATION: Productive cough, fever, dyspnea on exertion histo EXAMINATION/TECHNIQUE: X-RAY - XR Chest 2 Views COMPARISON: Prior study dated: 12/08/2023 FINDINGS: LINES/DEVICES: None. LUNGS: No consolidation, edema or effusion. No pneumothorax. MEDIASTINUM AND CARDIOVASCULAR STRUCTURES: Status post median sternotomy. The cardiac silhouette is within normal limits. Tortuosity of the thoracic aorta. BONES AND SOFT TISSUES: Unremarkable. RAD/Chest PA and Lateral IMPRESSION: No radiographic evidence of acute cardiopulmonary disease. Electronically Signed: Jose Mathews MD at 15:40 EDT ,
[2024-02-02 15:29] LABS: ALB/GLOB Ratio 1.2 RATIO (0.9-2.4); AST(SGOT) 22 U/L (15-37); Alanine Aminotransfer ALT/SGPT 15 U/L (16-61); Albumin, Serum 3.3 g/dL (3.2-5.0); Alkaline Phosphatase 72 U/L (45-117); Anion Gap 4 (5-15); BUN 12 mg/dL (7-18); BUN/Creat Ratio 9.5 RATIO (10-20); Calcium,Total 8.8 mg/dL (8.5-10.1); Chloride 112 mmol/L (98-107); Creatinine, Serum 1.26 mg/dL (0.70-1.30); EST Glomerular Filtration Rate 59 mL/min (>60); Est Glom Filt Rate - Afr Amer 71 mL/min (>60); Estimated Creatinine Clearance 56.61 ml/min; Globulin 2.7 g/dL (2.2-4.2); Glucose 117 mg/dL (74-106); Potassium 3.9 mmol/L (3.5-5.1); Sodium Level 143 mmol/L (136-145)
--- NOTE | 2024-02-02 15:32 | ED.VIS.DYS ---
HPI History of Present Illness Chief Complaint: Shortness of Breath Detail of Chief Complaint: Shortness of breath, wheezing history of COPD Informant: patient and spouse/S.O. Onset/Context/Timing Onset: Days Context: sudden Timing: Continuous Quality: Positive for Dyspnea on exertion and Wheezing; Negative for Orthopnea or PND Current Severity: Moderate Maximum Severity: Severe Worsened by: Exertion and Coughing Relieved by: Nothing and Albuterol (Patient's metered-dose inhaler has been empty for the past 2 days) Associated Symptoms yellow sputum; Negative for cough, rhinorrhea, post nasal drip, ear pain, fever, sore throat, subjective, chills or sweats Chest Pain: Positive for None Narrative Narrative: Patient is a 78-year-old male. He has history of COPD, coronary disease, valvular heart disease, thoracic aortic aneurysm, essential hypertension hyperlipidemia who presents with shortness of breath. Patient been sick for approximately week. He has not used his inhaler 2 days since it is empty. He has no refills. He has been on prednisone/steroid 3 to 6 months ago. He denies subjective or objective fever. He denies rhinorrhea, congestion postnasal drainage. He does have a cough productive of green sputum. He has been coughing up more sputum than normal. Color is unchanged from baseline. He denies history of PE or DVT. Denies leg pain, swelling discoloration. He has no risk factors for PE. Patient denies chest pain at rest, with breathing or exertion. He denies abdominal pain, nausea, vomiting or diarrhea. He denies dysuria, frequency, urgency or hematuria. PE Risk Factors: Negative for Cancer, OCP + Smoking + > 35, Prior DVT or PE, Recent immobilization, Recent surgery or Recent travel Prior similar symptoms: Yes (COPD) Recent Illness/Hospitalization: No PFSH [facility] Medical History Anxiety and depression Arthritis 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 Back pain Chronic anemia Chronic cough CKD (chronic kidney disease), stage III COPD (chronic obstructive pulmonary disease) Essential (primary) hypertension Former tobacco use History of colon polyps History of non-ST elevation myocardial infarction (NSTEMI) (08/2016) Hyperlipidemia Hypertension Lumbar stenosis Non-rheumatic aortic stenosis PTSD (post-traumatic stress disorder) Sciatica Thoracic aortic aneurysm (TAA) Valvular heart disease Wears dentures Wears glasses Wears hearing aid Home Medications aspirin 81 mg chewable tablet 81 mg PO DAILY@0800 heart health 09/04/16 [Rx Last Taken 12/08/23 07:00] tiotropium bromide 2.5 mcg/actuation mist for inhalation (Spiriva Respimat) 2 inh inhalation QAM breathing 04/19/21 [History Last Taken 12/08/23 07:00] pantoprazole 40 mg tablet,delayed release 40 mg PO DAILY gerd 03/13/22 [History Last Taken 12/08/23 07:00] paroxetine HCl 20 mg tablet 20 mg PO DAILY mood 03/13/22 [History Last Taken 12/08/23 07:00] acetaminophen 325 mg capsule (Tylenol) 650 mg PO Q6H PRN Pain 05/26/22 [History Last Taken Unknown] atorvastatin 40 mg tablet 40 mg PO QHS cholesterol #90 tabs 11/16/22 [Rx Last Taken 12/07/23 21:00] hydrochlorothiazide 25 mg tablet 25 mg PO DAILY blood pressu #90 tabs 11/16/22 [Rx Last Taken 12/08/23 07:00] lisinopril 20 mg tablet 20 mg PO QDAY blood pressure #90 tabs 11/16/22 [Rx Last Taken 12/08/23 07:00] prazosin 2 mg capsule 2 mg PO QHS . 10/16/23 [History Last Taken 12/07/23 20:00] albuterol sulfate 1.25 mg/3 mL solution for nebulization 1.25 mg inhalation Q4H PRN shortness of breath or wheezing 12/08/23 [History Last Taken 12/08/23 07:00] prednisone 10 mg tablet 10 mg PO DAILY #30 tabs 12/10/23 [Rx Last Taken Unknown] albuterol sulfate 2.5 mg/3 mL (0.083 %) solution for nebulization 2.5 mg (3 mL) inhalation Q4H PRN #25 vials 02/02/24 [Rx Last Taken Unknown] albuterol sulfate 90 mcg/actuation aerosol inhaler (Ventolin HFA) 2 puff inhalation Q4H PRN PRN Wheezing ##1 02/02/24 [Rx Last Taken Unknown] dexamethasone 4 mg tablet 4 mg PO DAILY #5 tabs 02/02/24 [Rx Last Taken Unknown] doxycycline monohydrate 100 mg capsule 100 mg PO BID #14 CAPSULES 02/02/24 [Rx Last Taken Unknown] inhalational spacing device (Aerochamber MV spacer) #1 ea 02/02/24 [Rx Last Taken Unknown] Allergy/AdvReac Type Severity Reaction Status Date / Time cyclobenzaprine AdvReac Other Verified 02/02/24 14:05 hydrocodone [From [place]] AdvReac Hallucinati Verified 02/02/24 14:05 ons oxycodone AdvReac Hallucinati Verified 02/02/24 14:05 ons prednisone AdvReac Other Verified 02/02/24 14:05 Family History Father CAD (coronary artery disease) Brother CAD (coronary artery disease) Mother Cancer Brother Cancer Brother Cancer Surgical History H/O coronary artery bypass surgery (10/11/16) History of aortic valve replacement (10/11/16) History of left heart catheterization (09/02/16) Hx of colonoscopy Hx of surgical procedure Social History household members: spouse Smoking Status: Former smoker alcohol intake: never substance use type: does not use caffeine: Yes Type: coffee Number of servings: 3 ROS ROS ED Constitutional Constitutional ED: Denies chills, fever(s), sweats or weight loss Eyes Eyes: Denies blurry vision, change in vision or diplopia ENT ENT ED: Denies ear pain, rhinorrhea or sore throat Cardiovascular Cardiovascular: Denies chest pain, orthopnea, palpitations or paroxysmal nocturnal dyspnea Respiratory/Chest Respiratory/Chest: Reports cough, dyspnea, dyspnea on exertion and sputum; Denies orthopnea or paroxysmal nocturnal dyspnea Gastrointestinal Gastrointestinal: Denies abdominal pain, diarrhea, nausea or vomiting Genitourinary Genitourinary ED: Denies dysuria, hematuria or urinary frequency Musculoskeletal Musculoskeletal: Denies arthralgias, back pain, myalgias or neck pain Integumentary Denies rash Neurologic Neurologic: Denies headache(s) or paresthesias Hematologic/Lymphatic Hematologic/Lymphatic: Denies easy bleeding or easy bruising EXAM Physical Exam Const Vital Signs: 02/02/24 14:05 02/02/24 14:04 02/02/24 14:43 Temperature 97.3 F L Temperature Source Temporal Pulse Rate 77 73 Respiratory Rate 24 H 19 H Respiratory Effort Short of Breath Respiratory Depth Respiratory Pattern Tachypnea Blood Pressure 132/86 H Blood Pressure Mean 101 Pulse Ox 94 Oxygen Delivery Method Room Air 02/02/24 14:51 02/02/24 15:04 Temperature Temperature Source Pulse Rate 74 Respiratory Rate 14 Respiratory Effort Short of Breath Respiratory Depth Normal Respiratory Pattern Normal Blood Pressure 137/98 H Blood Pressure Mean 111 Pulse Ox 96 Oxygen Delivery Method Room Air Room Air Vital signs are remarkable for tachypnea. Patient has audible wheezes. Positive well nourished and well developed General Appearance ED: well developed; Negative for NAD or pallor HEENT Reports moist mucous membranes HEENT Narrative: Head is atraumatic normocephalic. Nares patent no discharge. Posterior pharynx is normal. Ears are normal. Eyes PERRL and EOMs intact bilaterally General Eye ED: Negative for pale conjunctiva or scleral icterus Neck no lymphadenopathy, supple, no meningeal signs and no JVD Neck Narrative: Patient has inspiratory stridor. He has no history of obstructive sleep apnea. There is no cervical lymphadenopathy. Resp No normal respiratory effort and No clear to auscultation bilaterally Effort and Inspection: Negative for pain with movement Auscultation: wheezes expiratory wheezes and throughout Cardio regular rate, regular rhythm, S1 normal heart sound, S2 normal heart sound and no murmurs GI non-tender, non-distended and no masses Auscultation: normoactive bowel sounds Back/Spine no CVA tenderness and normal to inspection Extremity normal to inspection General Extremety ED: Negative for tenderness Neuro oriented x3 [place] Coma Scale: document GCS findings Spontaneous Obeys Commands Oriented 15 Sensorium / Orientation: alert Speech: speech normal Gait (Neuro): normal gait Psych mental status grossly normal Skin no wounds and skin turgor normal General Skin Exam: Negative for jaundice or pallor MDM MDM MDM Narrative Medical decision making narrative: Differential diagnosis is exacerbated COPD/chronic bronchitis, pneumonia, [place] due to viral or bacterial infection. Patient was treated with Decadron which she has tolerated in the past, Atrovent and albuterol nebulized treatments. Chest x-ray was obtained to assess for pneumonia. Appropriate blood work to assess white count and rule out anemia. Electrolyte panel was obtained to assess for endorgan dysfunction in the event that he has pneumonia to evaluate for sepsis. Lab Data Attestation: I reviewed the patient's lab results. Lab results narrative: CBC is remarked for mild anemia. Comprehensive metabolic panel reveals a creatinine of 1.26 with an estimated GFR 59. Labs: Laboratory Results - last 24 hr 02/02/24 14:33 WBC 5.9 RBC 3.85 L Hgb 11.8 L Hct 37.0 L MCV 96.1 H MCH 30.6 MCHC 31.9 L RDW Std Deviation 44.1 H RDW Coeff of Alyssa 12.5 Plt Count 124 L MPV 10.2 Immature Gran % (Auto) 0.200 Neut % (Auto) 46.4 L Lymph % (Auto) 22.2 [place] % (Auto) 9.5 Eos % (Auto) 20.7 H Baso % (Auto) 1.0 Absolute Neuts (auto) 2.7 Absolute Lymphs (auto) 1.31 Nucleated RBC % 0 Sodium 143 Potassium 3.9 Chloride 112 H Carbon Dioxide 27.0 Anion Gap 4 L BUN 12 Creatinine 1.26 Estim Creat Clear Calc 56.61 Est GFR (MDRD) Af Amer 71 Est GFR (MDRD) Non-Af 59 L BUN/Creatinine Ratio 9.5 L Glucose 117 H Lactic Acid 1.2 Calcium 8.8 Total Bilirubin 0.40 AST 22 ALT 15 L Alkaline Phosphatase 72 Total Protein 6.0 L Albumin 3.3 Globulin 2.7 Albumin/Globulin Ratio 1.2 Radiography Chest X-Ray - ED: 2 View and Read by ED Physician (Independent viewed interpreted by me at 1540. There is hyperaeration with chronic changes. Cardiac silhouette size normal. [place] is normal. Osseous trucks unremarkable. There is no infiltrate or effusion noted. There is no evidence of pneumothorax.) Diagnostic Testing: Clinical Impression(s) from Imaging Studies Chest X-Ray 02/02/24 15:25 IMPRESSION: No radiographic evidence of acute cardiopulmonary disease. Electronically Signed: Jose Mathews MD at 15:40 EDT , Treatment and Re-Evaluation :: Patient was reassessed at 1555. He no longer has audible wheezing. He is moving significantly more air. He does have expiratory wheezes. Prescription for albuterol nebulized solution was written, rescue inhaler, spacer, Decadron and doxycycline. Discharge Plan Triage Chief Complaint: Shortness of Breath Other Complaint: Chest Pain ED Provider: Binh Rao Dx/Rx/DC Orders Clinical Impression: Acute exacerbation of chronic obstructive pulmonary disease, Essential (primary) hypertension, Hyperlipidemia, 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, Acute exacerbation of chronic bronchitis, Acute bronchospasm Instructions: ED COPD Flare Prescriptions: New albuterol sulfate 2.5 mg /3 mL (0.083 %) solution for nebulization 2.5 mg inhalation Q4H PRN Qty: 25 0RF Rx Instructions: Use q4 hours and PRN for wheezing doxycycline monohydrate 100 mg capsule 100 mg PO BID Qty: 14 0RF albuterol sulfate [Ventolin HFA] 90 mcg/actuation HFA aerosol inhaler 2 puff inhalation Q4H PRN PRN (Reason: Wheezing) Qty: 1 0RF dexamethasone 4 mg tablet 4 mg PO DAILY Qty: 5 0RF (DME) Aerochamber MV Spacer See Rx Instructions .Route Qty: 1 0RF Rx Instructions: As directed No Action Spiriva Respimat 2.5 mcg/actuation mist 2 inh inhalation QAM pantoprazole 40 mg tablet,delayed release (DR/EC) 40 mg PO DAILY paroxetine HCl 20 mg tablet 20 mg PO DAILY aspirin 81 MG tablet,chewable 81 mg PO DAILY@0800 0RF acetaminophen [Tylenol] 325 mg Capsule 650 mg PO Q6H PRN (Reason: Pain) prazosin 2 mg capsule 2 mg PO QHS albuterol sulfate 1.25 mg/3 mL solution for nebulization 1.25 mg inhalation Q4H PRN (Reason: shortness of breath or wheezing) prednisone 10 mg tablet 10 mg PO DAILY Qty: 30 0RF Rx Instructions: 4 tablets x 3 days, 3 tablets x 3 days, 2 tablets x 3 days, 1 tablet x 3 days lisinopril 20 mg tablet 20 mg PO QDAY Qty: 90 3RF atorvastatin 40 mg tablet 40 mg PO QHS Qty: 90 3RF hydrochlorothiazide 25 mg tablet 25 mg PO DAILY Qty: 90 3RF Primary Care Provider: Wade Barclay Referrals: Wade Barclay MD [Primary Care Provider] - 3-5 Days if not improving Disposition Disposition: Home, Self Care
[2024-02-02 16:00] VITALS: BP 151/101; PULSE 86; RESP 16; O2SAT 98
[2024-02-02 16:25] VITALS: BP 151/101; PULSE 86; RESP 16; TEMP 36.7; O2SAT 98
== END 2024-02-02 16:25 | disposition home or self-care (01) ==
PROVIDERS: Emergency Provider Emergency Medicine; PCP Family Medicine; Visit Provider Emergency Medicine
DX: J44.1 Chronic obstructive pulmonary disease with (acute) exacerbation (principal); J20.9 Acute bronchitis, unspecified; E78.5 Hyperlipidemia, unspecified; I25.10 Atherosclerotic heart disease of native coronary artery without angina pectoris; I25.2 Old myocardial infarction; I10 Essential (primary) hypertension; Z95.1 Presence of aortocoronary bypass graft; Z87.891 Personal history of nicotine dependence
CPT/HCPCS: 71046; 80053; 83605; 85025; 94640; 96374; 99285; A4216

== ENCOUNTER → 2024-10-28 | Outpatient (CLI) | payer MEDICARE, OTHER, SELFPAY ==
--- NOTE | 2024-10-28 06:55 | ECHOD_ITS ---
Reason For Study: VALVE REPLACEMENT Procedure This was a 2D Doppler, Color Flow transthoracic echocardiogram. Exam performed in department. Left Ventricle Normal LV size. Left ventricular systolic function is normal. The left ventricular ejection fraction is 70 %. No regional wall motion abnormalities noted. Right Ventricle Normal RV size. Normal systolic function. Atria Normal left atrium. Normal right atrium. Mitral Valve Normal mitral valve. Tricuspid Valve Normal tricuspid valve. Aortic Valve Peak aortic valve gradient 16 mmHg. Mean aortic valve gradient 9 mmHg. Bioprosthetic aortic valve. Pulmonic Valve Normal pulmonic valve. Great Vessels Moderately dilated aortic root. The pulmonary artery is normal size. Normal inferior vena cava. Pericardium/Pleural No pericardial effusion. MMode/2D Measurements & Calculations LVIDd: 4.2 cm IVSd: 1.3 cm LVOT diam: 2.0 cm LVIDs: 2.4 cm LVPWd: 1.1 cm LVOT area: 3.2 cm2 RVDd: 4.3 cm FS: 42.9 % asc Aorta Diam: 4.5 cm LAV(MOD-bp): 58.3 ml LVAd ap4: 27.0 cm2 LAV(MOD-bp) Indexed: 28.7 ml/m2 LVLd ap4: 8.2 cm LAV(MOD-sp2): 63.5 ml EDV(MOD-sp4): 73.0 ml LAV(MOD-sp4): 46.7 ml EDV(sp4-el): 75.9 ml LVAs ap4: 13.2 cm2 LVLs ap4: 6.8 cm ESV(MOD-sp4): 24.2 ml ESV(sp4-el): 21.7 ml EF(MOD-sp4): 66.8 % EF(sp4-el): 71.4 % LVAd ap2: 24.3 cm2 SV(MOD-sp4): 48.7 ml SV(MOD-sp2): 44.7 ml LVLd ap2: 7.7 cm SI(MOD-sp4): 24.0 ml/m2 SI(MOD-sp2): 22.0 ml/m2 EDV(MOD-sp2): 63.8 ml EDV(sp2-el): 64.9 ml LVAs ap2: 12.0 cm2 LVLs ap2: 6.4 cm ESV(MOD-sp2): 19.1 ml ESV(sp2-el): 18.9 ml EF(MOD-sp2): 70.0 % SV(sp4-el): 54.2 ml Ao sinus diam: 3.[address] Junction: 2.9 cm LA dimension(2D): 3.6 cm LA A4 area: 17.0 cm2 RA A4 area: 15.5 cm2 TAPSE: 1.9 cm Time Measurements MV dec time: 0.21 sec Doppler Measurements & Calculations MV E max ranjeet: 61.9 cm/sec Lat Peak E' Ranjeet: 9.6 cm/sec Med Peak E' Ranjeet: 6.9 cm/sec MV A max ranjeet: 64.9 cm/sec E/E' lat: 6.4 E/E' med: 9.0 MV E/A: 0.95 MV dec slope: 299.2 cm/sec2 Ao V2 max: 204.3 cm/sec LV V1 max: 124.3 cm/sec Ao max P.7 mmHg LV V1 max P.2 mmHg Ao V2 mean: 139.1 cm/sec LV V1 mean P.0 mmHg Ao mean P.9 mmHg LV V1 mean: 77.5 cm/sec Ao V2 VTI: 44.6 cm LV V1 VTI: 30.3 cm AV (velocity ratio): 0.68 MAL(I,D): 2.2 cm2 MAL(V,D): 1.9 cm2 SV(LVOT): 96.0 ml PA V2 max: 104.6 cm/sec TR max ranjeet: 213.1 cm/sec TR max P.2 mmHg ECHO/Echo Complete Interpretation Summary Normal LV size. Left ventricular systolic function is normal. The left ventricular ejection fraction is 70 %. Bioprosthetic aortic valve. Mean aortic valve gradient 9 mmHg. Moderately dilated aortic root...unchanged Ordering Physician: Tiago Howell Referring Physician: Wade Barclay MD Performed By: Kimberly Mo RDCS
--- NOTE | 2024-10-28 16:33 | STRESSREP_ITS ---
Stress Test Report Exercise myocardial perfusion stress test. 79-year-old man with a history of chest pain Stress protocol: Resting EKG demonstrates normal sinus rhythm with a rate of 56 bpm resting blood pressure is 98/65 mmHg. The patient exercised according to the regular Dane protocol for a total duration of 5 minutes attaining a maximum heart rate of 133 bpm which was 93% of maximum predicted heart rate; the maximum workload was 7 metabolic equivalents. At rest there were no ST or T wave changes noted to suggest ischemia and at peak exercise upsloping ST changes only were noted which did not meet the criteria for ischemia. No clinical angina was noted the test was terminated due to the target heart rate being achieved/fatigue. The peak blood pressure was 124/74 mmHg. Rate-pressure product was 11,700 the patient was noted to experience leg weakness and mild dizziness about 2 minutes into stage III of the Dane protocol necessitating termination of the test. No chest pain was noted. After that the patient was noted to be hypotensive with a blood pressure getting down to a josé miguel of 72/48 mmHg. Patient was given 500 cc of normal saline with symptomatic improvement. Final blood pressure was 102/60 mmHg. Myocardial perfusion protocol. 12 mCi of technetium 99m sestamibi was injected at rest. The patient exercised according to regular Dane protocol for total duration of 5 minutes and at peak exercise 36 mCi of technetium 99m sestamibi was injected stress images were obtained stress and rest images were reconstructed in comparing the short axis vertical long and horizontal long axis. Gated images were also obtained. Perfusion SPECT analysis: Review of the stress images demonstrate normal uptake of tracer noted in all are as of the myocardium. The resting images similarly demonstrate normal uptake of tracer noted in all areas of the myocardium. No areas of reversibility are noted to suggest ischemia no previous infarct was noted. Gated SPECT analysis: The gated ejection fraction is 69%. Conclusion: Normal exercise myocardial perfusion stress test at a moderate workload Preserved ejection fraction. Cannot exclude vagal response. No obvious EKG or nuclear images noted
== END | disposition home or self-care (01) ==
LOC: CVS 06:47
PROVIDERS: PCP Family Medicine; Referring Provider Internal Medicine Cardiovascular Disease; Visit Provider Internal Medicine Cardiovascular Disease
DX: I71.21 Aneurysm of the ascending aorta, without rupture (principal); I25.10 Atherosclerotic heart disease of native coronary artery without angina pectoris; Z95.1 Presence of aortocoronary bypass graft
CPT/HCPCS: 78452; 93017; 93306; A9500; A4216